=== PATIENT | female | born 1955 | race American Indian/Alaskan Native ===

== ENCOUNTER 2018-10-02 03:49 | Inpatient (IN) | payer BC, MEDICAID, OTHER ==
[2018-10-02] MEDS ORDERED: TYLENOL PO ONE (04:19)
[2018-10-02] MEDS ORDERED: TYLENOL ONE (04:22)
[2018-10-02] MEDS ORDERED: NACL 0.9% 500 ML 500 ML IV ONE (04:24)
[2018-10-02 04:27] LABS: Hematocrit 39.8 % (30.3-42.9); Hemoglobin 13.7 gm/dl (10.1-14.3); Mean Corpuscular HGB Conc 35 % (30-34); Mean Corpuscular Volume 81 fl (79-97); Platelet Count 197 K/mm3 (140-440); Red Blood Count 4.91 M/mm3 (3.65-5.03); Red Cell Distribution Width 16.6 % (13.2-15.2)
--- NOTE | 2018-10-02 04:37 | XRay Report ---
PROCEDURE: XR CHEST 1V AP TECHNIQUE: Chest radiograph single view. HISTORY: possible Sepsis COMPARISONS: None . FINDINGS: Heart: The heart is mildly enlarged.. Mediastinum/Vessels: Normal. Lungs/Pleural space: There are no infiltrates or effusions.. Bony thorax: No acute osseous abnormality. Life support devices: None. IMPRESSION: No acute cardiopulmonary abnormality. This document is electronically signed by Steven Amin MD., Oct 02 2018 04:35:41 AM ET
[2018-10-02 04:51] LABS: Albumin 2.9 g/dL (3.9-5); Calcium 8.8 mg/dL (8.4-10.2)
[2018-10-02] MEDS ORDERED: ZOSYN/NS 3.375GM/50ML 3.375 GM/50 ML BAG IV ONE (05:04)
[2018-10-02 05:07] LABS: INR 1.05 (0.87-1.13)
[2018-10-02 05:12] LABS: Bacteria,Urine 3+ /HPF (Negative); Bilirubin,Urine NEG (Negative); Blood,Urine LG (Negative); Color,Urine Amber (Yellow); Mucus,Urine 2+ /HPF; Urobilinogen,Urine < 2.0 mg/dL (<2.0)
[2018-10-02 05:13] LABS: Protein,Urine >500 mg/dL (Negative); WBC,Urine > 182.0 /HPF (0.0-6.0)
[2018-10-02] MEDS ORDERED: CALCIUM CHLORIDE 1,000 MG in NACL 0.9% 100 ML IV ONE (05:13)
[2018-10-02] MEDS ORDERED: PROVENTIL IH ONE (05:13)
[2018-10-02] MEDS ORDERED: KIONEX PO ONE (05:13)
[2018-10-02] MEDS ORDERED: HumuLIN R IV ONE (05:13)
[2018-10-02] MEDS ORDERED: NACL 0.9% 1000 ML 1,000 ML ONE (05:34)
--- NOTE | 2018-10-02 05:34 | Emergency Department Report ---
ED General Adult HPI - General Chief complaint: Hyperglycemia Stated complaint: KNEE PAIN Time Seen by Provider: 10/02/18 05:06 Source: patient, EMS Mode of arrival: Stretcher Limitations: No Limitations - History of Present Illness Initial comments: Patient is 63 years old female with history of diabetes, COPD and arthritis. Patient brought to the emergency room via EMS for evaluation of generalized weakness for the last 3 days. Patient found to be febrile with a temperature of 102.3 and tachycardic. Sepsis protocol initiated. Patient denied any cough, shortness of breath, chest pain, nausea or vomiting. Severity scale (0 -10): 0 - Related Data Allergies Allergy/AdvReac Type Severity Reaction Status Date / Time No Known Allergies Allergy Verified 10/02/18 04:22 ED Review of Systems ROS: Stated complaint: KNEE PAIN Other details as noted in HPI Comment: All other systems reviewed and negative Constitutional: chills, fever Respiratory: denies: cough, orthopnea, shortness of breath, SOB with exertion, SOB at rest, wheezing Cardiovascular: denies: chest pain, palpitations Gastrointestinal: denies: abdominal pain, nausea, vomiting Neurological: weakness. denies: headache, numbness, paresthesias, confusion, abnormal gait ED Past Medical Hx - Past Medical History Previous Medical History?: Yes Hx Hypertension: Yes Hx Diabetes: Yes Hx COPD: Yes - Surgical History Past Surgical History?: No - Social History Smoking Status: Former Smoker Substance Use Type: None ED Physical Exam - General Limitations: No Limitations General appearance: alert, in no apparent distress - Head Head exam: Present: atraumatic, normocephalic, normal inspection - ENT ENT exam: Present: mucous membranes dry - Neck Neck exam: Present: normal inspection, full ROM. Absent: tenderness, meningismus, lymphadenopathy, thyromegaly - Respiratory Respiratory exam: Present: normal lung sounds bilaterally - Cardiovascular Cardiovascular Exam: Present: regular rate, normal rhythm, normal heart sounds - GI/Abdominal GI/Abdominal exam: Present: soft, normal bowel sounds. Absent: distended, tenderness, guarding, rebound, rigid, organomegaly, mass, bruit, pulsatile mass, hernia - Extremities Exam Extremities exam: Present: normal inspection, full ROM, normal capillary refill. Absent: pedal edema, calf tenderness - Back Exam Back exam: Present: normal inspection, full ROM. Absent: tenderness, CVA tenderness (R), CVA tenderness (L), muscle spasm, paraspinal tenderness, vertebral tenderness - Neurological Exam Neurological exam: Present: alert, oriented X3, CN II-XII intact, normal gait, reflexes normal - Skin Skin exam: Present: warm, intact, normal color ED Course Vital Signs 10/02/18 10/02/18 04:18 05:26 Temperature 102.8 F H 98.7 F Pulse Rate 103 H Respiratory 24 Rate Blood Pressure 139/115 [Left] O2 Sat by Pulse 95 Oximetry ED Medical Decision Making - Lab Data Result diagrams: 10/02/18 04:17 10/02/18 04:17 - EKG Data -: EKG Interpreted by Nh EKG shows normal: sinus rhythm Rate: normal - EKG Data Interpretation: no acute changes - Radiology Data Radiology results: report reviewed Chest x-ray is unremarkable. - Medical Decision Making Patient is 63 years old female with history of diabetes, COPD and arthritis. Patient brought to the emergency room via EMS for evaluation of generalized weakness for the last 3 days. Patient found to be febrile with a temperature of 102.3 and tachycardic. Sepsis protocol initiated. Patient denied any cough, shortness of breath, chest pain, nausea or vomiting. Patient received Tylenol, normocephalic, Zosyn. Patient found to have a potassium of 6.9. Patient received insulin, Kayexalate, albuterol and calcium chloride. I discussed the patient is Dr. Magnolia Cabrera, she agreed to admit the patient to medical service. Critical Care Time: Yes Critical care time in (mins) excluding proc time.: 30 Critical care attestation.: If time is entered above; I have spent that time in minutes in the direct care of this critically ill patient, excluding procedure time. ED Disposition Clinical Impression: Sepsis, UTI (urinary tract infection), Acute renal failure, Acute hyperkalemia Disposition: OP ADMIT IP TO THIS HOSP Is pt being admited?: Yes Condition: Stable Referrals: PRIMARY CARE, [Primary Care Provider] - 3-5 Days
[2018-10-02] MEDS ORDERED: NACL 0.9% 1000 ML 1,000 ML IV ONE (05:35)
[2018-10-02] MEDS ORDERED: ZOFRAN IV PRN (05:42)
[2018-10-02] MEDS ORDERED: SODIUM CHLORIDE FLUSH SYRINGE 10 ML IV PRN (05:42)
[2018-10-02] MEDS ORDERED: PROVENTIL IH PRN (05:42)
[2018-10-02] MEDS ORDERED: NACL 0.9% 1000 ML 1,000 ML IV SCH (06:00)
[2018-10-02] MEDS ORDERED: D50W (25GM) Syringe IV PRN (06:04)
--- NOTE | 2018-10-02 06:16 | History and Physical Report ---
<SORAYA VALENTIN - Last Filed: 10/02/18 06:26> History of Present Illness Date of examination: 10/02/18 Date of admission: 10/02/1916 Chief complaint: Generalized weakness 3 days History of present illness: Patient is a 63-year-old female with PMHx of COPD, DM type 2, arthritis, obesity, who was brought to the ER by EMS for complaints of generalized weakness 3 days. Patient reports generalized weakness, denies any cough, shortness of breath on exertion, denies any chest pain denies any leg pains, denies any numbness, denies any nausea or vomiting, denies any fever. On arrival to the ER, patient's temperature was 102.3, she was tachycardic, her chest x-ray was negative for cardiopulmonary findings, her UA showed nausea, large amount of blood, 3+ bacteria and high WBCs, potassium was 6.9 and lactic acid was 2.6, her blood glucose was greater than 400. Patient was started on IV fluid, broad- spectrum antibiotics, calcium and insulin for the hyperglycemia, she was admitted for further evaluation and treatment. Past History Past Medical History: No medical history, diabetes, hypertension, hyperlipidemia Social history: no significant social history Medications and Allergies Allergies Allergy/AdvReac Type Severity Reaction Status Date / Time No Known Allergies Allergy Verified 10/02/18 04:22 Home Medications Medication Instructions Recorded Confirmed Last Taken Type AtorvaSTATin [Lipitor] 20 mg PO QHS 10/03/18 10/03/18 10/01/18 History Gabapentin [Neurontin] 100 mg PO Q8HR 10/03/18 10/03/18 10/01/18 History Glimepiride [Amaryl] 4 mg PO QAM 10/03/18 10/03/18 10/01/18 History Metformin HCl [metFORMIN] 1,000 mg PO BIDAC 10/03/18 10/03/18 10/01/18 History Omeprazole 40 mg PO QAM 10/03/18 10/03/18 10/01/18 History amLODIPine [Norvasc] 10 mg PO DAILY 10/03/18 10/03/18 10/01/18 History Active Meds: Active Medications Acetaminophen (Tylenol) 650 mg PO Q4H PRN PRN Reason: Pain MILD(1-3)/Fever >100.5/[place] Albuterol (Proventil) 2.5 mg IH Q3HRT PRN PRN Reason: Shortness Of Breath Dextrose (D50w (25gm) Syringe) 50 ml IV PRN PRN PRN Reason: Hypoglycemia Famotidine (Pepcid) 20 mg IV BID KATHY Heparin Sodium (Porcine) (Heparin) 5,000 unit SUB-Q Q12HR KATHY Sodium Chloride (Nacl 0.9% 1000 Ml) 1,000 mls @ 250 mls/hr IV ONCE ONE Stop: 10/02/18 09:34 Sodium Chloride (Nacl 0.9% 1000 Ml) 1,000 mls @ 75 mls/hr IV DIRECT KATHY Insulin Glargine (Lantus) 10 units SUB-Q QAMDIAB KATHY Insulin Human Lispro (Humalog) 0 unit SUB-Q ACHS KATHY; Protocol Ondansetron HCl (Zofran) 4 mg IV Q8H PRN PRN Reason: Nausea And Vomiting Sodium Chloride (Sodium Chloride Flush Syringe 10 Ml) 10 ml IV BID KATHY Sodium Chloride (Sodium Chloride Flush Syringe 10 Ml) 10 ml IV PRN PRN PRN Reason: LINE FLUSH Review of Systems Constitutional: fatigue, weakness, poor appetite Ears, nose, mouth and throat: other Breasts: deferred Cardiovascular: leg edema (lower extremity swelling) Gastrointestinal: other Exam - Constitutional Vitals: Temp Pulse Resp BP Pulse Ox 98.7 F 103 H 24 139/115 95 10/02/18 05:26 10/02/18 04:18 10/02/18 04:18 10/02/18 04:18 10/02/18 04:18 General appearance: Present: mild distress - EENT Eyes: Present: EOM intact, irregular pupil - Neck Neck: Present: normal ROM - Respiratory Respiratory effort: labored Respiratory: bilateral: diminished - Cardiovascular Heart rate: 93 (tachycardia) - Extremities Extremities: normal temperature, Full ROM Peripheral Pulses: within normal limits - Abdominal General gastrointestinal: Present: deferred Female genitourinary: Present: deferred - Rectal Rectal Exam: deferred - Integumentary Integumentary: Present: warm, dry - Musculoskeletal Musculoskeletal: strength equal bilaterally - Psychiatric Psychiatric: cooperative - Neurologic Neurologic: moves all extremities Results - Labs CBC & Chem 7: 10/02/18 04:17 10/02/18 04:17 Labs: Laboratory Last Values WBC 25.4 K/mm3 (4.5-11.0) H 10/02/18 04:17 RBC 4.91 M/mm3 (3.65-5.03) 10/02/18 04:17 Hgb 13.7 gm/dl (10.1-14.3) 10/02/18 04:17 Hct 39.8 % (30.3-42.9) 10/02/18 04:17 MCV 81 fl (79-97) 10/02/18 04:17 MCH 28 pg (28-32) 10/02/18 04:17 MCHC 35 % (30-34) H 10/02/18 04:17 RDW 16.6 % (13.2-15.2) H 10/02/18 04:17 Plt Count 197 K/mm3 (140-440) 10/02/18 04:17 Seg Neutrophils % Computer Assembler 10/02/18 04:17 PT 14.4 Sec. (12.2-14.9) 10/02/18 04:36 INR 1.05 (0.87-1.13) 10/02/18 04:36 VBG pH 7.304 (7.320-7.420) L 10/02/18 04:36 Sodium 126 mmol/L (137-145) L 10/02/18 04:17 Potassium 6.9 mmol/L (3.6-5.0) H* 10/02/18 04:17 Chloride 86.7 mmol/L (98-107) L 10/02/18 04:17 Carbon Dioxide 19 mmol/L (22-30) L 10/02/18 04:17 27 mmol/L 10/02/18 04:17 BUN 45 mg/dL (7-17) H 10/02/18 04:17 1.9 mg/dL (0.7-1.2) H 10/02/18 04:17 Estimated GFR 32 ml/min 10/02/18 04:17 24 % 10/02/18 04:17 Glucose 448 mg/dL (65-100) H 10/02/18 04:17 POC Glucose 372 (70-105) H 10/02/18 04:14 Lactic Acid 2.60 mmol/L (0.7-2.0) H* 10/02/18 04:36 Calcium 8.8 mg/dL (8.4-10.2) 10/02/18 04:17 0.70 mg/dL (0.1-1.2) 10/02/18 04:17 AST 58 units/L (5-40) H 10/02/18 04:17 ALT 26 units/L (7-56) 10/02/18 04:17 146 units/L (35-129) H 10/02/18 04:17 NT-Pro-B Natriuret Pep 1081 pg/mL (0-900) H 10/02/18 04:17 8.6 g/dL (6.3-8.2) H 10/02/18 04:17 2.9 g/dL (3.9-5) L 10/02/18 04:17 0.5 % 10/02/18 04:17 Teresa (Yellow) 10/02/18 04:44 Turbid (Clear) 10/02/18 04:44 5.0 (5.0-7.0) 10/02/18 04:44 Ur Specific [place] 1.015 (1.003-1.030) 10/02/18 04:44 >500 mg/dL (Negative) 10/02/18 04:44 >=500 mg/dL (Negative) 10/02/18 04:44 20 mg/dL (Negative) 10/02/18 04:44 Lg (Negative) 10/02/18 04:44 Neg (Negative) 10/02/18 04:44 Neg (Negative) 10/02/18 04:44 < 2.0 mg/dL (<2.0) 10/02/18 04:44 Ur Leukocyte Esterase Lg (Negative) 10/02/18 04:44 > 182.0 /HPF (0.0-6.0) H 10/02/18 04:44 66.0 /HPF (0.0-6.0) 10/02/18 04:44 U Epithel Cells (Auto) 2.0 /HPF (0-13.0) 10/02/18 04:44 3+ /HPF (Negative) 10/02/18 04:44 3+ /HPF 10/02/18 04:44 2+ /HPF 10/02/18 04:44 Assessment and Plan Assessment and plan: 1. Urosepsis 2. Generalized weakness 3. Acute febrile illness (due to #1) 4. Hyperkalemia (likely pseudo-hyperkalemia) 5. Uncontrolled DM type II 6. Mild CHF 7. Hypertension 8. Hyperlipidemia 9. Dehydration 10. SAMMI/likely due to dehydration 11. Osteoarthritis 12. Lactic acidosis Plan: Patient is admitted for urosepsis and febrile illness Blood culture pending Broad-spectrum antibiotics started Continue IV fluid for hydration and renal perfusion Monitor potassium and electrolytes Monitor blood glucose Vital signs every 4 hours Resume home meds 1 once available DVT prophylaxis with heparin Plan of care was discussed with patient need reinforcement Patient's condition and plan of care discussed with Dr. Cabrera Advance Directives: Yes VTE prophylaxis?: Chemical Plan of care discussed with patient/family: Yes <TIMOTHY CABRERA - Last Filed: 10/10/18 04:51> Medications and Allergies Active Meds: Active Medications Acetaminophen (Tylenol) 650 mg PO Q4H PRN PRN Reason: Pain MILD(1-3)/Fever >100.5/[place] Albuterol (Proventil) 2.5 mg IH Q3HRT PRN PRN Reason: Shortness Of Breath Dextrose (D50w (25gm) Syringe) 50 ml IV PRN PRN PRN Reason: Hypoglycemia Famotidine (Pepcid) 20 mg IV BID KATHY Heparin Sodium (Porcine) (Heparin) 5,000 unit SUB-Q Q12HR KATHY Sodium Chloride (Nacl 0.9% 1000 Ml) 1,000 mls @ 250 mls/hr IV ONCE ONE Stop: 10/02/18 09:34 Sodium Chloride (Nacl 0.45% 1000 Ml) 1,000 mls @ 100 mls/hr IV DIRECT KATHY Insulin Human Lispro (Humalog) 0 unit SUB-Q ACHS KATHY; Protocol Ondansetron HCl (Zofran) 4 mg IV Q8H PRN PRN Reason: Nausea And Vomiting Sodium Chloride (Sodium Chloride Flush Syringe 10 Ml) 10 ml IV BID KATHY Sodium Chloride (Sodium Chloride Flush Syringe 10 Ml) 10 ml IV PRN PRN PRN Reason: LINE FLUSH Exam - Constitutional Vitals: Temp Pulse Resp BP Pulse Ox 98.7 F 103 H 24 139/115 95 10/02/18 05:26 10/02/18 04:18 10/02/18 04:18 10/02/18 04:18 10/02/18 04:18 Results - Labs CBC & Chem 7: 10/03/18 04:43 10/09/18 04:52 Labs: Laboratory Last Values WBC 25.4 K/mm3 (4.5-11.0) H 10/02/18 04:17 RBC 4.91 M/mm3 (3.65-5.03) 10/02/18 04:17 Hgb 13.7 gm/dl (10.1-14.3) 10/02/18 04:17 Hct 39.8 % (30.3-42.9) 10/02/18 04:17 MCV 81 fl (79-97) 10/02/18 04:17 MCH 28 pg (28-32) 10/02/18 04:17 MCHC 35 % (30-34) H 10/02/18 04:17 RDW 16.6 % (13.2-15.2) H 10/02/18 04:17 Plt Count 197 K/mm3 (140-440) 10/02/18 04:17 Seg Neutrophils % Computer Assembler 10/02/18 04:17 PT 14.4 Sec. (12.2-14.9) 10/02/18 04:36 INR 1.05 (0.87-1.13) 10/02/18 04:36 VBG pH 7.304 (7.320-7.420) L 10/02/18 04:36 Sodium 126 mmol/L (137-145) L 10/02/18 04:17 Potassium 6.9 mmol/L (3.6-5.0) H* 10/02/18 04:17 Chloride 86.7 mmol/L (98-107) L 10/02/18 04:17 Carbon Dioxide 19 mmol/L (22-30) L 10/02/18 04:17 27 mmol/L 10/02/18 04:17 BUN 45 mg/dL (7-17) H 10/02/18 04:17 1.9 mg/dL (0.7-1.2) H 10/02/18 04:17 Estimated GFR 32 ml/min 10/02/18 04:17 24 % 10/02/18 04:17 Glucose 448 mg/dL (65-100) H 10/02/18 04:17 POC Glucose 372 (70-105) H 10/02/18 04:14 Lactic Acid 2.60 mmol/L (0.7-2.0) H* 10/02/18 04:36 Calcium 8.8 mg/dL (8.4-10.2) 10/02/18 04:17 0.70 mg/dL (0.1-1.2) 10/02/18 04:17 AST 58 units/L (5-40) H 10/02/18 04:17 ALT 26 units/L (7-56) 10/02/18 04:17 146 units/L (35-129) H 10/02/18 04:17 NT-Pro-B Natriuret Pep 1081 pg/mL (0-900) H 10/02/18 04:17 8.6 g/dL (6.3-8.2) H 10/02/18 04:17 2.9 g/dL (3.9-5) L 10/02/18 04:17 0.5 % 10/02/18 04:17 Teresa (Yellow) 10/02/18 04:44 Turbid (Clear) 10/02/18 04:44 5.0 (5.0-7.0) 10/02/18 04:44 Ur Specific [place] 1.015 (1.003-1.030) 10/02/18 04:44 >500 mg/dL (Negative) 10/02/18 04:44 >=500 mg/dL (Negative) 10/02/18 04:44 20 mg/dL (Negative) 10/02/18 04:44 Lg (Negative) 10/02/18 04:44 Neg (Negative) 10/02/18 04:44 Neg (Negative) 10/02/18 04:44 < 2.0 mg/dL (<2.0) 10/02/18 04:44 Ur Leukocyte Esterase Lg (Negative) 10/02/18 04:44 > 182.0 /HPF (0.0-6.0) H 10/02/18 04:44 66.0 /HPF (0.0-6.0) 10/02/18 04:44 U Epithel Cells (Auto) 2.0 /HPF (0-13.0) 10/02/18 04:44 3+ /HPF (Negative) 10/02/18 04:44 3+ /HPF 10/02/18 04:44 2+ /HPF 10/02/18 04:44 Assessment and Plan Assessment and plan: 63 year old woman with history of hypertension, diabetes, sleep apnea, hyperlipidemia, emergency room complaining of nausea vomiting and diarrhea 1 week and she's been unable to eat, stating that her diarrhea has resolved. She states she has a stomach problem flares up every now and then it gives her GI symptoms but she cannot recall the name of it. Last night she went to the toilet, she was unable to get up due to generalized weakness. Patient with sepsis secondary to urinary tract infection, acute renal failure, hyperkalemia, dehydration. Continue Zosyn, IV fluids. Hold long-acting insulin until the patient is able to eat, DVT prophylaxis. Follow-up potassium level
[2018-10-02] MEDS ORDERED: NACL 0.45% 1000 ML 1,000 ML IV SCH (07:00)
[2018-10-02 07:07] LABS: Band Neutrophils # (Manual) 0.8 K/mm3; Basophils % (Manual) 0 % (0.0-1.8); Eosinophils % (Manual) 0 % (0.0-4.3); Total Cells Counted 100
[2018-10-02 07:08] LABS: Anisocytosis 1+; Target Cells Few
[2018-10-02] MEDS: HumaLOG SUB-Q SCH ×4 (07:30→21:51)
[2018-10-02] MEDS ORDERED: LANTUS SUB-Q SCH (08:00)
[2018-10-02] MEDS: SODIUM CHLORIDE FLUSH SYRINGE 10 ML IV SCH ×2 (09:23→21:06)
[2018-10-02] MEDS: PEPCID IV SCH ×2 (09:23→21:05)
[2018-10-02] MEDS: HEPARIN SUB-Q SCH ×2 (09:24→21:06)
[2018-10-02] MEDS ORDERED: SODIUM BICARBONATE 150 MEQ in D5W 1,000 ML IV ONE (10:32)
--- NOTE | 2018-10-02 10:36 | Consultation ---
History of Present Illness - Reason for Consult Consult date: 10/02/18 acute renal failure, hyperkalemia, metabolic acidosis Requesting physician: SORAYA VALENTIN - History of Present Illness Patient is 63 years old female with history of diabetes, COPD and arthritis. Patient brought to the emergency room via EMS for evaluation of generalized weakness for the last 3 days. Patient found to be febrile with a temperature of 102.3 and tachycardic. Sepsis protocol initiated. Patient denied any cough, shortness of breath, chest pain, nausea or vomiting. Severity scale (0 -10): 0 ROS: Stated complaint: KNEE PAIN Other details as noted in HPI Comment: All other systems reviewed and negative Constitutional: chills, fever Respiratory: denies: cough, orthopnea, shortness of breath, SOB with exertion, SOB at rest, wheezing Cardiovascular: denies: chest pain, palpitations Gastrointestinal: denies: abdominal pain, nausea, vomiting Neurological: weakness. denies: headache, numbness, paresthesias, confusion, abnormal gait - Past Medical History Previous Medical History?: Yes Hx Hypertension: Yes Hx Diabetes: Yes Hx COPD: Yes - Surgical History Past Surgical History?: No - Social History Smoking Status: Former Smoker Substance Use Type: None Past History Past Medical History: No medical history, diabetes, hypertension, hyperlipidemia Social history: no significant social history Medications and Allergies Allergies Allergy/AdvReac Type Severity Reaction Status Date / Time No Known Allergies Allergy Verified 10/02/18 04:22 Active Meds: Active Medications Acetaminophen (Tylenol) 650 mg PO Q4H PRN PRN Reason: Pain MILD(1-3)/Fever >100.5/[place] Albuterol (Proventil) 2.5 mg IH Q3HRT PRN PRN Reason: Shortness Of Breath Dextrose (D50w (25gm) Syringe) 50 ml IV PRN PRN PRN Reason: Hypoglycemia Famotidine (Pepcid) 20 mg IV BID [facility] Last Admin: 10/02/18 09:23 Dose: 20 mg Documented by: Heparin Sodium (Porcine) (Heparin) 5,000 unit SUB-Q Q12HR [facility] Last Admin: 10/02/18 09:24 Dose: 5,000 unit Documented by: Piperacillin Sod/Tazobactam Sod (Zosyn/Ns 3.375gm/50ml) 3.375 gm in 50 mls @ 100 mls/hr IV Q8HR [facility] Insulin Human Lispro (Humalog) 0 unit SUB-Q ACHS [facility]; Protocol Last Admin: 10/02/18 07:30 Dose: Not Given Documented by: Ondansetron HCl (Zofran) 4 mg IV Q8H PRN PRN Reason: Nausea And Vomiting Sodium Chloride (Sodium Chloride Flush Syringe 10 Ml) 10 ml IV BID [facility] Last Admin: 10/02/18 09:23 Dose: 10 ml Documented by: Sodium Chloride (Sodium Chloride Flush Syringe 10 Ml) 10 ml IV PRN PRN PRN Reason: LINE FLUSH Exam - Vital Signs Vital signs: Vital Signs Temp Pulse Resp BP Pulse Ox 102.8 F H 103 H 24 139/115 95 10/02/18 04:18 10/02/18 04:18 10/02/18 04:18 10/02/18 04:18 10/02/18 04:18 - Physical Exam Narrative exam: - General Limitations: No Limitations General appearance: alert, in no apparent distress - Head Head exam: Present: atraumatic, normocephalic, normal inspection - ENT ENT exam: Present: mucous membranes dry - Neck Neck exam: Present: normal inspection, full ROM. Absent: tenderness, meningismus, lymphadenopathy, thyromegaly - Respiratory Respiratory exam: Present: normal lung sounds bilaterally - Cardiovascular Cardiovascular Exam: Present: regular rate, normal rhythm, normal heart sounds - GI/Abdominal GI/Abdominal exam: Present: soft, normal bowel sounds. Absent: distended, tenderness, guarding, rebound, rigid, organomegaly, mass, bruit, pulsatile mass, hernia - Extremities Exam Extremities exam: Present: normal inspection, full ROM, normal capillary refill. Absent: pedal edema, calf tenderness - Back Exam Back exam: Present: normal inspection, full ROM. Absent: tenderness, CVA tenderness (R), CVA tenderness (L), muscle spasm, paraspinal tenderness, vertebral tenderness - Neurological Exam Neurological exam: Present: alert, oriented X3, CN II-XII intact, normal gait, reflexes normal - Skin Skin exam: Present: warm, intact, normal color Results - Lab Results 10/02/18 04:17 10/02/18 04:17 Most recent lab results Calcium 8.8 mg/dL (8.4-10.2) 10/02/18 04:17 Assessment and Plan Impression: * SAMMI * pyelonephritis * sepsis * hyperkalemia * metabolic acidosis * hyponatremia * type 2 DM * HTN Plan: * add bicarb gtt * follow up renal us with pvr * iv abx for pyelonephritis * follow up k level, s/p kayexalate * daily lytes * strict i/os
--- NOTE | 2018-10-02 12:03 | Progress Note ---
Assessment and Plan Assessment and plan: Sepsis. Etiology secondary to UTI. Follow-up blood and urine cultures. Follow lactic acid levels Acute renal failure. Etiology secondary to sepsis/acute kidney injury. Nephrology consult. Follow-up renal ultrasound. Pyelonephritis/UTI. As above. Hyperkalemia. Etiology secondary to renal failure. follow up k level, s/p kayexalate Metabolic acidosis. Bicarbonate drip. Diabetes mellitus type 2. Continue Accu-Cheks and sliding scale as. Hypertension. Resume antihypertensive medications. History Interval history: lisa is 63 years old female with history of diabetes, COPD and arthritis. Patient brought to the emergency room via EMS for evaluation of generalized weakness for the last 3 days. Patient found to be febrile with a temperature of 102.3 and tachycardic. Sepsis protocol initiated. Patient denied any cough, shortness of breath, chest pain, nausea or vomiting. No new issues overnight. Hospitalist Physical - Constitutional Vitals: Temp Pulse Resp BP Pulse Ox 98.7 F 103 H 24 139/115 95 10/02/18 05:26 10/02/18 04:18 10/02/18 04:18 10/02/18 04:18 10/02/18 04:18 General appearance: Present: no acute distress - EENT Eyes: Present: PERRL, EOM intact ENT: hearing intact, clear oral mucosa, dentition normal - Neck Neck: Present: supple, normal ROM - Respiratory Respiratory effort: normal Respiratory: bilateral: CTA - Cardiovascular Rhythm: regular Heart Sounds: Present: S1 & S2. Absent: gallop, rub - Extremities Extremities: no ischemia, No edema, Full ROM - Abdominal General gastrointestinal: soft, non-tender, non-distended, normal bowel sounds - Integumentary Integumentary: Present: clear, warm, dry - Neurologic Neurologic: CNII-XII intact, moves all extremities Results - Labs CBC & Chem 7: 10/02/18 04:17 10/02/18 04:17 Labs: Laboratory Last Values WBC 25.4 K/mm3 (4.5-11.0) H 10/02/18 04:17 RBC 4.91 M/mm3 (3.65-5.03) 10/02/18 04:17 Hgb 13.7 gm/dl (10.1-14.3) 10/02/18 04:17 Hct 39.8 % (30.3-42.9) 10/02/18 04:17 MCV 81 fl (79-97) 10/02/18 04:17 MCH 28 pg (28-32) 10/02/18 04:17 MCHC 35 % (30-34) H 10/02/18 04:17 RDW 16.6 % (13.2-15.2) H 10/02/18 04:17 Plt Count 197 K/mm3 (140-440) 10/02/18 04:17 Add Manual Diff Complete 10/02/18 04:17 Total Counted 100 10/02/18 04:17 Seg Neutrophils % Engineer [employer] 10/02/18 04:17 Seg Neuts % (Manual) 89.0 % (40.0-70.0) H 10/02/18 04:17 3.0 % 10/02/18 04:17 3.0 % (13.4-35.0) L 10/02/18 04:17 Reactive Lymphs % (Man) 0 % 10/02/18 04:17 5.0 % (0.0-7.3) 10/02/18 04:17 0 % (0.0-4.3) 10/02/18 04:17 0 % (0.0-1.8) 10/02/18 04:17 0 % 10/02/18 04:17 0 % 10/02/18 04:17 0 % 10/02/18 04:17 0 % 10/02/18 04:17 Nucleated RBC % Not Reportable 10/02/18 04:17 Seg Neutrophils # Man 22.6 K/mm3 (1.8-7.7) H 10/02/18 04:17 Band Neutrophils # 0.8 K/mm3 10/02/18 04:17 0.8 K/mm3 (1.2-5.4) L 10/02/18 04:17 Abs React Lymphs (Man) 0.0 K/mm3 10/02/18 04:17 1.3 K/mm3 (0.0-0.8) H 10/02/18 04:17 0.0 K/mm3 (0.0-0.4) 10/02/18 04:17 0.0 K/mm3 (0.0-0.1) 10/02/18 04:17 0.0 K/mm3 10/02/18 04:17 0.0 K/mm3 10/02/18 04:17 0.0 K/mm3 10/02/18 04:17 Blast Cells # 0.0 K/mm3 10/02/18 04:17 WBC Morphology Not Reportable 10/02/18 04:17 Hypersegmented Neuts Not Reportable 10/02/18 04:17 Hyposegmented Neuts Not Reportable 10/02/18 04:17 Hypogranular Neuts Not Reportable 10/02/18 04:17 Not Reportable 10/02/18 04:17 Not Reportable 10/02/18 04:17 Not Reportable 10/02/18 04:17 Not Reportable 10/02/18 04:17 Not Reportable 10/02/18 04:17 Not Reportable 10/02/18 04:17 Appears normal 10/02/18 04:17 Not Reportable 10/02/18 04:17 Plt Clumps, EDTA Not Reportable 10/02/18 04:17 Not Reportable 10/02/18 04:17 Not Reportable 10/02/18 04:17 Not Reportable 10/02/18 04:17 Plt Morphology Comment Not Reportable 10/02/18 04:17 RBC Morphology Not Reportable 10/02/18 04:17 Dimorphic RBCs Not Reportable 10/02/18 04:17 Not Reportable 10/02/18 04:17 Not Reportable 10/02/18 04:17 Not Reportable 10/02/18 04:17 1+ 10/02/18 04:17 Not Reportable 10/02/18 04:17 Not Reportable 10/02/18 04:17 Not Reportable 10/02/18 04:17 Not Reportable 10/02/18 04:17 Not Reportable 10/02/18 04:17 Few 10/02/18 04:17 Not Reportable 10/02/18 04:17 Not Reportable 10/02/18 04:17 Not Reportable 10/02/18 04:17 Not Reportable 10/02/18 04:17 Not Reportable 10/02/18 04:17 Not Reportable 10/02/18 04:17 Not Reportable 10/02/18 04:17 Not Reportable 10/02/18 04:17 Not Reportable 10/02/18 04:17 Acanthocytes (Spur) Not Reportable 10/02/18 04:17 Rouleaux Not Reportable 10/02/18 04:17 Not Reportable 10/02/18 04:17 Not Reportable 10/02/18 04:17 Not Reportable 10/02/18 04:17 Not Reportable 10/02/18 04:17 Hem Pathologist Commnt No 10/02/18 04:17 PT 14.4 Sec. (12.2-14.9) 10/02/18 04:36 INR 1.05 (0.87-1.13) 10/02/18 04:36 VBG pH 7.304 (7.320-7.420) L 10/02/18 04:36 Sodium 126 mmol/L (137-145) L 10/02/18 04:17 Potassium 6.9 mmol/L (3.6-5.0) H* 10/02/18 04:17 Chloride 86.7 mmol/L (98-107) L 10/02/18 04:17 Carbon Dioxide 19 mmol/L (22-30) L 10/02/18 04:17 27 mmol/L 10/02/18 04:17 BUN 45 mg/dL (7-17) H 10/02/18 04:17 1.9 mg/dL (0.7-1.2) H 10/02/18 04:17 Estimated GFR 32 ml/min 10/02/18 04:17 24 % 10/02/18 04:17 Glucose 448 mg/dL (65-100) H 10/02/18 04:17 POC Glucose 330 (70-105) H 10/02/18 07:53 Lactic Acid 1.90 mmol/L (0.7-2.0) 10/02/18 07:33 Calcium 8.8 mg/dL (8.4-10.2) 10/02/18 04:17 0.70 mg/dL (0.1-1.2) 10/02/18 04:17 AST 58 units/L (5-40) H 10/02/18 04:17 ALT 26 units/L (7-56) 10/02/18 04:17 146 units/L (35-129) H 10/02/18 04:17 NT-Pro-B Natriuret Pep 1081 pg/mL (0-900) H 10/02/18 04:17 8.6 g/dL (6.3-8.2) H 10/02/18 04:17 2.9 g/dL (3.9-5) L 10/02/18 04:17 0.5 % 10/02/18 04:17 Teresa (Yellow) 10/02/18 04:44 Turbid (Clear) 10/02/18 04:44 5.0 (5.0-7.0) 10/02/18 04:44 Ur Specific [place] 1.015 (1.003-1.030) 10/02/18 04:44 >500 mg/dL (Negative) 10/02/18 04:44 >=500 mg/dL (Negative) 10/02/18 04:44 20 mg/dL (Negative) 10/02/18 04:44 Lg (Negative) 10/02/18 04:44 Neg (Negative) 10/02/18 04:44 Neg (Negative) 10/02/18 04:44 < 2.0 mg/dL (<2.0) 10/02/18 04:44 Ur Leukocyte Esterase Lg (Negative) 10/02/18 04:44 > 182.0 /HPF (0.0-6.0) H 10/02/18 04:44 66.0 /HPF (0.0-6.0) 10/02/18 04:44 U Epithel Cells (Auto) 2.0 /HPF (0-13.0) 10/02/18 04:44 3+ /HPF (Negative) 10/02/18 04:44 3+ /HPF 10/02/18 04:44 2+ /HPF 10/02/18 04:44 Active Medications - Current Medications Current Medications: Generic Name Dose Route Start Last Admin Trade Name Freq PRN Reason Stop Dose Admin Acetaminophen 650 mg 10/02/18 05:42 Tylenol PO Q4H PRN Pain MILD(1-3)/Fever >100.5/[place] Albuterol 2.5 mg 10/02/18 05:42 Proventil IH Q3HRT PRN Shortness Of Breath Dextrose 50 ml 10/02/18 06:04 D50w (25gm) Syringe IV PRN PRN Hypoglycemia Famotidine 20 mg 10/02/18 10:00 10/02/18 09:23 Pepcid IV 20 mg BID KATHY Administration Heparin Sodium (Porcine) 5,000 unit 10/02/18 10:00 10/02/18 09:24 Heparin SUB-Q 5,000 unit Q12HR KATHY Administration Piperacillin Sod/Tazobactam Sod 3.375 gm in 50 mls @ 100 mls/hr 10/02/18 14:00 Zosyn/Ns 3.375gm/50ml IV Q8HR [facility] Sodium Bicarbonate 150 meq/ 1,150 mls @ 125 mls/hr 10/02/18 10:32 10/02/18 11:00 Dextrose IV 10/02/18 19:43 125 mls/hr DIRECT ONE Administration Insulin Human Lispro 0 unit 10/02/18 07:30 10/02/18 07:30 Humalog SUB-Q Not Given ACHS [facility] Protocol Ondansetron HCl 4 mg 10/02/18 05:42 Zofran IV Q8H PRN Nausea And Vomiting Sodium Chloride 10 ml 10/02/18 10:00 10/02/18 09:23 Sodium Chloride Flush Syringe 10 Ml IV 10 ml BID KATHY Administration Sodium Chloride 10 ml 10/02/18 05:42 Sodium Chloride Flush Syringe 10 Ml IV PRN PRN LINE FLUSH
[2018-10-02 13:37] LABS: Calcium 8.9 mg/dL (8.4-10.2)
[2018-10-02] MEDS ORDERED: ZOSYN/NS 2.25 GM/50ML 2.25 GM/50 ML BAG IV SCH (14:00)
[2018-10-02] MEDS: ZOSYN/NS 3.375GM/50ML 3.375 GM/50 ML BAG IV SCH ×2 (14:00→21:06)
--- NOTE | 2018-10-02 18:03 | Ultrasound Report ---
PROCEDURE: US RENAL BILAT TECHNIQUE: Real-time sonography in multiple planes of the kidneys, ureters and urinary bladder was p erformed with image documentation. HISTORY: ARF COMPARISONS: None . FINDINGS: RIGHT kidney: Subtle area of mild increased echogenicity in relation to the remainder of the renal co rtex visualized in the anterior aspect of the right kidney measuring 1 cm. There is no acoustic shado wing. Otherwise normal echotexture. No focal renal mass, calculus, or hydronephrosis. Length: 14.6 cm. LEFT kidney: Normal echotexture. No focal renal mass, calculus, or hydronephrosis. Length: 11.0 cm. Bladder: No focal urinary bladder lesions are identified. Large postvoid residual present, 326 cc.. IMPRESSION: No evidence of hydronephrosis. . Echogenicity of the renal cortex bilaterally appears no rmal with the exception of a small nonspecific area of mild relative increased echogenicity which cou ld represent a small lipoma or angiomyolipoma. A mass is not entirely excluded. I do not see any acou stic shadowing that would suggest a nonobstructing renal calculus. This does not represent a simple c yst. Consider follow-up exam in 4 months to ensure this mildly echogenic nodule remains stable. This document is electronically signed by Karson Diaz MD., Oct 02 2018 06:02:05 PM ET
--- NOTE | 2018-10-02 20:06 | Ultrasound Report ---
PROCEDURE: US BLADDER RESIDUAL HISTORY: renal failure FINDINGS: Real-time ultrasound of the bladder was performed. Prevoid bladder volume was 430 cc and po stvoid bladder volume 27 cc. IMPRESSION: Postvoid bladder residual 3 27 cc This document is electronically signed by Maximo Modi MD., Oct 02 2018 08:05:03 PM ET
[2018-10-03] MEDS: TYLENOL PO PRN ×2 (00:01→23:58)
[2018-10-03] MEDS: ZOSYN/NS 3.375GM/50ML 3.375 GM/50 ML BAG IV SCH ×3 (06:17→23:09)
[2018-10-03 06:30] LABS: Calcium 8.9 mg/dL (8.4-10.2); Hemoglobin 12.9 gm/dl (10.1-14.3); Mean Corpuscular HGB Conc 35 % (30-34); Mean Corpuscular Volume 81 fl (79-97); Platelet Count 177 K/mm3 (140-440); Red Blood Count 4.59 M/mm3 (3.65-5.03); Red Cell Distribution Width 16.5 % (13.2-15.2)
[2018-10-03 07:15] LABS: Anisocytosis 1+; Basophils % (Manual) 0 % (0.0-1.8); Eosinophils % (Manual) 0 % (0.0-4.3); Poikilocytosis 1+; Target Cells 1+; Total Cells Counted 100
[2018-10-03 07:16] LABS: Large Platelets Few; Platelet Estimate Consistent w Auto
[2018-10-03 07:42] LABS: Protein/Creatinine Ratio,Urine 2.27
[2018-10-03] MEDS: HEPARIN SUB-Q SCH ×2 (09:01→23:11)
[2018-10-03] MEDS: PEPCID IV SCH (09:01)
[2018-10-03] MEDS: SODIUM CHLORIDE FLUSH SYRINGE 10 ML IV SCH ×2 (09:02→23:10)
[2018-10-03] MEDS: HumaLOG SUB-Q SCH ×4 (09:40→23:10)
[2018-10-03] MEDS: PEPCID PO SCH ×2 (09:41→23:11)
--- NOTE | 2018-10-03 10:13 | Progress Note ---
Assessment and Plan Impression: * SAMMI * pyelonephritis * sepsis * hyperkalemia * metabolic acidosis * hyponatremia * type 2 DM * HTN Plan: * stop bicarb gtt * k is better * cr is improved * enal us with pvr noted, angiolipoma noted, no PVR * iv abx for pyelonephritis * follow up k level, s/p kayexalate * daily lytes * strict i/os Subjective Date of service: 10/03/18 Principal diagnosis: sammi Interval history: resting in bed today Objective - Exam Narrative Exam: - General Limitations: No Limitations General appearance: alert, in no apparent distress - Head Head exam: Present: atraumatic, normocephalic, normal inspection - ENT ENT exam: Present: mucous membranes dry - Neck Neck exam: Present: normal inspection, full ROM. Absent: tenderness, meningismus, lymphadenopathy, thyromegaly - Respiratory Respiratory exam: Present: normal lung sounds bilaterally - Cardiovascular Cardiovascular Exam: Present: regular rate, normal rhythm, normal heart sounds - GI/Abdominal GI/Abdominal exam: Present: soft, normal bowel sounds. Absent: distended, tenderness, guarding, rebound, rigid, organomegaly, mass, bruit, pulsatile mass, hernia - Extremities Exam Extremities exam: Present: normal inspection, full ROM, normal capillary refill. Absent: pedal edema, calf tenderness - Back Exam Back exam: Present: normal inspection, full ROM. Absent: tenderness, CVA tenderness (R), CVA tenderness (L), muscle spasm, paraspinal tenderness, ve rtebral tenderness - Neurological Exam Neurological exam: Present: alert, oriented X3, CN II-XII intact, normal gait, reflexes normal - Skin Skin exam: Present: warm, intact, normal color - Vital Signs Vital signs: Vital Signs - 12hr 10/02/18 10/03/18 10/03/18 23:36 03:12 08:32 Temperature 102.8 F H 99.6 F 99.6 F Pulse Rate 86 82 80 Respiratory 20 22 24 Rate Blood Pressure 156/75 129/64 159/67 O2 Sat by Pulse 100 95 97 Oximetry 10/03/18 10:00 Temperature Pulse Rate Respiratory Rate Blood Pressure O2 Sat by Pulse 97 Oximetry - Lab 10/03/18 04:43 10/03/18 04:43 Most recent lab results Calcium 8.9 mg/dL (8.4-10.2) 10/03/18 04:43 108.0 mg/dL (0.1-20.0) H 10/02/18 06:43 32 mmol/L 10/02/18 06:43 245 mg/dL (5-11.8) H 10/02/18 06:43 Medications & Allergies - Medications Allergies/Adverse Reactions: Allergies No Known Allergies Allergy (Verified 10/02/18 04:22) Active Medications: Generic Name Dose Route Start Last Admin Trade Name Freq PRN Reason Stop Dose Admin Acetaminophen 650 mg 10/02/18 05:42 10/03/18 00:01 Tylenol PO 650 mg Q4H PRN Administration Pain MILD(1-3)/Fever >100.5/[place] Albuterol 2.5 mg 10/02/18 05:42 Proventil IH Q3HRT PRN Shortness Of Breath Dextrose 50 ml 10/02/18 06:04 D50w (25gm) Syringe IV PRN PRN Hypoglycemia Famotidine 20 mg 10/03/18 10:00 10/03/18 09:41 Pepcid PO 20 mg BID KATHY Administration Heparin Sodium (Porcine) 5,000 unit 10/02/18 10:00 10/03/18 09:01 Heparin SUB-Q 5,000 unit Q12HR KATHY Administration Piperacillin Sod/Tazobactam Sod 3.375 gm in 50 mls @ 100 mls/hr 10/02/18 14:00 10/03/18 06:17 Zosyn/Ns 3.375gm/50ml IV 100 mls/hr Q8HR KATHY Administration Insulin Glargine 10 units 10/03/18 22:00 Lantus SUB-Q QHS KATHY Insulin Human Lispro 0 unit 10/02/18 07:30 10/03/18 09:40 Humalog SUB-Q 6 unit ACHS KATHY Administration Protocol Ondansetron HCl 4 mg 10/02/18 05:42 Zofran IV Q8H PRN Nausea And Vomiting Sodium Chloride 10 ml 10/02/18 10:00 10/03/18 09:02 Sodium Chloride Flush Syringe 10 Ml IV 10 ml BID KATHY Administration Sodium Chloride 10 ml 10/02/18 05:42 Sodium Chloride Flush Syringe 10 Ml IV PRN PRN LINE FLUSH
--- NOTE | 2018-10-03 13:11 | Progress Note ---
Assessment and Plan Assessment and plan: Sepsis. Etiology secondary to UTI. Follow-up blood and urine cultures. Follow lactic acid levels Acute renal failure. Etiology secondary to sepsis/acute kidney injury. Nephrology consult. Renal ultrasound with no hydronephrosis, angiolipoma noted. Pyelonephritis/UTI. As above. Hyperkalemia. Etiology secondary to renal failure. follow up k level, s/p kayexalate Metabolic acidosis. Bicarbonate drip discontinued per nephrology. Diabetes mellitus type 2. Continue Accu-Cheks and sliding scale as. Hypertension. Cont. antihypertensive medications. History Interval history: lisa is 63 years old female with history of diabetes, COPD and arthritis. Patient brought to the emergency room via EMS for evaluation of generalized weakness for the last 3 days. Patient found to be febrile with a temperature of 102.3 and tachycardic. Sepsis protocol initiated. Patient denied any cough, shortness of breath, chest pain, nausea or vomiting. No new issues overnight. Hospitalist Physical - Constitutional Vitals: Temp Pulse Resp BP Pulse Ox 99.6 F 80 24 159/67 97 10/03/18 08:32 10/03/18 08:32 10/03/18 08:32 10/03/18 08:32 10/03/18 10:00 General appearance: Present: no acute distress - EENT Eyes: Present: PERRL, EOM intact ENT: hearing intact, clear oral mucosa, dentition normal - Neck Neck: Present: supple, normal ROM - Respiratory Respiratory effort: normal Respiratory: bilateral: CTA - Cardiovascular Rhythm: regular Heart Sounds: Present: S1 & S2. Absent: gallop, rub - Extremities Extremities: no ischemia, No edema, Full ROM - Abdominal General gastrointestinal: soft, non-tender, non-distended, normal bowel sounds - Integumentary Integumentary: Present: clear, warm, dry - Neurologic Neurologic: CNII-XII intact, moves all extremities Results - Labs CBC & Chem 7: 10/03/18 04:43 10/03/18 04:43 Labs: Laboratory Last Values WBC 11.8 K/mm3 (4.5-11.0) H 10/03/18 04:43 RBC 4.59 M/mm3 (3.65-5.03) 10/03/18 04:43 Hgb 12.9 gm/dl (10.1-14.3) 10/03/18 04:43 Hct 37.0 % (30.3-42.9) 10/03/18 04:43 MCV 81 fl (79-97) 10/03/18 04:43 MCH 28 pg (28-32) 10/03/18 04:43 MCHC 35 % (30-34) H 10/03/18 04:43 RDW 16.5 % (13.2-15.2) H 10/03/18 04:43 Plt Count 177 K/mm3 (140-440) 10/03/18 04:43 Add Manual Diff Complete 10/03/18 04:43 Total Counted 100 10/03/18 04:43 Seg Neutrophils % Medical Case Manager 10/02/18 04:17 Seg Neuts % (Manual) 87.0 % (40.0-70.0) H 10/03/18 04:43 0 % 10/03/18 04:43 6.0 % (13.4-35.0) L 10/03/18 04:43 Reactive Lymphs % (Man) 1.0 % 10/03/18 04:43 6.0 % (0.0-7.3) 10/03/18 04:43 0 % (0.0-4.3) 10/03/18 04:43 0 % (0.0-1.8) 10/03/18 04:43 0 % 10/03/18 04:43 0 % 10/03/18 04:43 0 % 10/03/18 04:43 0 % 10/03/18 04:43 Nucleated RBC % Not Reportable 10/03/18 04:43 Seg Neutrophils # Man 10.3 K/mm3 (1.8-7.7) H 10/03/18 04:43 Band Neutrophils # 0.0 K/mm3 10/03/18 04:43 0.7 K/mm3 (1.2-5.4) L 10/03/18 04:43 Abs React Lymphs (Man) 0.1 K/mm3 10/03/18 04:43 0.7 K/mm3 (0.0-0.8) 10/03/18 04:43 0.0 K/mm3 (0.0-0.4) 10/03/18 04:43 0.0 K/mm3 (0.0-0.1) 10/03/18 04:43 0.0 K/mm3 10/03/18 04:43 0.0 K/mm3 10/03/18 04:43 0.0 K/mm3 10/03/18 04:43 Blast Cells # 0.0 K/mm3 10/03/18 04:43 WBC Morphology Not Reportable 10/03/18 04:43 Hypersegmented Neuts Not Reportable 10/03/18 04:43 Hyposegmented Neuts Not Reportable 10/03/18 04:43 Hypogranular Neuts Not Reportable 10/03/18 04:43 Not Reportable 10/03/18 04:43 Not Reportable 10/03/18 04:43 Not Reportable 10/03/18 04:43 Not Reportable 10/03/18 04:43 Not Reportable 10/03/18 04:43 Not Reportable 10/03/18 04:43 Consistent w auto 10/03/18 04:43 Not Reportable 10/03/18 04:43 Plt Clumps, EDTA Not Reportable 10/03/18 04:43 Few 10/03/18 04:43 Not Reportable 10/03/18 04:43 Not Reportable 10/03/18 04:43 Plt Morphology Comment Not Reportable 10/03/18 04:43 RBC Morphology Not Reportable 10/03/18 04:43 Dimorphic RBCs Not Reportable 10/03/18 04:43 Not Reportable 10/03/18 04:43 Not Reportable 10/03/18 04:43 1+ 10/03/18 04:43 1+ 10/03/18 04:43 Not Reportable 10/03/18 04:43 Not Reportable 10/03/18 04:43 Not Reportable 10/03/18 04:43 Not Reportable 10/03/18 04:43 Not Reportable 10/03/18 04:43 1+ 10/03/18 04:43 Not Reportable 10/03/18 04:43 Not Reportable 10/03/18 04:43 Not Reportable 10/03/18 04:43 Not Reportable 10/03/18 04:43 Not Reportable 10/03/18 04:43 Not Reportable 10/03/18 04:43 Not Reportable 10/03/18 04:43 Not Reportable 10/03/18 04:43 Not Reportable 10/03/18 04:43 Acanthocytes (Spur) Not Reportable 10/03/18 04:43 Rouleaux Not Reportable 10/03/18 04:43 Not Reportable 10/03/18 04:43 Not Reportable 10/03/18 04:43 Not Reportable 10/03/18 04:43 Not Reportable 10/03/18 04:43 Hem Pathologist Commnt No 10/03/18 04:43 PT 14.4 Sec. (12.2-14.9) 10/02/18 04:36 INR 1.05 (0.87-1.13) 10/02/18 04:36 VBG pH 7.304 (7.320-7.420) L 10/02/18 04:36 Sodium 135 mmol/L (137-145) L 10/03/18 04:43 Potassium 3.2 mmol/L (3.6-5.0) L 10/03/18 04:43 Chloride 94.3 mmol/L (98-107) L 10/03/18 04:43 Carbon Dioxide 27 mmol/L (22-30) 10/03/18 04:43 17 mmol/L 10/03/18 04:43 BUN 42 mg/dL (7-17) H 10/03/18 04:43 1.5 mg/dL (0.7-1.2) H 10/03/18 04:43 Estimated GFR 43 ml/min 10/03/18 04:43 28 % 10/03/18 04:43 Glucose 321 mg/dL (65-100) H 10/03/18 04:43 POC Glucose 386 (70-105) H 10/03/18 10:54 Lactic Acid 1.90 mmol/L (0.7-2.0) 10/02/18 07:33 Calcium 8.9 mg/dL (8.4-10.2) 10/03/18 04:43 0.70 mg/dL (0.1-1.2) 10/02/18 04:17 AST 58 units/L (5-40) H 10/02/18 04:17 ALT 26 units/L (7-56) 10/02/18 04:17 146 units/L (35-129) H 10/02/18 04:17 NT-Pro-B Natriuret Pep 1081 pg/mL (0-900) H 10/02/18 04:17 8.6 g/dL (6.3-8.2) H 10/02/18 04:17 2.9 g/dL (3.9-5) L 10/02/18 04:17 0.5 % 10/02/18 04:17 Teresa (Yellow) 10/02/18 04:44 Turbid (Clear) 10/02/18 04:44 5.0 (5.0-7.0) 10/02/18 04:44 Ur Specific [place] 1.015 (1.003-1.030) 10/02/18 04:44 >500 mg/dL (Negative) 10/02/18 04:44 >=500 mg/dL (Negative) 10/02/18 04:44 20 mg/dL (Negative) 10/02/18 04:44 Lg (Negative) 10/02/18 04:44 Neg (Negative) 10/02/18 04:44 Neg (Negative) 10/02/18 04:44 < 2.0 mg/dL (<2.0) 10/02/18 04:44 Ur Leukocyte Esterase Lg (Negative) 10/02/18 04:44 > 182.0 /HPF (0.0-6.0) H 10/02/18 04:44 66.0 /HPF (0.0-6.0) 10/02/18 04:44 U Epithel Cells (Auto) 2.0 /HPF (0-13.0) 10/02/18 04:44 3+ /HPF (Negative) 10/02/18 04:44 3+ /HPF 10/02/18 04:44 2+ /HPF 10/02/18 04:44 108.0 mg/dL (0.1-20.0) H 10/02/18 06:43 Protein/Creatinin Ratio 2.27 10/02/18 06:43 32 mmol/L 10/02/18 06:43 245 mg/dL (5-11.8) H 10/02/18 06:43 Active Medications - Current Medications Current Medications: Generic Name Dose Route Start Last Admin Trade Name Freq PRN Reason Stop Dose Admin Acetaminophen 650 mg 10/02/18 05:42 10/03/18 00:01 Tylenol PO 650 mg Q4H PRN Administration Pain MILD(1-3)/Fever >100.5/[place] Albuterol 2.5 mg 10/02/18 05:42 Proventil IH Q3HRT PRN Shortness Of Breath Dextrose 50 ml 10/02/18 06:04 D50w (25gm) Syringe IV PRN PRN Hypoglycemia Famotidine 20 mg 10/03/18 10:00 10/03/18 09:41 Pepcid PO 20 mg BID KATHY Administration Heparin Sodium (Porcine) 5,000 unit 10/02/18 10:00 10/03/18 09:01 Heparin SUB-Q 5,000 unit Q12HR KATHY Administration Piperacillin Sod/Tazobactam Sod 3.375 gm in 50 mls @ 100 mls/hr 10/02/18 14:00 10/03/18 06:17 Zosyn/Ns 3.375gm/50ml IV 100 mls/hr Q8HR KATHY Administration Insulin Glargine 10 units 10/03/18 22:00 Lantus SUB-Q QHS KATHY Insulin Human Lispro 0 unit 10/02/18 07:30 10/03/18 09:40 Humalog SUB-Q 6 unit ACHS KATHY Administration Protocol Ondansetron HCl 4 mg 10/02/18 05:42 Zofran IV Q8H PRN Nausea And Vomiting Sodium Chloride 10 ml 10/02/18 10:00 10/03/18 09:02 Sodium Chloride Flush Syringe 10 Ml IV 10 ml BID KATHY Administration Sodium Chloride 10 ml 10/02/18 05:42 Sodium Chloride Flush Syringe 10 Ml IV PRN PRN LINE FLUSH Nutrition/Malnutrition Assess - Dietary Evaluation Nutrition/Malnutrition Findings: Nutrition Notes Start: 10/02/18 15:44 Freq: Status: Active Protocol: Document 10/02/18 15:44 NUZHAT (Rec: 10/02/18 15:51 [email or web address] [id number]) Nutrition Notes Need for Assessment generated from: MD Order,Education Initial or Follow up Brief Note Current Diagnosis Diabetes,Hypertension, Hyperlipidemia Other Pertinent Diagnosis Urosepsis, Generalized weakness, Dehydration Current Diet Renal/Cardiac Labs/Tests Na 133 BG 401 BUN 43 Cr 1.7 Pertinent Medications Reviewed Height 5 ft 8 in Weight 163.293 kg [place] Body Weight (kg) 63.63 BMI 54.7 Subjective/Other Information RD consulted for diet education. Is patient on ventilator? No Is Patient Ambulatory and/or Out of Bed No REE-([facility]-confined to bed) 2693.712 Kcal/Kg value to use for calculation 11 Approximate Energy Requirements Using 1796 kcal/Kg Calculation Used for Recommendations Kcal/kg Additional Notes Pro needs 0.8-1.2g/kg adjBW: 91-136g/day Fluid needs per MD Nutrition Intervention Follow-Up By: 10/04/18 Additional Comments F/U: diet education needs, intakes
--- NOTE | 2018-10-03 22:59 | XRay Report ---
PROCEDURE: XR CHEST 1V AP TECHNIQUE: Chest radiograph single view. HISTORY: SOB COMPARISONS: Prior chest x-ray 10/02/2018 . FINDINGS: Heart: Magnified due to projection, appears to be upper normal size to mildly enlarged. This is uncha nged.. Mediastinum/Vessels: Normal. Lungs/Pleural space: Clear.. Bony thorax: No acute osseous abnormality. Life support devices: None. IMPRESSION: Heart size upper normal to mildly enlarged. No other abnormalities are seen.. This document is electronically signed by Karson Diaz MD., Oct 03 2018 10:57:11 PM ET
[2018-10-03] MEDS: LANTUS SUB-Q SCH (23:10)
[2018-10-04] MEDS: ZOSYN/NS 3.375GM/50ML 3.375 GM/50 ML BAG IV SCH ×3 (06:30→21:53)
[2018-10-04 06:37] LABS: Calcium 8.6 mg/dL (8.4-10.2)
[2018-10-04] MEDS: HumaLOG SUB-Q SCH ×4 (09:25→21:55)
--- NOTE | 2018-10-04 10:19 | Progress Note ---
Assessment and Plan Impression: * SAMMI * pyelonephritis * bactermia * sepsis * hyperkalemia--resolved * metabolic acidosis * hyponatremia * hypokalemia * type 2 DM * HTN Plan: * stop bicarb gtt, add gentle ivfs * k is better * cr is improved * enal us with pvr noted, angiolipoma noted, no PVR * iv abx for pyelonephritis/bacteremia * follow up k level, s/p kayexalate * daily lytes * strict i/os Subjective Date of service: 10/04/18 Principal diagnosis: sammi Interval history: resting in bed today Objective - Exam Narrative Exam: - General Limitations: No Limitations General appearance: alert, in no apparent distress - Head Head exam: Present: atraumatic, normocephalic, normal inspection - ENT ENT exam: Present: mucous membranes dry - Neck Neck exam: Present: normal inspection, full ROM. Absent: tenderness, meningismus, lymphadenopathy, thyromegaly - Respiratory Respiratory exam: Present: normal lung sounds bilaterally - Cardiovascular Cardiovascular Exam: Present: regular rate, normal rhythm, normal heart sounds - GI/Abdominal GI/Abdominal exam: Present: soft, normal bowel sounds. Absent: distended, ten derness, guarding, rebound, rigid, organomegaly, mass, bruit, pulsatile mass, hernia - Extremities Exam Extremities exam: Present: normal inspection, full ROM, normal capillary refill. Absent: pedal edema, calf tenderness - Back Exam Back exam: Present: normal inspection, full ROM. Absent: tenderness, CVA tenderness (R), CVA tenderness (L), muscle spasm, paraspinal tenderness, vertebral tenderness - Neurological Exam Neurological exam: Present: alert, oriented X3, CN II-XII intact, normal gait, reflexes normal - Skin Skin exam: Present: warm, intact, normal color - Vital Signs Vital signs: Vital Signs - 12hr 10/03/18 10/04/18 10/04/18 23:43 00:00 03:45 Temperature 102.5 F H 99.1 F Pulse Rate 75 76 64 Respiratory 22 18 18 Rate Blood Pressure 176/81 153/79 Blood Pressure [Left] O2 Sat by Pulse 96 99 95 Oximetry 10/04/18 10/04/18 10/04/18 08:00 08:12 09:05 Temperature Pulse Rate 68 Respiratory Rate Blood Pressure Blood Pressure 161/72 [Left] O2 Sat by Pulse 100 95 Oximetry - Lab 10/03/18 04:43 10/04/18 04:24 Most recent lab results Calcium 8.6 mg/dL (8.4-10.2) 10/04/18 04:24 108.0 mg/dL (0.1-20.0) H 10/02/18 06:43 32 mmol/L 10/02/18 06:43 245 mg/dL (5-11.8) H 10/02/18 06:43 Medications & Allergies - Medications Allergies/Adverse Reactions: Allergies No Known Allergies Allergy (Verified 10/02/18 04:22) Home Medications: Home Medications Medication Instructions Recorded Confirmed Last Taken Type AtorvaSTATin [Lipitor] 20 mg PO QHS 10/03/18 10/03/18 10/01/18 History Gabapentin [Neurontin] 100 mg PO Q8HR 10/03/18 10/03/18 10/01/18 History Glimepiride [Amaryl] 4 mg PO QAM 10/03/18 10/03/18 10/01/18 History Metformin HCl [metFORMIN] 1,000 mg PO BIDAC 10/03/18 10/03/18 10/01/18 History Omeprazole 40 mg PO QAM 10/03/18 10/03/18 10/01/18 History amLODIPine [Norvasc] 10 mg PO DAILY 10/03/18 10/03/18 10/01/18 History Active Medications: Generic Name Dose Route Start Last Admin Trade Name Freq PRN Reason Stop Dose Admin Acetaminophen 650 mg 10/02/18 05:42 10/03/18 23:58 Tylenol PO 650 mg Q4H PRN Administration Pain MILD(1-3)/Fever >100.5/[place] Albuterol 2.5 mg 10/02/18 05:42 Proventil IH Q3HRT PRN Shortness Of Breath Dextrose 50 ml 10/02/18 06:04 D50w (25gm) Syringe IV PRN PRN Hypoglycemia Famotidine 20 mg 10/03/18 10:00 10/03/18 23:11 Pepcid PO 20 mg BID KATHY Administration Heparin Sodium (Porcine) 5,000 unit 10/02/18 10:00 10/03/18 23:11 Heparin SUB-Q 5,000 unit Q12HR KATHY Administration Hydralazine HCl 10 mg 10/03/18 20:33 Apresoline PO Q4H PRN Blood Pressure Piperacillin Sod/Tazobactam Sod 3.375 gm in 50 mls @ 100 mls/hr 10/02/18 14:00 10/04/18 06:30 Zosyn/Ns 3.375gm/50ml IV 100 mls/hr Q8HR KATHY Administration Insulin Glargine 10 units 10/03/18 22:00 10/03/18 23:10 Lantus SUB-Q 10 units QHS KATHY Administration Insulin Human Lispro 0 unit 10/02/18 07:30 10/03/18 23:10 Humalog SUB-Q 4 unit ACHS KATHY Administration Protocol Ondansetron HCl 4 mg 10/02/18 05:42 Zofran IV Q8H PRN Nausea And Vomiting Sodium Chloride 10 ml 10/02/18 10:00 10/03/18 23:10 Sodium Chloride Flush Syringe 10 Ml IV 10 ml BID KATHY Administration Sodium Chloride 10 ml 10/02/18 05:42 Sodium Chloride Flush Syringe 10 Ml IV PRN PRN LINE FLUSH
[2018-10-04] MEDS ORDERED: NACL 0.45% 1000 ML 1,000 ML with KCL 20 MEQ IV SCH (11:00)
[2018-10-04] MEDS ORDERED: MAGNESIUM SULFATE 2GM/50ML 2 GM/50 ML BAG IV ONE (12:00)
--- NOTE | 2018-10-04 12:13 | Progress Note ---
Assessment and Plan Assessment and plan: Sepsis. Etiology secondary to UTI. Follow-up blood and urine cultures. Follow lactic acid levels Gram-negative aron bacteremia. Follow-up ID and sensitivities. Consider ID consultation. Acute renal failure. Etiology secondary to sepsis/acute kidney injury. Nephrology following. Renal ultrasound with no hydronephrosis, angiolipoma noted. Pyelonephritis/UTI. As above. Hyperkalemia. Etiology secondary to renal failure. follow up k level, s/p kayexalate Metabolic acidosis. Bicarbonate drip discontinued per nephrology. Diabetes mellitus type 2. Continue Accu-Cheks and sliding scale as. Hypertension. Cont. antihypertensive medications. History Interval history: lisa is 63 years old female with history of diabetes, COPD and arthritis. P lisa brought to the emergency room via EMS for evaluation of generalized weakness for the last 3 days. Patient found to be febrile with a temperature of 102.3 and tachycardic. Sepsis protocol initiated. Patient denied any cough, shortness of breath, chest pain, nausea or vomiting. No new issues overnight. Hospitalist Physical - Constitutional Vitals: Temp Pulse Resp BP Pulse Ox 99.1 F 68 18 161/72 95 10/04/18 03:45 10/04/18 08:12 10/04/18 03:45 10/04/18 08:00 10/04/18 09:05 General appearance: Present: no acute distress - EENT Eyes: Present: PERRL, EOM intact ENT: hearing intact, clear oral mucosa, dentition normal - Neck Neck: Present: supple, normal ROM - Respiratory Respiratory effort: normal Respiratory: bilateral: CTA - Cardiovascular Rhythm: regular Heart Sounds: Present: S1 & S2. Absent: gallop, rub - Extremities Extremities: no ischemia, No edema, Full ROM - Abdominal General gastrointestinal: soft, non-tender, non-distended, normal bowel sounds - Integumentary Integumentary: Present: clear, warm, dry - Neurologic Neurologic: CNII-XII intact, moves all extremities Results - Labs CBC & Chem 7: 10/03/18 04:43 10/04/18 04:24 Labs: Laboratory Last Values WBC 11.8 K/mm3 (4.5-11.0) H 10/03/18 04:43 RBC 4.59 M/mm3 (3.65-5.03) 10/03/18 04:43 Hgb 12.9 gm/dl (10.1-14.3) 10/03/18 04:43 Hct 37.0 % (30.3-42.9) 10/03/18 04:43 MCV 81 fl (79-97) 10/03/18 04:43 MCH 28 pg (28-32) 10/03/18 04:43 MCHC 35 % (30-34) H 10/03/18 04:43 RDW 16.5 % (13.2-15.2) H 10/03/18 04:43 Plt Count 177 K/mm3 (140-440) 10/03/18 04:43 Add Manual Diff Complete 10/03/18 04:43 Total Counted 100 10/03/18 04:43 Seg Neutrophils % [employer] 10/02/18 04:17 Seg Neuts % (Manual) 87.0 % (40.0-70.0) H 10/03/18 04:43 0 % 10/03/18 04:43 6.0 % (13.4-35.0) L 10/03/18 04:43 Reactive Lymphs % (Man) 1.0 % 10/03/18 04:43 6.0 % (0.0-7.3) 10/03/18 04:43 0 % (0.0-4.3) 10/03/18 04:43 0 % (0.0-1.8) 10/03/18 04:43 0 % 10/03/18 04:43 0 % 10/03/18 04:43 0 % 10/03/18 04:43 0 % 10/03/18 04:43 Nucleated RBC % Not Reportable 10/03/18 04:43 Seg Neutrophils # Man 10.3 K/mm3 (1.8-7.7) H 10/03/18 04:43 Band Neutrophils # 0.0 K/mm3 10/03/18 04:43 0.7 K/mm3 (1.2-5.4) L 10/03/18 04:43 Abs React Lymphs (Man) 0.1 K/mm3 10/03/18 04:43 0.7 K/mm3 (0.0-0.8) 10/03/18 04:43 0.0 K/mm3 (0.0-0.4) 10/03/18 04:43 0.0 K/mm3 (0.0-0.1) 10/03/18 04:43 0.0 K/mm3 10/03/18 04:43 0.0 K/mm3 10/03/18 04:43 0.0 K/mm3 10/03/18 04:43 Blast Cells # 0.0 K/mm3 10/03/18 04:43 WBC Morphology Not Reportable 10/03/18 04:43 Hypersegmented Neuts Not Reportable 10/03/18 04:43 Hyposegmented Neuts Not Reportable 10/03/18 04:43 Hypogranular Neuts Not Reportable 10/03/18 04:43 Not Reportable 10/03/18 04:43 Not Reportable 10/03/18 04:43 Not Reportable 10/03/18 04:43 Not Reportable 10/03/18 04:43 Not Reportable 10/03/18 04:43 Not Reportable 10/03/18 04:43 Consistent w auto 10/03/18 04:43 Not Reportable 10/03/18 04:43 Plt Clumps, EDTA Not Reportable 10/03/18 04:43 Few 10/03/18 04:43 Not Reportable 10/03/18 04:43 Not Reportable 10/03/18 04:43 Plt Morphology Comment Not Reportable 10/03/18 04:43 RBC Morphology Not Reportable 10/03/18 04:43 Dimorphic RBCs Not Reportable 10/03/18 04:43 Not Reportable 10/03/18 04:43 Not Reportable 10/03/18 04:43 1+ 10/03/18 04:43 1+ 10/03/18 04:43 Not Reportable 10/03/18 04:43 Not Reportable 10/03/18 04:43 Not Reportable 10/03/18 04:43 Not Reportable 10/03/18 04:43 Not Reportable 10/03/18 04:43 1+ 10/03/18 04:43 Not Reportable 10/03/18 04:43 Not Reportable 10/03/18 04:43 Not Reportable 10/03/18 04:43 Not Reportable 10/03/18 04:43 Not Reportable 10/03/18 04:43 Not Reportable 10/03/18 04:43 Not Reportable 10/03/18 04:43 Not Reportable 10/03/18 04:43 Not Reportable 10/03/18 04:43 Acanthocytes (Spur) Not Reportable 10/03/18 04:43 Rouleaux Not Reportable 10/03/18 04:43 Not Reportable 10/03/18 04:43 Not Reportable 10/03/18 04:43 Not Reportable 10/03/18 04:43 Not Reportable 10/03/18 04:43 Hem Pathologist Commnt No 10/03/18 04:43 PT 14.4 Sec. (12.2-14.9) 10/02/18 04:36 INR 1.05 (0.87-1.13) 10/02/18 04:36 VBG pH 7.304 (7.320-7.420) L 10/02/18 04:36 Sodium 137 mmol/L (137-145) 10/04/18 04:24 Potassium 3.1 mmol/L (3.6-5.0) L 10/04/18 04:24 Chloride 94.7 mmol/L (98-107) L 10/04/18 04:24 Carbon Dioxide 28 mmol/L (22-30) 10/04/18 04:24 17 mmol/L 10/04/18 04:24 BUN 36 mg/dL (7-17) H 10/04/18 04:24 1.6 mg/dL (0.7-1.2) H 10/04/18 04:24 Estimated GFR 40 ml/min 10/04/18 04:24 23 % 10/04/18 04:24 Glucose 188 mg/dL (65-100) H 10/04/18 04:24 POC Glucose 225 (70-105) H 10/03/18 22:11 Lactic Acid 1.90 mmol/L (0.7-2.0) 10/02/18 07:33 Calcium 8.6 mg/dL (8.4-10.2) 10/04/18 04:24 Magnesium 2.20 mg/dL (1.7-2.3) 10/04/18 04:24 0.70 mg/dL (0.1-1.2) 10/02/18 04:17 AST 58 units/L (5-40) H 10/02/18 04:17 ALT 26 units/L (7-56) 10/02/18 04:17 146 units/L (35-129) H 10/02/18 04:17 NT-Pro-B Natriuret Pep 1081 pg/mL (0-900) H 10/02/18 04:17 8.6 g/dL (6.3-8.2) H 10/02/18 04:17 2.9 g/dL (3.9-5) L 10/02/18 04:17 0.5 % 10/02/18 04:17 Teresa (Yellow) 10/02/18 04:44 Turbid (Clear) 10/02/18 04:44 5.0 (5.0-7.0) 10/02/18 04:44 Ur Specific [place] 1.015 (1.003-1.030) 10/02/18 04:44 >500 mg/dL (Negative) 10/02/18 04:44 >=500 mg/dL (Negative) 10/02/18 04:44 20 mg/dL (Negative) 10/02/18 04:44 Lg (Negative) 10/02/18 04:44 Neg (Negative) 10/02/18 04:44 Neg (Negative) 10/02/18 04:44 < 2.0 mg/dL (<2.0) 10/02/18 04:44 Ur Leukocyte Esterase Lg (Negative) 10/02/18 04:44 > 182.0 /HPF (0.0-6.0) H 10/02/18 04:44 66.0 /HPF (0.0-6.0) 10/02/18 04:44 U Epithel Cells (Auto) 2.0 /HPF (0-13.0) 10/02/18 04:44 3+ /HPF (Negative) 10/02/18 04:44 3+ /HPF 10/02/18 04:44 2+ /HPF 10/02/18 04:44 108.0 mg/dL (0.1-20.0) H 10/02/18 06:43 Protein/Creatinin Ratio 2.27 10/02/18 06:43 32 mmol/L 10/02/18 06:43 245 mg/dL (5-11.8) H 10/02/18 06:43 Active Medications - Current Medications Current Medications: Generic Name Dose Route Start Last Admin Trade Name Freq PRN Reason Stop Dose Admin Acetaminophen 650 mg 10/02/18 05:42 10/03/18 23:58 Tylenol PO 650 mg Q4H PRN Administration Pain MILD(1-3)/Fever >100.5/[place] Albuterol 2.5 mg 10/02/18 05:42 Proventil IH Q3HRT PRN Shortness Of Breath Dextrose 50 ml 10/02/18 06:04 D50w (25gm) Syringe IV PRN PRN Hypoglycemia Famotidine 20 mg 10/03/18 10:00 10/03/18 23:11 Pepcid PO 20 mg BID KATHY Administration Heparin Sodium (Porcine) 5,000 unit 10/02/18 10:00 10/03/18 23:11 Heparin SUB-Q 5,000 unit Q12HR KATHY Administration Hydralazine HCl 10 mg 10/03/18 20:33 Apresoline PO Q4H PRN Blood Pressure Piperacillin Sod/Tazobactam Sod 3.375 gm in 50 mls @ 100 mls/hr 10/02/18 14:00 10/04/18 06:30 Zosyn/Ns 3.375gm/50ml IV 100 mls/hr Q8HR KATHY Administration Magnesium Sulfate 2 gm in 50 mls @ 25 mls/hr 10/04/18 12:00 Magnesium Sulfate 2gm/50ml IV 10/04/18 13:59 ONCE ONE Potassium Chloride/Sodium Chloride 20 meq in 1,000 mls @ 75 mls/hr 10/04/18 11:00 Ns 0.45/Kcl 20meq IV DIRECT KATHY Insulin Glargine 10 units 10/03/18 22:00 10/03/18 23:10 Lantus SUB-Q 10 units QHS KATHY Administration Insulin Human Lispro 0 unit 10/02/18 07:30 10/03/18 23:10 Humalog SUB-Q 4 unit ACHS KATHY Administration Protocol Ondansetron HCl 4 mg 10/02/18 05:42 Zofran IV Q8H PRN Nausea And Vomiting Sodium Chloride 10 ml 10/02/18 10:00 10/03/18 23:10 Sodium Chloride Flush Syringe 10 Ml IV 10 ml BID KATHY Administration Sodium Chloride 10 ml 10/02/18 05:42 Sodium Chloride Flush Syringe 10 Ml IV PRN PRN LINE FLUSH Nutrition/Malnutrition Assess - Dietary Evaluation Nutrition/Malnutrition Findings: Nutrition Notes Start: 10/02/18 15:44 Freq: Status: Active Protocol: Document 10/02/18 15:44 NUZHAT (Rec: 10/02/18 15:51 [email or web address] [email or web address]) Nutrition Notes Need for Assessment generated from: MD Order,Education Initial or Follow up Brief Note Current Diagnosis Diabetes,Hypertension, Hyperlipidemia Other Pertinent Diagnosis Urosepsis, Generalized weakness, Dehydration Current Diet Renal/Cardiac Labs/Tests Na 133 BG 401 BUN 43 Cr 1.7 Pertinent Medications Reviewed Height 5 ft 8 in Weight 163.293 kg Brave Body Weight (kg) 63.63 BMI 54.7 Subjective/Other Information RD consulted for diet education. Is patient on ventilator? No Is Patient Ambulatory and/or Out of Bed No REE-([facility]-confined to bed) 2693.712 Kcal/Kg value to use for calculation 11 Approximate Energy Requirements Using 1796 kcal/Kg Calculation Used for Recommendations Kcal/kg Additional Notes Pro needs 0.8-1.2g/kg adjBW: 91-136g/day Fluid needs per MD Nutrition Intervention Follow-Up By: 10/04/18 Additional Comments F/U: diet education needs, intakes
[2018-10-04] MEDS: PEPCID PO SCH ×2 (14:04→21:53)
[2018-10-04] MEDS: HEPARIN SUB-Q SCH ×2 (14:04→21:53)
[2018-10-04] MEDS: NS 0.45/KCL 20MEQ 20 MEQ/1,000 ML BAG IV SCH (14:05)
[2018-10-04] MEDS: SODIUM CHLORIDE FLUSH SYRINGE 10 ML IV SCH ×2 (14:06→21:53)
--- NOTE | 2018-10-04 20:26 | Event Note ---
Date: 10/04/18 Received consultation for GNR bacteremia likely from UTI. Patient on zosyn. Dr Ramires will see patient tomorrow.
[2018-10-04] MEDS: TYLENOL PO PRN (21:53)
[2018-10-04] MEDS: LANTUS SUB-Q SCH (21:54)
[2018-10-05] MEDS: NS 0.45/KCL 20MEQ 20 MEQ/1,000 ML BAG IV SCH (05:21)
[2018-10-05] MEDS: ZOSYN/NS 3.375GM/50ML 3.375 GM/50 ML BAG IV SCH (05:21)
[2018-10-05 05:48] LABS: Calcium 8.6 mg/dL (8.4-10.2)
[2018-10-05] MEDS: HumaLOG SUB-Q SCH ×4 (08:56→22:47)
--- NOTE | 2018-10-05 09:54 | Consultation ---
History of Present Illness - Reason for Consult Consult date: 10/05/18 GNR bacteremia Requesting physician: KENYA GAMBLE - History of Present Illness The patient is a 63-year-old female with diabetes, COPD on home oxygen and arthritis was brought to the emergency room on 10/02/2018 with complaints of weakness. Patient states that she was sitting on the toilet but then was unable to get up. She denied any urinary burning as such. She reports of fever as well as some nausea and vomiting prior to admission. Upon evaluation in the ER, she was noted to have significant fever, leukocytosis and concerns for sepsis. UA was concerning for possible UTI, blood cultures grew Escherichia coli. Infectious diseases was consulted. Patient also had acute kidney injury which is gradually improving. Nephrology is following. Currently, she denies any fevers. Denies any nausea or vomiting. Denies any diarrhea or tolerating antibiotics well. No rash. Denies any urinary burning. Does report a previous history of UTIs but denies any hospitalizations for it. Review of Systems: General: fever, chills, improving HEENT: no new visual disturbance Respiratory: No cough, sputum, hemoptysis or shortness of breath Cardiovascular: No chest pain, syncope Gastrointestinal: No nausea, vomiting or diarrhea at present Genitourinary: No dysuria or hematuria Musculoskeletal: No new or worsening neck pain or back pain Neurologic: No headaches, seizures Hematologic: No easy bruising or bleeding Endocrine: No night sweats or acute weight loss Skin: negative for rash, jaundice Psychiatric: No suicidal or homicidal ideation Past History Past Medical History: No medical history, diabetes, hypertension, hyperlipidemia Social history: no significant social history Family history: diabetes Medications and Allergies Allergies Allergy/AdvReac Type Severity Reaction Status Date / Time No Known Allergies Allergy Verified 10/02/18 04:22 Home Medications Medication Instructions Recorded Confirmed Last Taken Type AtorvaSTATin [Lipitor] 20 mg PO QHS 10/03/18 10/03/18 10/01/18 History Gabapentin [Neurontin] 100 mg PO Q8HR 10/03/18 10/03/18 10/01/18 History Glimepiride [Amaryl] 4 mg PO QAM 10/03/18 10/03/18 10/01/18 History Metformin HCl [metFORMIN] 1,000 mg PO BIDAC 10/03/18 10/03/18 10/01/18 History Omeprazole 40 mg PO QAM 10/03/18 10/03/18 10/01/18 History amLODIPine [Norvasc] 10 mg PO DAILY 10/03/18 10/03/18 10/01/18 History Active Meds: Active Medications Acetaminophen (Tylenol) 650 mg PO Q4H PRN PRN Reason: Pain MILD(1-3)/Fever >100.5/[place] Last Admin: 10/04/18 21:53 Dose: 650 mg Documented by: Albuterol (Proventil) 2.5 mg IH Q3HRT PRN PRN Reason: Shortness Of Breath Dextrose (D50w (25gm) Syringe) 50 ml IV PRN PRN PRN Reason: Hypoglycemia Famotidine (Pepcid) 20 mg PO BID [facility] Last Admin: 10/04/18 21:53 Dose: 20 mg Documented by: Heparin Sodium (Porcine) (Heparin) 5,000 unit SUB-Q Q12HR [facility] Last Admin: 10/04/18 21:53 Dose: 5,000 unit Documented by: Hydralazine HCl (Apresoline) 10 mg PO Q4H PRN PRN Reason: Blood Pressure Piperacillin Sod/Tazobactam Sod (Zosyn/Ns 3.375gm/50ml) 3.375 gm in 50 mls @ 100 mls/hr IV Q8HR [facility] Last Admin: 10/05/18 05:21 Dose: 100 mls/hr Documented by: Potassium Chloride/Sodium Chloride (Ns 0.45/Kcl 20meq) 20 meq in 1,000 mls @ 75 mls/hr IV DIRECT [facility] Last Admin: 10/05/18 05:21 Dose: 75 mls/hr Documented by: Insulin Glargine (Lantus) 10 units SUB-Q QHS [facility] Last Admin: 10/04/18 21:54 Dose: 10 units Documented by: Insulin Human Lispro (Humalog) 0 unit SUB-Q [facility]; Protocol Last Admin: 10/05/18 08:56 Dose: 4 unit Documented by: Ondansetron HCl (Zofran) 4 mg IV Q8H PRN PRN Reason: Nausea And Vomiting Sodium Chloride (Sodium Chloride Flush Syringe 10 Ml) 10 ml IV BID [facility] Last Admin: 10/04/18 21:53 Dose: 10 ml Documented by: Sodium Chloride (Sodium Chloride Flush Syringe 10 Ml) 10 ml IV PRN PRN PRN Reason: LINE FLUSH Physical Examination - Physical Exam Narrative exam: Physical Exam: Constitutional: Alert, cooperative. No acute distress. morbidly obese Head, Ears, Nose: Normocephalic, atraumatic. External ears, nose normal Eyes: Conjunctivae/corneas clear. No icterus. No ptosis. Neck: Supple, no meningeal signs Oral: no ulcers, no thrush Cardiovascular: S1, S2 normal. Respiratory: Good air entry, clear to auscultation bilaterally GI: Soft, non-tender; bowel sounds normal. No peritoneal signs. b/l flank tenderness. no suprapubic tenderness Musculoskeletal: No pedal edema, no cyanosis. Skin: No rash or abscess Hem/Lymphatic: No palpable cervical or supraclavicular nodes. No lymphangitis Psych: Mood ok. Affect normal Neurological: Awake, alert, oriented. No gross abnormality - Constitutional Vitals: Vital Signs Temp Pulse Resp BP Pulse Ox 98.4 F 67 20 164/78 96 10/05/18 08:21 10/05/18 08:21 10/05/18 08:21 10/05/18 08:21 10/05/18 08:21 Temperature -Last 24 Hours Temperature 98.4 F Temperature 97.9 F Temperature 97.9 F Temperature 99.8 F Temperature 101.0 F Temperature 99.1 F Temperature 100.6 F Results - Labs CBC & Chem 7: 10/03/18 04:43 10/05/18 04:41 Labs: Abnormal lab results 10/04/18 10/04/18 10/04/18 Range/Units 09:04 14:03 17:13 Sodium (137-145) mmol/L Potassium (3.6-5.0) mmol/L Chloride (98-107) mmol/L BUN (7-17) mg/dL Creatinine (0.7-1.2) mg/dL Glucose (65-100) mg/dL POC Glucose 217 H 260 H 191 H (70-105) 10/04/18 10/05/18 10/05/18 Range/Units 21:35 04:41 08:24 Sodium 135 L (137-145) mmol/L Potassium 3.0 L (3.6-5.0) mmol/L Chloride 94.5 L (98-107) mmol/L BUN 31 H (7-17) mg/dL Creatinine 1.4 H (0.7-1.2) mg/dL Glucose 178 H (65-100) mg/dL POC Glucose 158 H 236 H (70-105) - Imaging and Cardiology Chest x-ray: report reviewed, image reviewed (Chest x-ray does not reveal any pneumonia.) US - abdomen: report reviewed, image reviewed (Renal ultrasound did not show any hydronephrosis. There was some echogenicity of the right renal cortex, mass or lipoma or angiomyolipoma could not be excluded.) Assessment and Plan Cultures: 10/02/2018 urine culture: Mixed harini 10/02/2018 blood culture: Escherichia coli A/P: 63-year-old female with diabetes, COPD on home oxygen and arthritis, now with: 1) Sepsis secondary to Escherichia coli bacteremia from pyelonephritis and urinary tract infection: Improving. Discontinue Zosyn and start IV ceftriaxone. 2) Right renal lesion: Concerning for possible mass versus lipoma versus angiolipoma. This could also represent a renal abscess. Given improvement in kidney function, will obtain a CT abdomen and pelvis with IV contrast to wilian luate for possibility of abscess, if okay with nephrology. 3) Acute kidney injury: Improving. Renally dose antibiotics. 4) Morbid obesity 5) Diabetes mellitus type 2 Recs: D/Gerson Zosyn Started IV Ceftriaxone 2 gm q24 hrs obtain a CT abdomen and pelvis with IV contrast to evaluate for possibility of renal abscess (given ultrasound findings), if okay with nephrology Anticipate discharge on PO abx if CT negative for renal abscess d/w Dr. Gamble. MD Zhen [facility] C: [phone] O: [phone] F: [phone]
--- NOTE | 2018-10-05 10:04 | Progress Note ---
Assessment and Plan Assessment and plan: Sepsis. Etiology secondary to Escherichia coli bacteremia. Escherichia coli bacteremia. ID following. Acute renal failure. Improved. Etiology secondary to sepsis/acute kidney injury. Nephrology following. Renal ultrasound with no hydronephrosis, angiolipoma noted. Pyelonephritis/UTI. ? Right renal lesion that is concerning for possible mass versus lipoma versus angiolipoma. ID believes that this could also represent a renal abscess. Given improvement in kidney function, ID recommended a CT abdomen and pelvis with IV contrast to evaluate for possibility of abscess, if okay with nephrology. Hypokalemia. Replete potassium. Metabolic acidosis. Bicarbonate drip discontinued per nephrology. Diabetes mellitus type 2. Continue Accu-Cheks and sliding scale as. Hypertension. Cont. antihypertensive medications. Disposition. PT recommends subacute rehabilitation. History Interval history: lisa is 63 years old female with history of diabetes, COPD and arthritis. Patient brought to the emergency room via EMS for evaluation of generalized weakness for the last 3 days. Patient found to be febrile with a temperature of 102.3 and tachycardic. The patient was admitted with diagnosis of sepsis and found to have etiology secondary to Escherichia coli bacteremia from probable UTI. Hospitalist Physical - Constitutional Vitals: Temp Pulse Resp BP Pulse Ox 98.4 F 67 20 164/78 96 10/05/18 08:21 10/05/18 08:21 10/05/18 08:21 10/05/18 08:21 10/05/18 08:21 General appearance: Present: no acute distress - EENT Eyes: Present: PERRL, EOM intact ENT: hearing intact, clear oral mucosa, dentition normal - Neck Neck: Present: supple, normal ROM - Respiratory Respiratory effort: normal Respiratory: bilateral: CTA - Cardiovascular Rhythm: regular Heart Sounds: Present: S1 & S2. Absent: gallop, rub - Extremities Extremities: no ischemia, No edema, Full ROM - Abdominal General gastrointestinal: soft, non-tender, non-distended, normal bowel sounds - Integumentary Integumentary: Present: clear, warm, dry - Neurologic Neurologic: CNII-XII intact, moves all extremities Results - Labs CBC & Chem 7: 10/03/18 04:43 10/05/18 04:41 Labs: Laboratory Last Values WBC 11.8 K/mm3 (4.5-11.0) H 10/03/18 04:43 RBC 4.59 M/mm3 (3.65-5.03) 10/03/18 04:43 Hgb 12.9 gm/dl (10.1-14.3) 10/03/18 04:43 Hct 37.0 % (30.3-42.9) 10/03/18 04:43 MCV 81 fl (79-97) 10/03/18 04:43 MCH 28 pg (28-32) 10/03/18 04:43 MCHC 35 % (30-34) H 10/03/18 04:43 RDW 16.5 % (13.2-15.2) H 10/03/18 04:43 Plt Count 177 K/mm3 (140-440) 10/03/18 04:43 Add Manual Diff Complete 10/03/18 04:43 Total Counted 100 10/03/18 04:43 Seg Neutrophils % [employer] 10/02/18 04:17 Seg Neuts % (Manual) 87.0 % (40.0-70.0) H 10/03/18 04:43 0 % 10/03/18 04:43 6.0 % (13.4-35.0) L 10/03/18 04:43 Reactive Lymphs % (Man) 1.0 % 10/03/18 04:43 6.0 % (0.0-7.3) 10/03/18 04:43 0 % (0.0-4.3) 10/03/18 04:43 0 % (0.0-1.8) 10/03/18 04:43 0 % 10/03/18 04:43 0 % 10/03/18 04:43 0 % 10/03/18 04:43 0 % 10/03/18 04:43 Nucleated RBC % Not Reportable 10/03/18 04:43 Seg Neutrophils # Man 10.3 K/mm3 (1.8-7.7) H 10/03/18 04:43 Band Neutrophils # 0.0 K/mm3 10/03/18 04:43 0.7 K/mm3 (1.2-5.4) L 10/03/18 04:43 Abs React Lymphs (Man) 0.1 K/mm3 10/03/18 04:43 0.7 K/mm3 (0.0-0.8) 10/03/18 04:43 0.0 K/mm3 (0.0-0.4) 10/03/18 04:43 0.0 K/mm3 (0.0-0.1) 10/03/18 04:43 0.0 K/mm3 10/03/18 04:43 0.0 K/mm3 10/03/18 04:43 0.0 K/mm3 10/03/18 04:43 Blast Cells # 0.0 K/mm3 10/03/18 04:43 WBC Morphology Not Reportable 10/03/18 04:43 Hypersegmented Neuts Not Reportable 10/03/18 04:43 Hyposegmented Neuts Not Reportable 10/03/18 04:43 Hypogranular Neuts Not Reportable 10/03/18 04:43 Not Reportable 10/03/18 04:43 Not Reportable 10/03/18 04:43 Not Reportable 10/03/18 04:43 Not Reportable 10/03/18 04:43 Not Reportable 10/03/18 04:43 Not Reportable 10/03/18 04:43 Consistent w auto 10/03/18 04:43 Not Reportable 10/03/18 04:43 Plt Clumps, EDTA Not Reportable 10/03/18 04:43 Few 10/03/18 04:43 Not Reportable 10/03/18 04:43 Not Reportable 10/03/18 04:43 Plt Morphology Comment Not Reportable 10/03/18 04:43 RBC Morphology Not Reportable 10/03/18 04:43 Dimorphic RBCs Not Reportable 10/03/18 04:43 Not Reportable 10/03/18 04:43 Not Reportable 10/03/18 04:43 1+ 10/03/18 04:43 1+ 10/03/18 04:43 Not Reportable 10/03/18 04:43 Not Reportable 10/03/18 04:43 Not Reportable 10/03/18 04:43 Not Reportable 10/03/18 04:43 Not Reportable 10/03/18 04:43 1+ 10/03/18 04:43 Not Reportable 10/03/18 04:43 Not Reportable 10/03/18 04:43 Not Reportable 10/03/18 04:43 Not Reportable 10/03/18 04:43 Not Reportable 10/03/18 04:43 Not Reportable 10/03/18 04:43 Not Reportable 10/03/18 04:43 Not Reportable 10/03/18 04:43 Not Reportable 10/03/18 04:43 Acanthocytes (Spur) Not Reportable 10/03/18 04:43 Rouleaux Not Reportable 10/03/18 04:43 Not Reportable 10/03/18 04:43 Not Reportable 10/03/18 04:43 Not Reportable 10/03/18 04:43 Not Reportable 10/03/18 04:43 Hem Pathologist Commnt No 10/03/18 04:43 PT 14.4 Sec. (12.2-14.9) 10/02/18 04:36 INR 1.05 (0.87-1.13) 10/02/18 04:36 VBG pH 7.304 (7.320-7.420) L 10/02/18 04:36 Sodium 135 mmol/L (137-145) L 10/05/18 04:41 Potassium 3.0 mmol/L (3.6-5.0) L 10/05/18 04:41 Chloride 94.5 mmol/L (98-107) L 10/05/18 04:41 Carbon Dioxide 27 mmol/L (22-30) 10/05/18 04:41 17 mmol/L 10/05/18 04:41 BUN 31 mg/dL (7-17) H 10/05/18 04:41 1.4 mg/dL (0.7-1.2) H 10/05/18 04:41 Estimated GFR 46 ml/min 10/05/18 04:41 22 % 10/05/18 04:41 Glucose 178 mg/dL (65-100) H 10/05/18 04:41 POC Glucose 236 (70-105) H 10/05/18 08:24 Lactic Acid 1.90 mmol/L (0.7-2.0) 10/02/18 07:33 Calcium 8.6 mg/dL (8.4-10.2) 10/05/18 04:41 Magnesium 2.10 mg/dL (1.7-2.3) 10/05/18 04:41 0.70 mg/dL (0.1-1.2) 10/02/18 04:17 AST 58 units/L (5-40) H 10/02/18 04:17 ALT 26 units/L (7-56) 10/02/18 04:17 146 units/L (35-129) H 10/02/18 04:17 NT-Pro-B Natriuret Pep 1081 pg/mL (0-900) H 10/02/18 04:17 8.6 g/dL (6.3-8.2) H 10/02/18 04:17 2.9 g/dL (3.9-5) L 10/02/18 04:17 0.5 % 10/02/18 04:17 Teresa (Yellow) 10/02/18 04:44 Turbid (Clear) 10/02/18 04:44 5.0 (5.0-7.0) 10/02/18 04:44 Ur Specific [place] 1.015 (1.003-1.030) 10/02/18 04:44 >500 mg/dL (Negative) 10/02/18 04:44 >=500 mg/dL (Negative) 10/02/18 04:44 20 mg/dL (Negative) 10/02/18 04:44 Lg (Negative) 10/02/18 04:44 Neg (Negative) 10/02/18 04:44 Neg (Negative) 10/02/18 04:44 < 2.0 mg/dL (<2.0) 10/02/18 04:44 Ur Leukocyte Esterase Lg (Negative) 10/02/18 04:44 > 182.0 /HPF (0.0-6.0) H 10/02/18 04:44 66.0 /HPF (0.0-6.0) 10/02/18 04:44 U Epithel Cells (Auto) 2.0 /HPF (0-13.0) 10/02/18 04:44 3+ /HPF (Negative) 10/02/18 04:44 3+ /HPF 10/02/18 04:44 2+ /HPF 10/02/18 04:44 108.0 mg/dL (0.1-20.0) H 10/02/18 06:43 Protein/Creatinin Ratio 2.27 10/02/18 06:43 32 mmol/L 10/02/18 06:43 245 mg/dL (5-11.8) H 10/02/18 06:43 Active Medications - Current Medications Current Medications: Generic Name Dose Route Start Last Admin Trade Name Freq PRN Reason Stop Dose Admin Acetaminophen 650 mg 10/02/18 05:42 10/04/18 21:53 Tylenol PO 650 mg Q4H PRN Administration Pain MILD(1-3)/Fever >100.5/MUHAMMAD Albuterol 2.5 mg 10/02/18 05:42 Proventil IH Q3HRT PRN Shortness Of Breath Dextrose 50 ml 10/02/18 06:04 D50w (25gm) Syringe IV PRN PRN Hypoglycemia Famotidine 20 mg 10/03/18 10:00 10/04/18 21:53 Pepcid PO 20 mg BID KATHY Administration Heparin Sodium (Porcine) 5,000 unit 10/02/18 10:00 10/04/18 21:53 Heparin SUB-Q 5,000 unit Q12HR KATHY Administration Hydralazine HCl 10 mg 10/03/18 20:33 Apresoline PO Q4H PRN Blood Pressure Potassium Chloride/Sodium Chloride 20 meq in 1,000 mls @ 75 mls/hr 10/04/18 11:00 10/05/18 05:21 Ns 0.45/Kcl 20meq IV 75 mls/hr DIRECT KATHY Administration Ceftriaxone Sodium 2 gm in 100 mls @ 200 mls/hr 10/05/18 10:00 Rocephin/Ns 2 Gm/100 Ml IV Q24HR KATHY Protocol Insulin Glargine 10 units 10/03/18 22:00 10/04/18 21:54 Lantus SUB-Q 10 units QHS KATHY Administration Insulin Human Lispro 0 unit 10/02/18 07:30 10/05/18 08:56 Humalog SUB-Q 4 unit ACHS KATHY Administration Protocol Ondansetron HCl 4 mg 10/02/18 05:42 Zofran IV Q8H PRN Nausea And Vomiting Sodium Chloride 10 ml 10/02/18 10:00 10/04/18 21:53 Sodium Chloride Flush Syringe 10 Ml IV 10 ml BID KATHY Administration Sodium Chloride 10 ml 10/02/18 05:42 Sodium Chloride Flush Syringe 10 Ml IV PRN PRN LINE FLUSH Nutrition/Malnutrition Assess - Dietary Evaluation Nutrition/Malnutrition Findings: Nutrition Notes Start: 10/02/18 15:44 Freq: Status: Active Protocol: Document 10/04/18 17:20 RM (Rec: 10/04/18 17:29 RM [email or web address]) Nutrition Notes Initial or Follow up Assessment Current Diagnosis Acute Kidney Injury,Diabetes, Hypertension,Hyperlipidemia Other Pertinent Diagnosis Urosepsis, Generalized weakness, Dehydration Current Diet Renal/Cardiac Labs/Tests Reviewed Pertinent Medications Reviewed Height 5 ft 8 in Weight 169.8 kg [place] Body Weight (kg) 63.63 BMI 56.9 Weight change and time frame Current wt obtained from [facility] Subjective/Other Information Pt lethargic and sleepy at time of visit. Pt stated that her appetite is improving but she is not eating her meals d/ t not having adhesive for her top dentures. Pt not appropriate for education at this time. Percent of energy/protein needs met: 0%/0% #1 Nutrition Diagnosis Inadequate oral intake Etiology chewing difficulty As Evidenced by Signs and Symptoms pt statement that she is not eating her meals Is patient on ventilator? No Is Patient Ambulatory and/or Out of Bed No REE-([place]-confined to bed) 2771.712 Kcal/Kg value to use for calculation 11 Approximate Energy Requirements Using 1868 kcal/Kg Calculation Used for Recommendations Kcal/kg Additional Notes Pro needs: 117-152g (1-1.3g/kg 117 kg adjBW ) Fluid needs per MD Nutrition Intervention Change Diet Order: Renal,Cardic, Mech soft w/ ground meat Goal #1 Meet at least 75% of calorie and protein needs via PO intakes Follow-Up By: 10/08/18 Additional Comments Follow for DM diet education, PO intakes
[2018-10-05] MEDS: SODIUM CHLORIDE FLUSH SYRINGE 10 ML IV SCH ×2 (10:27→22:26)
[2018-10-05] MEDS: PEPCID PO SCH ×2 (10:27→22:25)
[2018-10-05] MEDS: HEPARIN SUB-Q SCH ×2 (10:27→22:25)
--- NOTE | 2018-10-05 11:05 | Progress Note ---
Assessment and Plan Impression: * SAMMI * pyelonephritis * bactermia * sepsis * hyperkalemia--resolved * metabolic acidosis * hyponatremia * hypokalemia * type 2 DM * HTN Plan: * stop bicarb gtt, and ivfs * k is lower, add po kdur * cr is improved * renal us with pvr noted, angiolipoma noted, no PVR * iv abx for pyelonephritis/bacteremia * follow up k level, s/p kayexalate * daily lytes * strict i/os Subjective Date of service: 10/05/18 Principal diagnosis: sammi Interval history: resting in bed today Objective - Exam Narrative Exam: - General Limitations: No Limitations General appearance: alert, in no apparent distress - Head Head exam: Present: atraumatic, normocephalic, normal inspection - ENT ENT exam: Present: mucous membranes dry - Neck Neck exam: Present: normal inspection, full ROM. Absent: tenderness, meningismus, lymphadenopathy, thyromegaly - Respiratory Respiratory exam: Present: normal lung sounds bilaterally - Cardiovascular Cardiovascular Exam: Present: regular rate, normal rhythm, normal heart sounds - GI/Abdominal GI/Abdominal exam: Present: soft, normal bowel sounds. Absent: distended, tenderness, guarding, rebound, rigid, organomegaly, mass, bruit, pulsatile mass, hernia - Extremities Exam Extremities exam: Present: normal inspection, full ROM, normal capillary refill. Absent: pedal edema, calf tenderness - Back Exam Back exam: Present: normal inspection, full ROM. Absent: tenderness, CVA tenderness (R), CVA tenderness (L), muscle spasm, paraspinal tenderness, vertebral tenderness - Neurological Exam Neurological exam: Present: alert, oriented X3, CN II-XII intact, normal gait, reflexes normal - Skin Skin exam: Present: warm, intact, normal color - Vital Signs Vital signs: Vital Signs - 12hr 10/04/18 10/05/18 10/05/18 23:46 04:00 08:21 Temperature 97.9 F 97.9 F 98.4 F Pulse Rate 64 64 67 Respiratory 18 18 20 Rate Blood Pressure 146/70 164/78 Blood Pressure 146/70 [Left] O2 Sat by Pulse 100 100 96 Oximetry - Lab 10/03/18 04:43 10/05/18 04:41 Most recent lab results Calcium 8.6 mg/dL (8.4-10.2) 10/05/18 04:41 Magnesium 2.10 mg/dL (1.7-2.3) 10/05/18 04:41 108.0 mg/dL (0.1-20.0) H 10/02/18 06:43 32 mmol/L 10/02/18 06:43 245 mg/dL (5-11.8) H 10/02/18 06:43 Medications & Allergies - Medications Allergies/Adverse Reactions: Allergies No Known Allergies Allergy (Verified 10/02/18 04:22) Home Medications: Home Medications Medication Instructions Recorded Confirmed Last Taken Type AtorvaSTATin [Lipitor] 20 mg PO QHS 10/03/18 10/03/18 10/01/18 History Gabapentin [Neurontin] 100 mg PO Q8HR 10/03/18 10/03/18 10/01/18 History Glimepiride [Amaryl] 4 mg PO QAM 10/03/18 10/03/18 10/01/18 History Metformin HCl [metFORMIN] 1,000 mg PO BIDAC 10/03/18 10/03/18 10/01/18 History Omeprazole 40 mg PO QAM 10/03/18 10/03/18 10/01/18 History amLODIPine [Norvasc] 10 mg PO DAILY 10/03/18 10/03/18 10/01/18 History Active Medications: Generic Name Dose Route Start Last Admin Trade Name Freq PRN Reason Stop Dose Admin Acetaminophen 650 mg 10/02/18 05:42 10/04/18 21:53 Tylenol PO 650 mg Q4H PRN Administration Pain MILD(1-3)/Fever >100.5/[place]AM[place] Albuterol 2.5 mg 10/02/18 05:42 Proventil IH Q3HRT PRN Shortness Of Breath Dextrose 50 ml 10/02/18 06:04 D50w (25gm) Syringe IV PRN PRN Hypoglycemia Famotidine 20 mg 10/03/18 10:00 10/05/18 10:27 Pepcid PO 20 mg BID KATHY Administration Heparin Sodium (Porcine) 5,000 unit 10/02/18 10:00 10/05/18 10:27 Heparin SUB-Q 5,000 unit Q12HR KATHY Administration Hydralazine HCl 10 mg 10/03/18 20:33 Apresoline PO Q4H PRN Blood Pressure Ceftriaxone Sodium 2 gm in 100 mls @ 200 mls/hr 10/05/18 11:00 Rocephin/Ns 2 Gm/100 Ml IV Q24HR KATHY Protocol Insulin Glargine 15 units 10/05/18 22:00 Lantus SUB-Q QHS KATHY Insulin Human Lispro 0 unit 10/02/18 07:30 10/05/18 08:56 Humalog SUB-Q 4 unit ACHS KATHY Administration Protocol Ondansetron HCl 4 mg 10/02/18 05:42 Zofran IV Q8H PRN Nausea And Vomiting Potassium Chloride 40 meq 10/05/18 12:00 K-Dur PO QDAY KATHY Sodium Chloride 10 ml 10/02/18 10:00 10/05/18 10:27 Sodium Chloride Flush Syringe 10 Ml IV 10 ml BID KATHY Administration Sodium Chloride 10 ml 10/02/18 05:42 Sodium Chloride Flush Syringe 10 Ml IV PRN PRN LINE FLUSH
[2018-10-05] MEDS: ROCEPHIN/NS 2 GM/100 ML 2 GM/100 ML BAG IV SCH (12:12)
[2018-10-05] MEDS: K-DUR PO SCH (12:12)
[2018-10-05] MEDS: APRESOLINE PO PRN (18:38)
[2018-10-05] MEDS: LANTUS SUB-Q SCH (22:46)
[2018-10-06 06:37] LABS: Calcium 8.8 mg/dL (8.4-10.2)
[2018-10-06] MEDS: HumaLOG SUB-Q SCH ×4 (08:47→21:55)
[2018-10-06] MEDS: K-DUR PO SCH (09:47)
[2018-10-06] MEDS: PEPCID PO SCH ×2 (09:47→21:54)
[2018-10-06] MEDS: ROCEPHIN/NS 2 GM/100 ML 2 GM/100 ML BAG IV SCH (09:47)
[2018-10-06] MEDS: APRESOLINE PO PRN ×2 (09:48→19:00)
[2018-10-06] MEDS: SODIUM CHLORIDE FLUSH SYRINGE 10 ML IV SCH ×2 (09:50→21:55)
[2018-10-06] MEDS: HEPARIN SUB-Q SCH ×2 (09:51→21:55)
--- NOTE | 2018-10-06 10:45 | Progress Note ---
Assessment and Plan Assessment and plan: Sepsis. Etiology secondary to Escherichia coli bacteremia. Escherichia coli bacteremia. ID following. Acute renal failure. Improved. Etiology secondary to sepsis/acute kidney injury. Nephrology following. Renal ultrasound with no hydronephrosis, angiolipoma noted. Pyelonephritis/UTI. ? Right renal lesion that is concerning for possible mass versus lipoma versus angiolipoma. ID believes that this could also represent a renal abscess. Given improvement in kidney function, ID recommended a CT abdomen and pelvis with IV contrast to evaluate for possibility of abscess, if okay with nephrology. Hypokalemia. Replete potassium. Metabolic acidosis. Bicarbonate drip discontinued per nephrology. Diabetes mellitus type 2. Continue Accu-Cheks and sliding scale as. Hypertension. Cont. antihypertensive medications. Disposition. PT recommends subacute rehabilitation. History Interval history: lisa is 63 years old female with history of diabetes, COPD and arthritis. Patient brought to the emergency room via EMS for evaluation of generalized weakness for the last 3 days. Patient found to be febrile with a temperature of 102.3 and tachycardic. The patient was admitted with diagnosis of sepsis and found to have etiology secondary to Escherichia coli bacteremia from probable UTI. Hospitalist Physical - Constitutional Vitals: Temp Pulse Resp BP Pulse Ox 98.9 F 76 22 196/80 97 10/06/18 08:32 10/06/18 09:48 10/06/18 08:32 10/06/18 09:48 10/06/18 08:32 General appearance: Present: no acute distress - EENT Eyes: Present: PERRL, EOM intact ENT: hearing intact, clear oral mucosa, dentition normal - Neck Neck: Present: supple, normal ROM - Respiratory Respiratory effort: normal Respiratory: bilateral: CTA - Cardiovascular Rhythm: regular Heart Sounds: Present: S1 & S2. Absent: gallop, rub - Extremities Extremities: no ischemia, No edema, Full ROM - Abdominal General gastrointestinal: soft, non-tender, non-distended, normal bowel sounds - Integumentary Integumentary: Present: clear, warm, dry - Neurologic Neurologic: CNII-XII intact, moves all extremities Results - Labs CBC & Chem 7: 10/03/18 04:43 10/06/18 05:06 Labs: Laboratory Last Values WBC 11.8 K/mm3 (4.5-11.0) H 10/03/18 04:43 RBC 4.59 M/mm3 (3.65-5.03) 10/03/18 04:43 Hgb 12.9 gm/dl (10.1-14.3) 10/03/18 04:43 Hct 37.0 % (30.3-42.9) 10/03/18 04:43 MCV 81 fl (79-97) 10/03/18 04:43 MCH 28 pg (28-32) 10/03/18 04:43 MCHC 35 % (30-34) H 10/03/18 04:43 RDW 16.5 % (13.2-15.2) H 10/03/18 04:43 Plt Count 177 K/mm3 (140-440) 10/03/18 04:43 Add Manual Diff Complete 10/03/18 04:43 Total Counted 100 10/03/18 04:43 Seg Neutrophils % Equipment Driver 10/02/18 04:17 Seg Neuts % (Manual) 87.0 % (40.0-70.0) H 10/03/18 04:43 0 % 10/03/18 04:43 6.0 % (13.4-35.0) L 10/03/18 04:43 Reactive Lymphs % (Man) 1.0 % 10/03/18 04:43 6.0 % (0.0-7.3) 10/03/18 04:43 0 % (0.0-4.3) 10/03/18 04:43 0 % (0.0-1.8) 10/03/18 04:43 0 % 10/03/18 04:43 0 % 10/03/18 04:43 0 % 10/03/18 04:43 0 % 10/03/18 04:43 Nucleated RBC % Not Reportable 10/03/18 04:43 Seg Neutrophils # Man 10.3 K/mm3 (1.8-7.7) H 10/03/18 04:43 Band Neutrophils # 0.0 K/mm3 10/03/18 04:43 0.7 K/mm3 (1.2-5.4) L 10/03/18 04:43 Abs React Lymphs (Man) 0.1 K/mm3 10/03/18 04:43 0.7 K/mm3 (0.0-0.8) 10/03/18 04:43 0.0 K/mm3 (0.0-0.4) 10/03/18 04:43 0.0 K/mm3 (0.0-0.1) 10/03/18 04:43 0.0 K/mm3 10/03/18 04:43 0.0 K/mm3 10/03/18 04:43 0.0 K/mm3 10/03/18 04:43 Blast Cells # 0.0 K/mm3 10/03/18 04:43 WBC Morphology Not Reportable 10/03/18 04:43 Hypersegmented Neuts Not Reportable 10/03/18 04:43 Hyposegmented Neuts Not Reportable 10/03/18 04:43 Hypogranular Neuts Not Reportable 10/03/18 04:43 Not Reportable 10/03/18 04:43 Not Reportable 10/03/18 04:43 Not Reportable 10/03/18 04:43 Not Reportable 10/03/18 04:43 Not Reportable 10/03/18 04:43 Not Reportable 10/03/18 04:43 Consistent w auto 10/03/18 04:43 Not Reportable 10/03/18 04:43 Plt Clumps, EDTA Not Reportable 10/03/18 04:43 Few 10/03/18 04:43 Not Reportable 10/03/18 04:43 Not Reportable 10/03/18 04:43 Plt Morphology Comment Not Reportable 10/03/18 04:43 RBC Morphology Not Reportable 10/03/18 04:43 Dimorphic RBCs Not Reportable 10/03/18 04:43 Not Reportable 10/03/18 04:43 Not Reportable 10/03/18 04:43 1+ 10/03/18 04:43 1+ 10/03/18 04:43 Not Reportable 10/03/18 04:43 Not Reportable 10/03/18 04:43 Not Reportable 10/03/18 04:43 Not Reportable 10/03/18 04:43 Not Reportable 10/03/18 04:43 1+ 10/03/18 04:43 Not Reportable 10/03/18 04:43 Not Reportable 10/03/18 04:43 Not Reportable 10/03/18 04:43 Not Reportable 10/03/18 04:43 Not Reportable 10/03/18 04:43 Not Reportable 10/03/18 04:43 Not Reportable 10/03/18 04:43 Not Reportable 10/03/18 04:43 Not Reportable 10/03/18 04:43 Acanthocytes (Spur) Not Reportable 10/03/18 04:43 Rouleaux Not Reportable 10/03/18 04:43 Not Reportable 10/03/18 04:43 Not Reportable 10/03/18 04:43 Not Reportable 10/03/18 04:43 Not Reportable 10/03/18 04:43 Hem Pathologist Commnt No 10/03/18 04:43 PT 14.4 Sec. (12.2-14.9) 10/02/18 04:36 INR 1.05 (0.87-1.13) 10/02/18 04:36 VBG pH 7.304 (7.320-7.420) L 10/02/18 04:36 Sodium 140 mmol/L (137-145) 10/06/18 05:06 Potassium 3.0 mmol/L (3.6-5.0) L 10/06/18 05:06 Chloride 96.9 mmol/L (98-107) L 10/06/18 05:06 Carbon Dioxide 31 mmol/L (22-30) H 10/06/18 05:06 15 mmol/L 10/06/18 05:06 BUN 23 mg/dL (7-17) H 10/06/18 05:06 1.3 mg/dL (0.7-1.2) H 10/06/18 05:06 Estimated GFR 50 ml/min 10/06/18 05:06 18 % 10/06/18 05:06 Glucose 164 mg/dL (65-100) H 10/06/18 05:06 POC Glucose 187 (70-105) H 10/06/18 08:39 Lactic Acid 1.90 mmol/L (0.7-2.0) 10/02/18 07:33 Calcium 8.8 mg/dL (8.4-10.2) 10/06/18 05:06 Magnesium 2.10 mg/dL (1.7-2.3) 10/05/18 04:41 0.70 mg/dL (0.1-1.2) 10/02/18 04:17 AST 58 units/L (5-40) H 10/02/18 04:17 ALT 26 units/L (7-56) 10/02/18 04:17 146 units/L (35-129) H 10/02/18 04:17 NT-Pro-B Natriuret Pep 1081 pg/mL (0-900) H 10/02/18 04:17 8.6 g/dL (6.3-8.2) H 10/02/18 04:17 2.9 g/dL (3.9-5) L 10/02/18 04:17 0.5 % 10/02/18 04:17 Teresa (Yellow) 10/02/18 04:44 Turbid (Clear) 10/02/18 04:44 5.0 (5.0-7.0) 10/02/18 04:44 Ur Specific [place] 1.015 (1.003-1.030) 10/02/18 04:44 >500 mg/dL (Negative) 10/02/18 04:44 >=500 mg/dL (Negative) 10/02/18 04:44 20 mg/dL (Negative) 10/02/18 04:44 Lg (Negative) 10/02/18 04:44 Neg (Negative) 10/02/18 04:44 Neg (Negative) 10/02/18 04:44 < 2.0 mg/dL (<2.0) 10/02/18 04:44 Ur Leukocyte Esterase Lg (Negative) 10/02/18 04:44 > 182.0 /HPF (0.0-6.0) H 10/02/18 04:44 66.0 /HPF (0.0-6.0) 10/02/18 04:44 U Epithel Cells (Auto) 2.0 /HPF (0-13.0) 10/02/18 04:44 3+ /HPF (Negative) 10/02/18 04:44 3+ /HPF 10/02/18 04:44 2+ /HPF 10/02/18 04:44 108.0 mg/dL (0.1-20.0) H 10/02/18 06:43 Protein/Creatinin Ratio 2.27 10/02/18 06:43 32 mmol/L 10/02/18 06:43 245 mg/dL (5-11.8) H 10/02/18 06:43 Active Medications - Current Medications Current Medications: Generic Name Dose Route Start Last Admin Trade Name Rosanna PRN Reason Stop Dose Admin Acetaminophen 650 mg 10/02/18 05:42 10/04/18 21:53 Tylenol PO 650 mg Q4H PRN Administration Pain MILD(1-3)/Fever >100.5/MUHAMMAD Albuterol 2.5 mg 10/02/18 05:42 Proventil IH Q3HRT PRN Shortness Of Breath Dextrose 50 ml 10/02/18 06:04 D50w (25gm) Syringe IV PRN PRN Hypoglycemia Famotidine 20 mg 10/03/18 10:00 10/06/18 09:47 Pepcid PO 20 mg BID KATHY Administration Heparin Sodium (Porcine) 5,000 unit 10/02/18 10:00 10/06/18 09:51 Heparin SUB-Q 5,000 unit Q12HR KATHY Administration Hydralazine HCl 10 mg 10/03/18 20:33 10/06/18 09:48 Apresoline PO 10 mg Q4H PRN Administration Blood Pressure Ceftriaxone Sodium 2 gm in 100 mls @ 200 mls/hr 10/05/18 11:00 10/06/18 09:47 Rocephin/Ns 2 Gm/100 Ml IV 200 mls/hr Q24HR KATHY Administration Protocol Insulin Glargine 15 units 10/05/18 22:00 10/05/18 22:46 Lantus SUB-Q 15 units QHS KATHY Administration Insulin Human Lispro 0 unit 10/02/18 07:30 10/06/18 08:47 Humalog SUB-Q 3 unit ACHS KATHY Administration Protocol Ondansetron HCl 4 mg 10/02/18 05:42 Zofran IV Q8H PRN Nausea And Vomiting Potassium Chloride 40 meq 10/05/18 12:00 10/06/18 09:47 K-Dur PO 40 meq QDAY KATHY Administration Sodium Chloride 10 ml 10/02/18 10:00 10/06/18 09:50 Sodium Chloride Flush Syringe 10 Ml IV 10 ml BID KATHY Administration Sodium Chloride 10 ml 10/02/18 05:42 Sodium Chloride Flush Syringe 10 Ml IV PRN PRN LINE FLUSH Nutrition/Malnutrition Assess - Dietary Evaluation Nutrition/Malnutrition Findings: Nutrition Notes Start: 10/02/18 15 :44 Freq: Status: Active Protocol: Document 10/04/18 17:20 RM (Rec: 10/04/18 17:29 RM [id number]) Nutrition Notes Initial or Follow up Assessment Current Diagnosis Acute Kidney Injury,Diabetes, Hypertension,Hyperlipidemia Other Pertinent Diagnosis Urosepsis, Generalized weakness, Dehydration Current Diet Renal/Cardiac Labs/Tests Reviewed Pertinent Medications Reviewed Height 5 ft 8 in Weight 169.8 kg [place] Body Weight (kg) 63.63 BMI 56.9 Weight change and time frame Current wt obtained from [facility] Subjective/Other Information Pt lethargic and sleepy at time of visit. Pt stated that her appetite is improving but she is not eating her meals d/ t not having adhesive for her top dentures. Pt not appropriate for education at this time. Percent of energy/protein needs met: 0%/0% #1 Nutrition Diagnosis Inadequate oral intake Etiology chewing difficulty As Evidenced by Signs and Symptoms pt statement that she is not eating her meals Is patient on ventilator? No Is Patient Ambulatory and/or Out of Bed No REE-([facility]-confined to bed) 2771.712 Kcal/Kg value to use for calculation 11 Approximate Energy Requirements Using 1868 kcal/Kg Calculation Used for Recommendations Kcal/kg Additional Notes Pro needs: 117-152g (1-1.3g/kg 117 kg adjBW ) Fluid needs per MD Nutrition Intervention Change Diet Order: Renal,Cardic, Mech soft w/ ground meat Goal #1 Meet at least 75% of calorie and protein needs via PO intakes Follow-Up By: 10/09/18 Additional Comments Follow for DM diet education, PO intakes
--- NOTE | 2018-10-06 15:29 | Progress Note ---
Assessment and Plan - Patient Problems (1) UTI (urinary tract infection) Current Visit: Yes Status: Acute Plan to address problem: Urinary tract infection continue antibiotics (2) Acute renal failure Current Visit: Yes Status: Acute Plan to address problem: Acute renal failure resolving creatinine improved to 1.3 Secondary to volume depletion and infection Currently off intravenous fluids (3) Hypokalemia Current Visit: Yes Status: Acute Plan to address problem: Hypokalemia Continue replace potassium and check magnesium levels (4) Metabolic alkalosis Current Visit: Yes Status: Acute Plan to address problem: Metabolic alkalosis Monitor Subjective Principal diagnosis: jose Interval history: 63-year-old lady with medical history significant for hypertension admitted with sepsis concerning for pyelonephritis nephritis and acute kidney injury patient since. Patient seen today reports swelling is about the same denies any shortness of breath currently off intravenous fluids Objective - Vital Signs Vital signs: Vital Signs - 12hr 10/06/18 10/06/18 10/06/18 05:15 08:32 09:48 Temperature 98.2 F 98.9 F Pulse Rate 76 80 76 Pulse Rate [ Apical] Pulse Rate [ Left Posterior Tibial] Pulse Rate [ Left Radial] Pulse Rate [ Right Posterior Tibial] Pulse Rate [ Right Radial] Respiratory 22 22 Rate Blood Pressure 196/80 197/92 196/80 O2 Sat by Pulse 100 97 Oximetry 10/06/18 10/06/18 10:00 11:38 Temperature 98.7 F Pulse Rate 75 76 Pulse Rate [ 76 Apical] Pulse Rate [ 76 Left Posterior Tibial] Pulse Rate [ 76 Left Radial] Pulse Rate [ 76 Right Posterior Tibial] Pulse Rate [ 76 Right Radial] Respiratory 19 20 Rate Blood Pressure 166/82 O2 Sat by Pulse 98 100 Oximetry - General Appearance General appearance: well-developed, well-nourished EENT: ATNC, PERRL, mucous membranes moist Neck: no JVD Respiratory: Present: Clear to Ascultation Cardiology: regular, S1S2 Gastrointestinal: normal, normoactive bowel sounds Neurologic: no focal deficit, alert and oriented x3, CN 3-12 intact Psychiatric: mood/affect appropriate - Lab 10/03/18 04:43 10/06/18 05:06 Most recent lab results Calcium 8.8 mg/dL (8.4-10.2) 10/06/18 05:06 Magnesium 2.10 mg/dL (1.7-2.3) 10/05/18 04:41 108.0 mg/dL (0.1-20.0) H 10/02/18 06:43 32 mmol/L 10/02/18 06:43 245 mg/dL (5-11.8) H 10/02/18 06:43 - Imaging Chest x-ray: image reviewed (review chest x-ray without [place] edema) Kidney/bladder ultrasound: image reviewed (I reviewed renal ultrasound. Angiomyolipoma) Medications & Allergies - Medications Allergies/Adverse Reactions: Allergies No Known Allergies Allergy (Verified 10/02/18 04:22) Home Medications: Home Medications Medication Instructions Recorded Confirmed Last Taken Type AtorvaSTATin [Lipitor] 20 mg PO QHS 10/03/18 10/03/18 10/01/18 History Gabapentin [Neurontin] 100 mg PO Q8HR 10/03/18 10/03/18 10/01/18 History Glimepiride [Amaryl] 4 mg PO QAM 10/03/18 10/03/18 10/01/18 History Metformin HCl [metFORMIN] 1,000 mg PO BIDAC 10/03/18 10/03/18 10/01/18 History Omeprazole 40 mg PO QAM 10/03/18 10/03/18 10/01/18 History amLODIPine [Norvasc] 10 mg PO DAILY 10/03/18 10/03/18 10/01/18 History Active Medications: Generic Name Dose Route Start Last Admin Trade Name Freq PRN Reason Stop Dose Admin Acetaminophen 650 mg 10/02/18 05:42 10/04/18 21:53 Tylenol PO 650 mg Q4H PRN Administration Pain MILD(1-3)/Fever >100.5/[place]UHAMMAD Albuterol 2.5 mg 10/02/18 05:42 Proventil IH Q3HRT PRN Shortness Of Breath Dextrose 50 ml 10/02/18 06:04 D50w (25gm) Syringe IV PRN PRN Hypoglycemia Famotidine 20 mg 10/03/18 10:00 10/06/18 09:47 Pepcid PO 20 mg BID KATHY Administration Heparin Sodium (Porcine) 5,000 unit 10/02/18 10:00 10/06/18 09:51 Heparin SUB-Q 5,000 unit Q12HR KATHY Administration Hydralazine HCl 10 mg 10/03/18 20:33 10/06/18 09:48 Apresoline PO 10 mg Q4H PRN Administration Blood Pressure Ceftriaxone Sodium 2 gm in 100 mls @ 200 mls/hr 10/05/18 11:00 10/06/18 09:47 Rocephin/Ns 2 Gm/100 Ml IV 200 mls/hr Q24HR KATHY Administration Protocol Insulin Glargine 15 units 10/05/18 22:00 10/05/18 22:46 Lantus SUB-Q 15 units QHS KATHY Administration Insulin Human Lispro 0 unit 10/02/18 07:30 10/06/18 12:27 Humalog SUB-Q 6 unit ACHS KATHY Administration Protocol Ondansetron HCl 4 mg 10/02/18 05:42 Zofran IV Q8H PRN Nausea And Vomiting Potassium Chloride 40 meq 10/05/18 12:00 10/06/18 09:47 K-Dur PO 40 meq QDAY KATHY Administration Sodium Chloride 10 ml 10/02/18 10:00 10/06/18 09:50 Sodium Chloride Flush Syringe 10 Ml IV 10 ml BID KATHY Administration Sodium Chloride 10 ml 10/02/18 05:42 Sodium Chloride Flush Syringe 10 Ml IV PRN PRN LINE FLUSH
[2018-10-06] MEDS ORDERED: K-DUR PO ONE (16:00)
[2018-10-06] MEDS: LANTUS SUB-Q SCH (21:55)
[2018-10-07] MEDS: APRESOLINE PO PRN (04:24)
[2018-10-07 06:28] LABS: BUN/Creatinine Ratio 19; Blood Urea Nitrogen 17 mg/dL (7-17); Calcium 8.7 mg/dL (8.4-10.2); Hemolysis Index 118
[2018-10-07] MEDS: HumaLOG SUB-Q SCH ×4 (09:05→22:26)
[2018-10-07] MEDS: SODIUM CHLORIDE FLUSH SYRINGE 10 ML IV SCH ×2 (09:07→22:26)
[2018-10-07] MEDS: PEPCID PO SCH ×2 (10:04→22:26)
[2018-10-07] MEDS: K-DUR PO SCH (10:05)
[2018-10-07] MEDS: HEPARIN SUB-Q SCH ×2 (10:05→22:26)
[2018-10-07] MEDS: ROCEPHIN/NS 2 GM/100 ML 2 GM/100 ML BAG IV SCH (10:06)
--- NOTE | 2018-10-07 10:33 | Progress Note ---
Assessment and Plan Assessment and plan: Sepsis. Etiology secondary to Escherichia coli bacteremia. Escherichia coli bacteremia. ID following. Acute renal failure. Improved. Etiology secondary to sepsis/acute kidney injury. Nephrology following. Renal ultrasound with no hydronephrosis, angiolipoma noted. Pyelonephritis/UTI. ? Right renal lesion that is concerning for possible mass versus lipoma versus angiolipoma. Patient clinically improving. Patient has significant change, we will perform CT with contrast. Hypokalemia. Replete potassium. Metabolic acidosis. Bicarbonate drip discontinued per nephrology. Diabetes mellitus type 2. Continue Accu-Cheks and sliding scale as. Hypertension. Cont. antihypertensive medications. Disposition. PT recommends subacute rehabilitation. History Interval history: lisa is 63 years old female with history of diabetes, COPD and arthritis. Patient brought to the emergency room via EMS for evaluation of generalized weakness for the last 3 days. Patient found to be febrile with a temperature of 102.3 and tachycardic. The patient was admitted with diagnosis of sepsis and found to have etiology secondary to Escherichia coli bacteremia from probable UTI. Hospitalist Physical - Constitutional Vitals: Temp Pulse Resp BP Pulse Ox 98.0 F 70 18 155/72 99 10/07/18 08:17 10/07/18 08:00 10/07/18 08:17 10/07/18 08:17 10/07/18 08:59 General appearance: Present: no acute distress - EENT Eyes: Present: PERRL, EOM intact ENT: hearing intact, clear oral mucosa, dentition normal - Neck Neck: Present: supple, normal ROM - Respiratory Respiratory effort: normal Respiratory: bilateral: CTA - Cardiovascular Rhythm: regular Heart Sounds: Present: S1 & S2. Absent: gallop, rub - Extremities Extremities: no ischemia, No edema, Full ROM - Abdominal General gastrointestinal: soft, non-tender, non-distended, normal bowel sounds - Integumentary Integumentary: Present: clear, warm, dry - Neurologic Neurologic: CNII-XII intact, moves all extremities Results - Labs CBC & Chem 7: 10/03/18 04:43 10/07/18 05:05 Labs: Laboratory Last Values WBC 11.8 K/mm3 (4.5-11.0) H 10/03/18 04:43 RBC 4.59 M/mm3 (3.65-5.03) 10/03/18 04:43 Hgb 12.9 gm/dl (10.1-14.3) 10/03/18 04:43 Hct 37.0 % (30.3-42.9) 10/03/18 04:43 MCV 81 fl (79-97) 10/03/18 04:43 MCH 28 pg (28-32) 10/03/18 04:43 MCHC 35 % (30-34) H 10/03/18 04:43 RDW 16.5 % (13.2-15.2) H 10/03/18 04:43 Plt Count 177 K/mm3 (140-440) 10/03/18 04:43 Add Manual Diff Complete 10/03/18 04:43 Total Counted 100 10/03/18 04:43 Seg Neutrophils % [employer] 10/02/18 04:17 Seg Neuts % (Manual) 87.0 % (40.0-70.0) H 10/03/18 04:43 0 % 10/03/18 04:43 6.0 % (13.4-35.0) L 10/03/18 04:43 Reactive Lymphs % (Man) 1.0 % 10/03/18 04:43 6.0 % (0.0-7.3) 10/03/18 04:43 0 % (0.0-4.3) 10/03/18 04:43 0 % (0.0-1.8) 10/03/18 04:43 0 % 10/03/18 04:43 0 % 10/03/18 04:43 0 % 10/03/18 04:43 0 % 10/03/18 04:43 Nucleated RBC % Not Reportable 10/03/18 04:43 Seg Neutrophils # Man 10.3 K/mm3 (1.8-7.7) H 10/03/18 04:43 Band Neutrophils # 0.0 K/mm3 10/03/18 04:43 0.7 K/mm3 (1.2-5.4) L 10/03/18 04:43 Abs React Lymphs (Man) 0.1 K/mm3 10/03/18 04:43 0.7 K/mm3 (0.0-0.8) 10/03/18 04:43 0.0 K/mm3 (0.0-0.4) 10/03/18 04:43 0.0 K/mm3 (0.0-0.1) 10/03/18 04:43 0.0 K/mm3 10/03/18 04:43 0.0 K/mm3 10/03/18 04:43 0.0 K/mm3 10/03/18 04:43 Blast Cells # 0.0 K/mm3 10/03/18 04:43 WBC Morphology Not Reportable 10/03/18 04:43 Hypersegmented Neuts Not Reportable 10/03/18 04:43 Hyposegmented Neuts Not Reportable 10/03/18 04:43 Hypogranular Neuts Not Reportable 10/03/18 04:43 Not Reportable 10/03/18 04:43 Not Reportable 10/03/18 04:43 Not Reportable 10/03/18 04:43 Not Reportable 10/03/18 04:43 Not Reportable 10/03/18 04:43 Not Reportable 10/03/18 04:43 Consistent w auto 10/03/18 04:43 Not Reportable 10/03/18 04:43 Plt Clumps, EDTA Not Reportable 10/03/18 04:43 Few 10/03/18 04:43 Not Reportable 10/03/18 04:43 Not Reportable 10/03/18 04:43 Plt Morphology Comment Not Reportable 10/03/18 04:43 RBC Morphology Not Reportable 10/03/18 04:43 Dimorphic RBCs Not Reportable 10/03/18 04:43 Not Reportable 10/03/18 04:43 Not Reportable 10/03/18 04:43 1+ 10/03/18 04:43 1+ 10/03/18 04:43 Not Reportable 10/03/18 04:43 Not Reportable 10/03/18 04:43 Not Reportable 10/03/18 04:43 Not Reportable 10/03/18 04:43 Not Reportable 10/03/18 04:43 1+ 10/03/18 04:43 Not Reportable 10/03/18 04:43 Not Reportable 10/03/18 04:43 Not Reportable 10/03/18 04:43 Not Reportable 10/03/18 04:43 Not Reportable 10/03/18 04:43 Not Reportable 10/03/18 04:43 Not Reportable 10/03/18 04:43 Not Reportable 10/03/18 04:43 Not Reportable 10/03/18 04:43 Acanthocytes (Spur) Not Reportable 10/03/18 04:43 Rouleaux Not Reportable 10/03/18 04:43 Not Reportable 10/03/18 04:43 Not Reportable 10/03/18 04:43 Not Reportable 10/03/18 04:43 Not Reportable 10/03/18 04:43 Hem Pathologist Commnt No 10/03/18 04:43 PT 14.4 Sec. (12.2-14.9) 10/02/18 04:36 INR 1.05 (0.87-1.13) 10/02/18 04:36 VBG pH 7.304 (7.320-7.420) L 10/02/18 04:36 Sodium 136 mmol/L (137-145) L 10/07/18 05:05 Potassium 3.6 mmol/L (3.6-5.0) 10/07/18 05:05 Chloride 98.5 mmol/L (98-107) 10/07/18 05:05 Carbon Dioxide 23 mmol/L (22-30) D 10/07/18 05:05 20 mmol/L 10/07/18 05:05 BUN 17 mg/dL (7-17) 10/07/18 05:05 0.9 mg/dL (0.7-1.2) 10/07/18 05:05 Estimated GFR > 60 ml/min 10/07/18 05:05 19 % 10/07/18 05:05 Glucose 184 mg/dL (65-100) H 10/07/18 05:05 POC Glucose 222 (70-105) H 10/07/18 08:21 Lactic Acid 1.90 mmol/L (0.7-2.0) 10/02/18 07:33 Calcium 8.7 mg/dL (8.4-10.2) 10/07/18 05:05 Magnesium 1.90 mg/dL (1.7-2.3) 10/06/18 15:55 0.70 mg/dL (0.1-1.2) 10/02/18 04:17 AST 58 units/L (5-40) H 10/02/18 04:17 ALT 26 units/L (7-56) 10/02/18 04:17 146 units/L (35-129) H 10/02/18 04:17 NT-Pro-B Natriuret Pep 1081 pg/mL (0-900) H 10/02/18 04:17 8.6 g/dL (6.3-8.2) H 10/02/18 04:17 2.9 g/dL (3.9-5) L 10/02/18 04:17 0.5 % 10/02/18 04:17 Teresa (Yellow) 10/02/18 04:44 Turbid (Clear) 10/02/18 04:44 5.0 (5.0-7.0) 10/02/18 04:44 Ur Specific [place] 1.015 (1.003-1.030) 10/02/18 04:44 >500 mg/dL (Negative) 10/02/18 04:44 >=500 mg/dL (Negative) 10/02/18 04:44 20 mg/dL (Negative) 10/02/18 04:44 Lg (Negative) 10/02/18 04:44 Neg (Negative) 10/02/18 04:44 Neg (Negative) 10/02/18 04:44 < 2.0 mg/dL (<2.0) 10/02/18 04:44 Ur Leukocyte Esterase Lg (Negative) 10/02/18 04:44 > 182.0 /HPF (0.0-6.0) H 10/02/18 04:44 66.0 /HPF (0.0-6.0) 10/02/18 04:44 U Epithel Cells (Auto) 2.0 /HPF (0-13.0) 10/02/18 04:44 3+ /HPF (Negative) 10/02/18 04:44 3+ /HPF 10/02/18 04:44 2+ /HPF 10/02/18 04:44 108.0 mg/dL (0.1-20.0) H 10/02/18 06:43 Protein/Creatinin Ratio 2.27 10/02/18 06:43 32 mmol/L 10/02/18 06:43 245 mg/dL (5-11.8) H 10/02/18 06:43 Active Medications - Current Medications Current Medications: Generic Name Dose Route Start Last Admin Trade Name Freq PRN Reason Stop Dose Admin Acetaminophen 650 mg 10/02/18 05:42 10/04/18 21:53 Tylenol PO 650 mg Q4H PRN Administration Pain MILD(1-3)/Fever >100.5/MUHAMMAD Albuterol 2.5 mg 10/02/18 05:42 Proventil IH Q3HRT PRN Shortness Of Breath Dextrose 50 ml 10/02/18 06:04 D50w (25gm) Syringe IV PRN PRN Hypoglycemia Famotidine 20 mg 10/03/18 10:00 10/07/18 10:04 Pepcid PO 20 mg BID KATHY Administration Heparin Sodium (Porcine) 5,000 unit 10/02/18 10:00 10/07/18 10:05 Heparin SUB-Q 5,000 unit Q12HR KATHY Administration Hydralazine HCl 10 mg 10/03/18 20:33 10/07/18 04:24 Apresoline PO 10 mg Q4H PRN Administration Blood Pressure Ceftriaxone Sodium 2 gm in 100 mls @ 200 mls/hr 10/05/18 11:00 10/07/18 10:06 Rocephin/Ns 2 Gm/100 Ml IV 200 mls/hr Q24HR KATHY Administration Protocol Insulin Glargine 15 units 10/05/18 22:00 10/06/18 21:55 Lantus SUB-Q 15 units QHS KATHY Administration Insulin Human Lispro 0 unit 10/02/18 07:30 10/07/18 09:05 Humalog SUB-Q 4 unit ACHS KATHY Administration Protocol Ondansetron HCl 4 mg 10/02/18 05:42 Zofran IV Q8H PRN Nausea And Vomiting Potassium Chloride 40 meq 10/05/18 12:00 10/07/18 10:05 K-Dur PO 40 meq QDAY KATHY Administration Sodium Chloride 10 ml 10/02/18 10:00 10/07/18 09:07 Sodium Chloride Flush Syringe 10 Ml IV 10 ml BID KATHY Administration Sodium Chloride 10 ml 10/02/18 05:42 Sodium Chloride Flush Syringe 10 Ml IV PRN PRN LINE FLUSH Nutrition/Malnutrition Assess - Dietary Evaluation Nutrition/Malnutrition Findings: Nutrition Notes Start: 10/02/18 15:44 Freq: Status: Active Protocol: Document 05/30/19 17:20 RM (Rec: 10/04/18 17:29 RM [id number]) Nutrition Notes Initial or Follow up Assessment Current Diagnosis Acute Kidney Injury,Diabetes, Hypertension,Hyperlipidemia Other Pertinent Diagnosis Urosepsis, Generalized weakness, Dehydration Current Diet Renal/Cardiac Labs/Tests Reviewed Pertinent Medications Reviewed Height 5 ft 8 in Weight 169.8 kg [place] Body Weight (kg) 63.63 BMI 56.9 Weight change and time frame [facility] Subjective/Other Information Pt lethargic and sleepy at time of visit. Pt stated that her appetite is improving but she is not eating her meals d/ t not having adhesive for her top dentures. Pt not appropriate for education at this time. Percent of energy/protein needs met: 0%/0% #1 Nutrition Diagnosis Inadequate oral intake Etiology chewing difficulty As Evidenced by Signs and Symptoms pt statement that she is not eating her meals Is patient on ventilator? No Is Patient Ambulatory and/or Out of Bed No REE-([facility]-confined to bed) 2771.712 Kcal/Kg value to use for calculation 11 Approximate Energy Requirements Using 1868 kcal/Kg Calculation Used for Recommendations Kcal/kg Additional Notes Pro needs: 117-152g (1-1.3g/kg 117 kg adjBW ) Fluid needs per MD Nutrition Intervention Change Diet Order: Renal,Cardic, Mech soft w/ ground meat Goal #1 Meet at least 75% of calorie and protein needs via PO intakes Follow-Up By: 10/09/18 Additional Comments Follow for DM diet education, PO intakes
--- NOTE | 2018-10-07 11:57 | Progress Note ---
Assessment and Plan Cultures: 10/02/2018 urine culture: Mixed harini 10/02/2018 blood culture: Escherichia coli A/P: 63-year-old female with diabetes, COPD on home oxygen and arthritis, now with: 1) Sepsis secondary to Escherichia coli bacteremia from pyelonephritis and urinary tract infection: Improving. Discontinue Zosyn and start IV ceftriaxone. 2) Right renal lesion: Concerning for possible mass versus lipoma versus angiolipoma. This could also represent a renal abscess. Given improvement in kidney function, will obtain a CT abdomen and pelvis with IV contrast to evaluate for possibility of abscess. 3) Acute kidney injury: Improved. nephrology on board. 4) Morbid obesity 5) Diabetes mellitus type 2 Recs: continue IV Ceftriaxone 2 gm q24 hrs will order CT abdomen and pelvis with IV contrast to evaluate for possibility of renal abscess (given ultrasound findings) Anticipate discharge on PO Keflex 500 mg QID x [address] negative for renal abscess d/w Dr. Gamble. Shelbi Ramires MD [facility], [place], [facility] C: [phone] O: [phone] F: [phone] Subjective Date of service: 10/07/18 Principal diagnosis: jose Interval history: No fever. No new complaints. No nausea, vomiting. Objective - Exam Narrative Exam: Physical Exam: Constitutional: Alert, cooperative. No acute distress. morbidly obese Head, Ears, Nose: Normocephalic, atraumatic. External ears, nose normal Eyes: Conjunctivae/corneas clear. No icterus. No ptosis. Neck: Supple, no meningeal signs Oral: no ulcers, no thrush Cardiovascular: S1, S2 normal. Respiratory: Good air entry, clear to auscultation bilaterally GI: Soft, non-tender; bowel sounds normal. No peritoneal signs. no flank t enderness. no suprapubic tenderness Musculoskeletal: No pedal edema, no cyanosis. Skin: No rash or abscess Hem/Lymphatic: No palpable cervical or supraclavicular nodes. No lymphangitis Psych: Mood ok. Affect normal Neurological: Awake, alert, oriented. No gross abnormality - Constitutional Vitals: Vital Signs Temp Pulse Resp BP Pulse Ox 98.7 F 71 20 188/79 97 10/07/18 11:34 10/07/18 11:34 10/07/18 11:34 10/07/18 11:34 10/07/18 11:34 Temperature -Last 24 Hours Temperature 98.7 F Temperature 98.0 F Temperature 98 F Temperature 98.1 F Temperature 98.0 F Temperature 98.0 F Temperature 98.0 F Temperature 99.1 F - Labs CBC & Chem 7: 10/03/18 04:43 10/07/18 05:05 Labs: Abnormal lab results 10/06/18 10/06/18 10/06/18 Range/Units 11:44 17:07 21:33 Sodium (137-145) mmol/L Glucose (65-100) mg/dL POC Glucose 252 H 206 H 192 H (70-105) 10/07/18 10/07/18 Range/Units 05:05 08:21 Sodium 136 L (137-145) mmol/L Glucose 184 H (65-100) mg/dL POC Glucose 222 H (70-105)
--- NOTE | 2018-10-07 16:49 | Progress Note ---
Assessment and Plan - Patient Problems (1) UTI (urinary tract infection) Current Visit: Yes Status: Acute Plan to address problem: Urinary tract infection continue antibiotics (2) Acute renal failure Current Visit: Yes Status: Acute Plan to address problem: Acute renal failure resolving creatinine improved to 0.9 Secondary to volume depletion and infection I reviewed renal ultrasound which showed lesion in right kidney concerning for lipoma /angiomyolipoma recommend follow up ultrasound in 4 months as recommended by radiology . Patient is not interested in a CT at this time and Ultrasound follow up is reasonable. Currently off intravenous fluids (3) Hypokalemia Current Visit: Yes Status: Acute Plan to address problem: Hypokalemia: resolved continue potassium replacement. Continue replace potassium and check magnesium levels (4) Metabolic alkalosis Current Visit: Yes Status: Acute Plan to address problem: Metabolic alkalosis Continue potassium replacement. Monitor Subjective Principal diagnosis: jose Interval history: 63-year-old lady with medical history significant for hypertension admitted with sepsis concerning for pyelonephritis nephritis and acute kidney injury patient since. Patient seen today reports swelling is about the same denies any shortness of breath currently off intravenous fluids She is concerned about lesion in her kidney reports she is getting conflicting instructions about a CT ?lipoma/angiomyolipoma lesion appears small 1cm. Discussed renal ultrasound follow up in 4 months as recommended by radiology is appropiate. Objective - Vital Signs Vital signs: Vital Signs - 12hr 10/07/18 10/07/18 10/07/18 06:50 08:00 08:17 Temperature 98.1 F 98 F 98.0 F Pulse Rate 73 70 Respiratory 20 18 18 Rate Blood Pressure 166/72 155/72 Blood Pressure 155/72 [Left] O2 Sat by Pulse 97 94 Oximetry 10/07/18 10/07/18 10/07/18 08:59 10:00 11:34 Temperature 98.7 F Pulse Rate 71 71 Respiratory 20 Rate Blood Pressure 188/79 Blood Pressure [Left] O2 Sat by Pulse 99 97 Oximetry 10/07/18 10/07/18 15:31 15:48 Temperature 97.0 F L 97.9 F Pulse Rate 76 Respiratory 20 20 Rate Blood Pressure 167/71 Blood Pressure 167/71 [Left] O2 Sat by Pulse 95 Oximetry - General Appearance General appearance: well-developed, well-nourished EENT: ATNC, PERRL, mucous membranes moist Neck: no JVD Respiratory: Present: Clear to Ascultation Cardiology: regular, S1S2 Gastrointestinal: normal, normoactive bowel sounds Integumentary: no rash Neurologic: alert and oriented x3, CN 3-12 intact Psychiatric: mood/affect appropriate - Lab 10/03/18 04:43 10/07/18 05:05 Most recent lab results Calcium 8.7 mg/dL (8.4-10.2) 10/07/18 05:05 Magnesium 1.90 mg/dL (1.7-2.3) 10/06/18 15:55 108.0 mg/dL (0.1-20.0) H 10/02/18 06:43 32 mmol/L 10/02/18 06:43 245 mg/dL (5-11.8) H 10/02/18 06:43 Medications & Allergies - Medications Allergies/Adverse Reactions: Allergies No Known Allergies Allergy (Verified 10/02/18 04:22) Home Medications: Home Medications Medication Instructions Recorded Confirmed Last Taken Type AtorvaSTATin [Lipitor] 20 mg PO QHS 10/03/18 10/03/18 10/01/18 History Gabapentin [Neurontin] 100 mg PO Q8HR 10/03/18 10/03/18 10/01/18 History Glimepiride [Amaryl] 4 mg PO QAM 10/03/18 10/03/18 10/01/18 History Metformin HCl [metFORMIN] 1,000 mg PO BIDAC 10/03/18 10/03/18 10/01/18 History Omeprazole 40 mg PO QAM 10/03/18 10/03/18 10/01/18 History amLODIPine [Norvasc] 10 mg PO DAILY 10/03/18 10/03/18 10/01/18 History Active Medications: Generic Name Dose Route Start Last Admin Trade Name Freq PRN Reason Stop Dose Admin Acetaminophen 650 mg 10/02/18 05:42 10/04/18 21:53 Tylenol PO 650 mg Q4H PRN Administration Pain MILD(1-3)/Fever >100.5/[place]AM[place] Albuterol 2.5 mg 10/02/18 05:42 Proventil IH Q3HRT PRN Shortness Of Breath Dextrose 50 ml 10/02/18 06:04 D50w (25gm) Syringe IV PRN PRN Hypoglycemia Famotidine 20 mg 10/03/18 10:00 10/07/18 10:04 Pepcid PO 20 mg BID KATHY Administration Heparin Sodium (Porcine) 5,000 unit 10/02/18 10:00 10/07/18 10:05 Heparin SUB-Q 5,000 unit Q12HR KATHY Administration Hydralazine HCl 10 mg 10/03/18 20:33 10/07/18 04:24 Apresoline PO 10 mg Q4H PRN Administration Blood Pressure Ceftriaxone Sodium 2 gm in 100 mls @ 200 mls/hr 10/05/18 11:00 10/07/18 10:06 Rocephin/Ns 2 Gm/100 Ml IV 200 mls/hr Q24HR KATHY Administration Protocol Insulin Glargine 15 units 10/05/18 22:00 10/06/18 21:55 Lantus SUB-Q 15 units QHS KATHY Administration Insulin Human Lispro 0 unit 10/02/18 07:30 10/07/18 12:49 Humalog SUB-Q 6 unit ACHS KATHY Administration Protocol Ondansetron HCl 4 mg 10/02/18 05:42 Zofran IV Q8H PRN Nausea And Vomiting Potassium Chloride 40 meq 10/05/18 12:00 10/07/18 10:05 K-Dur PO 40 meq QDAY KATHY Administration Sodium Chloride 10 ml 10/02/18 10:00 10/07/18 09:07 Sodium Chloride Flush Syringe 10 Ml IV 10 ml BID KATHY Administration Sodium Chloride 10 ml 10/02/18 05:42 Sodium Chloride Flush Syringe 10 Ml IV PRN PRN LINE FLUSH
[2018-10-07] MEDS: LANTUS SUB-Q SCH (22:25)
[2018-10-08] MEDS: APRESOLINE PO PRN ×2 (02:47→07:08)
[2018-10-08 05:38] LABS: BUN/Creatinine Ratio 14; Blood Urea Nitrogen 13 mg/dL (7-17); Calcium 8.9 mg/dL (8.4-10.2); Hemolysis Index 70
[2018-10-08] MEDS ORDERED: NON-FORMULARY (Metformin Hcl [Metformin] 1,000 MG) PO SCH (07:30)
[2018-10-08] MEDS: HumaLOG SUB-Q SCH ×4 (08:26→22:17)
[2018-10-08] MEDS: AMARYL PO SCH (09:23)
[2018-10-08] MEDS: ROCEPHIN/NS 2 GM/100 ML 2 GM/100 ML BAG IV SCH (09:23)
[2018-10-08] MEDS: GLUCOPHAGE PO SCH ×2 (09:23→17:20)
[2018-10-08] MEDS: NORVASC PO SCH (09:24)
[2018-10-08] MEDS: K-DUR PO SCH (09:24)
[2018-10-08] MEDS: HEPARIN SUB-Q SCH ×2 (09:25→22:18)
[2018-10-08] MEDS: PEPCID PO SCH ×2 (09:25→22:18)
--- NOTE | 2018-10-08 09:36 | Progress Note ---
Assessment and Plan Assessment and plan: Sepsis. Etiology secondary to Escherichia coli bacteremia. Escherichia coli bacteremia. ID following. Acute kidney injury. Improved. Etiology secondary to vasomotor nephropathy. Nephrology following. Renal ultrasound with no hydronephrosis, angiolipoma noted. Pyelonephritis/UTI. Right renal lesion that is concerning for possible mass versus lipoma versus angiolipoma. CT with contrast to rule out abscess. Hypokalemia. Replete potassium. Metabolic acidosis. Bicarbonate drip discontinued per nephrology. Diabetes mellitus type 2. Continue Accu-Cheks and sliding scale as. Hypertension. Blood pressure elevated today. Resume Norvasc. Add when necessary hydralazine. Disposition. PT recommends subacute rehabilitation. History Interval history: Patient is 63 years old female with history of diabetes, COPD and arthritis. Patient brought to the emergency room via EMS for evaluation of generalized weakness for the last 3 days. Patient found to be febrile with a temperature of 102.3 and tachycardic. The patient was admitted with diagnosis of sepsis and found to have etiology secondary to Escherichia coli bacteremia from probable UTI. Hospitalist Physical - Constitutional Vitals: Temp Pulse Resp BP Pulse Ox 98.5 F 71 20 179/85 95 10/08/18 07:08 10/08/18 09:24 10/08/18 07:08 10/08/18 09:24 10/08/18 07:08 General appearance: Present: no acute distress - EENT Eyes: Present: PERRL, EOM intact ENT: hearing intact, clear oral mucosa, dentition normal - Neck Neck: Present: supple, normal ROM - Respiratory Respiratory effort: normal Respiratory: bilateral: CTA - Cardiovascular Rhythm: regular Heart Sounds: Present: S1 & S2. Absent: gallop, rub - Extremities Extremities: no ischemia, No edema, Full ROM - Abdominal General gastrointestinal: soft, non-tender, non-distended, normal bowel sounds - Integumentary Integumentary: Present: clear, warm, dry - Neurologic Neurologic: CNII-XII intact, moves all extremities Results - Labs CBC & Chem 7: 10/03/18 04:43 10/08/18 04:41 Labs: Laboratory Last Values WBC 11.8 K/mm3 (4.5-11.0) H 10/03/18 04:43 RBC 4.59 M/mm3 (3.65-5.03) 10/03/18 04:43 Hgb 12.9 gm/dl (10.1-14.3) 10/03/18 04:43 Hct 37.0 % (30.3-42.9) 10/03/18 04:43 MCV 81 fl (79-97) 10/03/18 04:43 MCH 28 pg (28-32) 10/03/18 04:43 MCHC 35 % (30-34) H 10/03/18 04:43 RDW 16.5 % (13.2-15.2) H 10/03/18 04:43 Plt Count 177 K/mm3 (140-440) 10/03/18 04:43 Add Manual Diff Complete 10/03/18 04:43 Total Counted 100 10/03/18 04:43 Seg Neutrophils % Gumming Machine Operator 10/02/18 04:17 Seg Neuts % (Manual) 87.0 % (40.0-70.0) H 10/03/18 04:43 0 % 10/03/18 04:43 6.0 % (13.4-35.0) L 10/03/18 04:43 Reactive Lymphs % (Man) 1.0 % 10/03/18 04:43 6.0 % (0.0-7.3) 10/03/18 04:43 0 % (0.0-4.3) 10/03/18 04:43 0 % (0.0-1.8) 10/03/18 04:43 0 % 10/03/18 04:43 0 % 10/03/18 04:43 0 % 10/03/18 04:43 0 % 10/03/18 04:43 Nucleated RBC % Not Reportable 10/03/18 04:43 Seg Neutrophils # Man 10.3 K/mm3 (1.8-7.7) H 10/03/18 04:43 Band Neutrophils # 0.0 K/mm3 10/03/18 04:43 0.7 K/mm3 (1.2-5.4) L 10/03/18 04:43 Abs React Lymphs (Man) 0.1 K/mm3 10/03/18 04:43 0.7 K/mm3 (0.0-0.8) 10/03/18 04:43 0.0 K/mm3 (0.0-0.4) 10/03/18 04:43 0.0 K/mm3 (0.0-0.1) 10/03/18 04:43 0.0 K/mm3 10/03/18 04:43 0.0 K/mm3 10/03/18 04:43 0.0 K/mm3 10/03/18 04:43 Blast Cells # 0.0 K/mm3 10/03/18 04:43 WBC Morphology Not Reportable 10/03/18 04:43 Hypersegmented Neuts Not Reportable 10/03/18 04:43 Hyposegmented Neuts Not Reportable 10/03/18 04:43 Hypogranular Neuts Not Reportable 10/03/18 04:43 Not Reportable 10/03/18 04:43 Not Reportable 10/03/18 04:43 Not Reportable 10/03/18 04:43 Not Reportable 10/03/18 04:43 Not Reportable 10/03/18 04:43 Not Reportable 10/03/18 04:43 Consistent w auto 10/03/18 04:43 Not Reportable 10/03/18 04:43 Plt Clumps, EDTA Not Reportable 10/03/18 04:43 Few 10/03/18 04:43 Not Reportable 10/03/18 04:43 Not Reportable 10/03/18 04:43 Plt Morphology Comment Not Reportable 10/03/18 04:43 RBC Morphology Not Reportable 10/03/18 04:43 Dimorphic RBCs Not Reportable 10/03/18 04:43 Not Reportable 10/03/18 04:43 Not Reportable 10/03/18 04:43 1+ 10/03/18 04:43 1+ 10/03/18 04:43 Not Reportable 10/03/18 04:43 Not Reportable 10/03/18 04:43 Not Reportable 10/03/18 04:43 Not Reportable 10/03/18 04:43 Not Reportable 10/03/18 04:43 1+ 10/03/18 04:43 Not Reportable 10/03/18 04:43 Not Reportable 10/03/18 04:43 Not Reportable 10/03/18 04:43 Not Reportable 10/03/18 04:43 Not Reportable 10/03/18 04:43 Not Reportable 10/03/18 04:43 Not Reportable 10/03/18 04:43 Not Reportable 10/03/18 04:43 Not Reportable 10/03/18 04:43 Acanthocytes (Spur) Not Reportable 10/03/18 04:43 Rouleaux Not Reportable 10/03/18 04:43 Not Reportable 10/03/18 04:43 Not Reportable 10/03/18 04:43 Not Reportable 10/03/18 04:43 Not Reportable 10/03/18 04:43 Hem Pathologist Commnt No 10/03/18 04:43 PT 14.4 Sec. (12.2-14.9) 10/02/18 04:36 INR 1.05 (0.87-1.13) 10/02/18 04:36 VBG pH 7.304 (7.320-7.420) L 10/02/18 04:36 Sodium 138 mmol/L (137-145) 10/08/18 04:41 Potassium 3.7 mmol/L (3.6-5.0) 10/08/18 04:41 Chloride 97.7 mmol/L (98-107) L 10/08/18 04:41 Carbon Dioxide 28 mmol/L (22-30) 10/08/18 04:41 16 mmol/L 10/08/18 04:41 BUN 13 mg/dL (7-17) 10/08/18 04:41 0.9 mg/dL (0.7-1.2) 10/08/18 04:41 Estimated GFR > 60 ml/min 10/08/18 04:41 14 % 10/08/18 04:41 Glucose 225 mg/dL (65-100) H 10/08/18 04:41 POC Glucose 228 (70-105) H 10/08/18 08:13 Lactic Acid 1.90 mmol/L (0.7-2.0) 10/02/18 07:33 Calcium 8.9 mg/dL (8.4-10.2) 10/08/18 04:41 Magnesium 1.90 mg/dL (1.7-2.3) 10/06/18 15:55 0.70 mg/dL (0.1-1.2) 10/02/18 04:17 AST 58 units/L (5-40) H 10/02/18 04:17 ALT 26 units/L (7-56) 10/02/18 04:17 146 units/L (35-129) H 10/02/18 04:17 NT-Pro-B Natriuret Pep 1081 pg/mL (0-900) H 10/02/18 04:17 8.6 g/dL (6.3-8.2) H 10/02/18 04:17 2.9 g/dL (3.9-5) L 10/02/18 04:17 0.5 % 10/02/18 04:17 Teresa (Yellow) 10/02/18 04:44 Turbid (Clear) 10/02/18 04:44 5.0 (5.0-7.0) 10/02/18 04:44 Ur Specific [place] 1.015 (1.003-1.030) 10/02/18 04:44 >500 mg/dL (Negative) 10/02/18 04:44 >=500 mg/dL (Negative) 10/02/18 04:44 20 mg/dL (Negative) 10/02/18 04:44 Lg (Negative) 10/02/18 04:44 Neg (Negative) 10/02/18 04:44 Neg (Negative) 10/02/18 04:44 < 2.0 mg/dL (<2.0) 10/02/18 04:44 Ur Leukocyte Esterase Lg (Negative) 10/02/18 04:44 > 182.0 /HPF (0.0-6.0) H 10/02/18 04:44 66.0 /HPF (0.0-6.0) 10/02/18 04:44 U Epithel Cells (Auto) 2.0 /HPF (0-13.0) 10/02/18 04:44 3+ /HPF (Negative) 10/02/18 04:44 3+ /HPF 10/02/18 04:44 2+ /HPF 10/02/18 04:44 108.0 mg/dL (0.1-20.0) H 10/02/18 06:43 Protein/Creatinin Ratio 2.27 10/02/18 06:43 32 mmol/L 10/02/18 06:43 245 mg/dL (5-11.8) H 10/02/18 06:43 Active Medications - Current Medications Current Medications: Generic Name Dose Route Start Last Admin Trade Name Freq PRN Reason Stop Dose Admin Acetaminophen 650 mg 10/02/18 05:42 10/04/18 21:53 Tylenol PO 650 mg Q4H PRN Administration Pain MILD(1-3)/Fever >100.5/[place] Albuterol 2.5 mg 10/02/18 05:42 Proventil IH Q3HRT PRN Shortness Of Breath Amlodipine Besylate 10 mg 10/08/18 10:00 10/08/18 09:24 Norvasc PO 10 mg DAILY [facility] Administration Atorvastatin Calcium 20 mg 10/08/18 22:00 Lipitor PO QHS [facility] Dextrose 50 ml 10/02/18 06:04 D50w (25gm) Syringe IV PRN PRN Hypoglycemia Famotidine 20 mg 10/03/18 10:00 10/08/18 09:25 Pepcid PO 20 mg BID [facility] Administration Gabapentin 100 mg 10/08/18 14:00 Neurontin PO Q8HR [facility] Glimepiride 4 mg 10/08/18 08:00 10/08/18 09:23 Amaryl PO Not Given QDDIAB [facility] Heparin Sodium (Porcine) 5,000 unit 10/02/18 10:00 10/07/18 22:26 Heparin SUB-Q 5,000 unit Q12HR [facility] Administration Hydralazine HCl 10 mg 10/03/18 20:33 10/08/18 07:08 Apresoline PO 10 mg Q4H PRN Administration Blood Pressure Ceftriaxone Sodium 2 gm in 100 mls @ 200 mls/hr 10/05/18 11:00 10/08/18 09:23 Rocephin/Ns 2 Gm/100 Ml IV 200 mls/hr Q24HR [facility] Administration Protocol Insulin Glargine 15 units 10/05/18 22:00 10/07/18 22:25 Lantus SUB-Q 15 units QHS [facility] Administration Insulin Human Lispro 0 unit 10/02/18 07:30 10/08/18 08:26 Humalog SUB-Q Not Given ACHS [facility] Protocol Metformin HCl 1,000 mg 10/08/18 09:00 10/08/18 09:23 Glucophage PO Not Given BIDDIAB [facility] Ondansetron HCl 4 mg 10/02/18 05:42 Zofran IV Q8H PRN Nausea And Vomiting Potassium Chloride 40 meq 10/05/18 12:00 10/08/18 09:24 K-Dur PO 40 meq QDAY KATHY Administration Sodium Chloride 10 ml 10/02/18 10:00 10/07/18 22:26 Sodium Chloride Flush Syringe 10 Ml IV 10 ml BID KATHY Administration Sodium Chloride 10 ml 10/02/18 05:42 Sodium Chloride Flush Syringe 10 Ml IV PRN PRN LINE FLUSH Nutrition/Malnutrition Assess - Dietary Evaluation Nutrition/Malnutrition Findings: Nutrition Notes Start: 10/02/18 1 5:44 Freq: Status: Active Protocol: Document 10/04/18 17:20 RM (Rec: 10/04/18 17:29 RM [id number]) Nutrition Notes Initial or Follow up Assessment Current Diagnosis Acute Kidney Injury,Diabetes, Hypertension,Hyperlipidemia Other Pertinent Diagnosis Urosepsis, Generalized weakness, Dehydration Current Diet Renal/Cardiac Labs/Tests Reviewed Pertinent Medications Reviewed Height 5 ft 8 in Weight 169.8 kg [place] Body Weight (kg) 63.63 BMI 56.9 Weight change and time frame Current wt obtained from [facility] Subjective/Other Information Pt lethargic and sleepy at time of visit. Pt stated that her appetite is improving but she is not eating her meals d/ t not having adhesive for her top dentures. Pt not appropriate for education at this time. Percent of energy/protein needs met: 0%/0% #1 Nutrition Diagnosis Inadequate oral intake Etiology chewing difficulty As Evidenced by Signs and Symptoms pt statement that she is not eating her meals Is patient on ventilator? No Is Patient Ambulatory and/or Out of Bed No REE-([facility]-confined to bed) 2771.712 Kcal/Kg value to use for calculation 11 Approximate Energy Requirements Using 1868 kcal/Kg Calculation Used for Recommendations Kcal/kg Additional Notes Pro needs: 117-152g (1-1.3g/kg 117 kg adjBW ) Fluid needs per MD Nutrition Intervention Change Diet Order: Renal,Cardic, Mech soft w/ ground meat Goal #1 Meet at least 75% of calorie and protein needs via PO intakes Follow-Up By: 10/09/18 Additional Comments Follow for DM diet education, PO intakes
--- NOTE | 2018-10-08 10:03 | Progress Note ---
Assessment and Plan Cultures: 10/02/2018 urine culture: Mixed harini 10/02/2018 blood culture: Escherichia coli A/P: 63-year-old female with diabetes, COPD on home oxygen and arthritis, now with: 1) Sepsis improved. Leukocytosis trending down, secondary to Escherichia coli bacteremia from pyelonephritis and urinary tract infection: Continue IV ceftriaxone. 2) Right renal lesion: Concerning for possible mass versus lipoma versus angiolipoma. This could also represent a renal abscess. Given improvement in kidney function, will obtain a CT abdomen and pelvis with IV contrast to evaluate for possibility of abscess. 3) Acute kidney injury: Improved. nephrology on board. 4) Morbid obesity 5) Diabetes mellitus type 2 Recs: continue IV Ceftriaxone 2 gm q24 hrs follow-up CT abdomen and pelvis with IV contrast to evaluate for possibility of renal abscess (given ultrasound findings) Anticipate discharge on PO Keflex 500 mg QID x [address] negative for renal abscess [facility] M: [phone] O:[phone] Subjective Date of service: 10/08/18 Principal diagnosis: jose Interval history: Patient seen and examined. Agitated about NPO status. No pain, SOB or fevers. Objective - Exam Narrative Exam: Constitutional: Alert, cooperative. No acute distress. morbidly obese Head, Ears, Nose: Normocephalic, atraumatic. External ears, nose normal Eyes: Conjunctivae/corneas clear. No icterus. No ptosis. Neck: Supple, no meningeal signs Oral: no ulcers, no thrush Cardiovascular: S1, S2 normal. Respiratory: Good air entry, clear to auscultation bilaterally GI: Soft, non-tender; bowel sounds normal. No peritoneal signs. no flank tende rness. no suprapubic tenderness Musculoskeletal: No pedal edema, no cyanosis. Skin: No rash or abscess Hem/Lymphatic: No palpable cervical or supraclavicular nodes. No lymphangitis Psych: Mood agitated. Neurological: Awake, alert, oriented. No gross abnormality - Constitutional Vitals: Vital Signs Temp Pulse Resp BP Pulse Ox 98.5 F 71 20 179/85 95 10/08/18 07:08 10/08/18 09:24 10/08/18 07:08 10/08/18 09:24 10/08/18 07:08 Temperature -Last 24 Hours Temperature 98.5 F Temperature 98.0 F Temperature 98.0 F Temperature 98.0 F Temperature 97.9 F Temperature 97.0 F Temperature 98.7 F - Labs CBC & Chem 7: 10/03/18 04:43 10/08/18 04:41 Labs: Abnormal lab results 10/07/18 10/07/18 10/07/18 Range/Units 11:39 16:47 21:17 Chloride (98-107) mmol/L Glucose (65-100) mg/dL POC Glucose 287 H 253 H 261 H (70-105) 10/08/18 10/08/18 Range/Units 04:41 08:13 Chloride 97.7 L (98-107) mmol/L Glucose 225 H (65-100) mg/dL POC Glucose 228 H (70-105)
[2018-10-08] MEDS: SODIUM CHLORIDE FLUSH SYRINGE 10 ML IV SCH ×2 (11:18→22:18)
--- NOTE | 2018-10-08 12:40 | Progress Note ---
Assessment and Plan Impression * Acute kidney injury * Urinary tract infection * Right renal mass * Obesity * Diabetes * Hypertension Recommendations * Patient's renal function has normalized. * A blood pressure is still elevated today. Adjust her antihypertensive meds * Renal ultrasound shows a hyperechoic lesion in her right kidney felt to be possibly angiomyolipoma. She will need a CT scan to better delineate that * Avoid nephrotoxins * No objection to discharge from renal standpoint * Shall follow her peripherally Subjective Date of service: 10/08/18 Principal diagnosis: jose Interval history: Patient is comfortable today. Denies any shortness of breath. No nausea or vomiting. Objective - Vital Signs Vital signs: Vital Signs - 12hr 10/08/18 10/08/18 10/08/18 02:47 04:17 07:08 Temperature 98.0 F 98.5 F Pulse Rate 72 78 91 H Respiratory 18 20 Rate Blood Pressure 178/78 185/78 192/83 O2 Sat by Pulse 95 95 Oximetry 10/08/18 09:24 Temperature Pulse Rate 71 Respiratory Rate Blood Pressure 179/85 O2 Sat by Pulse Oximetry - General Appearance General appearance: well-developed, well-nourished, appears stated age, obese EENT: PERRL, mucous membranes moist Neck: no JVD, no thyromegaly, no carotid bruit, supple Respiratory: Present: Clear to Ascultation Cardiology: regular, normal heart rate Gastrointestinal: normal, normoactive bowel sounds Integumentary: no rash, other (1+ edema) - Lab 10/03/18 04:43 10/08/18 04:41 Most recent lab results Calcium 8.9 mg/dL (8.4-10.2) 10/08/18 04:41 Magnesium 1.90 mg/dL (1.7-2.3) 10/06/18 15:55 108.0 mg/dL (0.1-20.0) H 10/02/18 06:43 32 mmol/L 10/02/18 06:43 245 mg/dL (5-11.8) H 10/02/18 06:43 Medications & Allergies - Medications Allergies/Adverse Reactions: Allergies No Known Allergies Allergy (Verified 10/02/18 04:22) Home Medications: Home Medications Medication Instructions Recorded Confirmed Last Taken Type AtorvaSTATin [Lipitor] 20 mg PO QHS 10/03/18 10/03/18 10/01/18 History Gabapentin [Neurontin] 100 mg PO Q8HR 10/03/18 10/03/18 10/01/18 History Glimepiride [Amaryl] 4 mg PO QAM 10/03/18 10/03/18 10/01/18 History Metformin HCl [metFORMIN] 1,000 mg PO BIDAC 10/03/18 10/03/18 10/01/18 History Omeprazole 40 mg PO QAM 10/03/18 10/03/18 10/01/18 History amLODIPine [Norvasc] 10 mg PO DAILY 10/03/18 10/03/18 10/01/18 History Active Medications: Generic Name Dose Route Start Last Admin Trade Name Freq PRN Reason Stop Dose Admin Acetaminophen 650 mg 10/02/18 05:42 10/04/18 21:53 Tylenol PO 650 mg Q4H PRN Administration Pain MILD(1-3)/Fever >100.5/[place] Albuterol 2.5 mg 10/02/18 05:42 Proventil IH Q3HRT PRN Shortness Of Breath Amlodipine Besylate 10 mg 10/08/18 10:00 10/08/18 09:24 Norvasc PO 10 mg DAILY [facility] Administration Atorvastatin Calcium 20 mg 10/08/18 22:00 Lipitor PO QHS [facility] Dextrose 50 ml 10/02/18 06:04 D50w (25gm) Syringe IV PRN PRN Hypoglycemia Famotidine 20 mg 10/03/18 10:00 10/08/18 09:25 Pepcid PO 20 mg BID [facility] Administration Gabapentin 100 mg 10/08/18 14:00 Neurontin PO Q8HR [facility] Glimepiride 4 mg 10/08/18 08:00 10/08/18 09:23 Amaryl PO Not Given QDDIAB [facility] Heparin Sodium (Porcine) 5,000 unit 10/02/18 10:00 10/08/18 09:25 Heparin SUB-Q 5,000 unit Q12HR [facility] Administration Hydralazine HCl 10 mg 10/03/18 20:33 10/08/18 07:08 Apresoline PO 10 mg Q4H PRN Administration Blood Pressure Hydralazine HCl 10 mg 10/08/18 10:00 Apresoline IV Q4HR PRN Blood Pressure Ceftriaxone Sodium 2 gm in 100 mls @ 200 mls/hr 10/05/18 11:00 10/08/18 09:23 Rocephin/Ns 2 Gm/100 Ml IV 200 mls/hr Q24HR [facility] Administration Protocol Insulin Glargine 15 units 10/05/18 22:00 10/07/18 22:25 Lantus SUB-Q 15 units QHS [facility] Administration Insulin Human Lispro 0 unit 10/02/18 07:30 10/08/18 12:16 Humalog SUB-Q Not Given ACHS [facility] Protocol Metformin HCl 1,000 mg 10/08/18 09:00 10/08/18 09:23 Glucophage PO Not Given BIDDIAB [facility] Ondansetron HCl 4 mg 10/02/18 05:42 Zofran IV Q8H PRN Nausea And Vomiting Potassium Chloride 40 meq 10/05/18 12:00 10/08/18 09:24 K-Dur PO 40 meq QDAY [facility]ATHY Administration Sodium Chloride 10 ml 10/02/18 10:00 10/08/18 11:18 Sodium Chloride Flush Syringe 10 Ml IV 10 ml BID KATHY Administration Sodium Chloride 10 ml 10/02/18 05:42 Sodium Chloride Flush Syringe 10 Ml IV PRN PRN LINE FLUSH
[2018-10-08] MEDS: NEURONTIN PO SCH ×2 (14:00→22:18)
--- NOTE | 2018-10-08 14:46 | Cat Scan Report ---
PROCEDURE: CT ABDOMEN PELVIS W CON TECHNIQUE: CT of the abdomen and pelvis was performed. IV contrast was administered. Axial images and coronal and sagittal reformatted images were obtained. HISTORY: RENAL ABSCESS COMPARISON: None FINDINGS: The visualized liver, spleen, pancreas, adrenal glands and kidneys demonstrate no significant abnorma lity. There is no renal abscess identified. There are aortoiliac atherosclerotic calcifications. There is no abdominal aortic aneurysm. There is no evidence for intestinal obstruction. The appendix is normal. There is no abnormal fluid collection seen. There is no free intraperitoneal air. There is some air-fluid levels in nondilated colon. There is no colonic wall thickening or pericoloni c inflammation seen. Bladder is unremarkable. IMPRESSION: No renal abscess seen. Air-fluid levels in normal caliber colon. This is nonspecific and can reflect any diarrhea causing pr ocess. This document is electronically signed by Amy aJime MD., October 08 2018 03:44:33 PM ET
[2018-10-08] MEDS: APRESOLINE IV PRN (18:52)
[2018-10-08] MEDS: LANTUS SUB-Q SCH (22:17)
[2018-10-08] MEDS: ALDACTONE PO SCH (22:18)
[2018-10-09] MEDS: APRESOLINE IV PRN (05:23)
[2018-10-09] MEDS: NEURONTIN PO SCH ×3 (05:23→22:28)
[2018-10-09 06:04] LABS: BUN/Creatinine Ratio 10; Blood Urea Nitrogen 10 mg/dL (7-17); Calcium 8.9 mg/dL (8.4-10.2); Hemolysis Index 5
[2018-10-09] MEDS: HumaLOG SUB-Q SCH ×4 (08:21→22:33)
[2018-10-09] MEDS: ALDACTONE PO SCH ×2 (09:36→22:27)
[2018-10-09] MEDS: GLUCOPHAGE PO SCH ×2 (09:36→17:17)
[2018-10-09] MEDS: ROCEPHIN/NS 2 GM/100 ML 2 GM/100 ML BAG IV SCH (09:36)
[2018-10-09] MEDS: NORVASC PO SCH (09:37)
[2018-10-09] MEDS: PEPCID PO SCH ×2 (09:37→22:28)
[2018-10-09] MEDS: HEPARIN SUB-Q SCH ×2 (09:37→22:33)
[2018-10-09] MEDS: AMARYL PO SCH (09:37)
[2018-10-09] MEDS: SODIUM CHLORIDE FLUSH SYRINGE 10 ML IV SCH ×2 (09:38→22:28)
--- NOTE | 2018-10-09 15:27 | Progress Note ---
Assessment and Plan Cultures: 10/02/2018 urine culture: Mixed harini 10/02/2018 blood culture: Escherichia coli A/P: 63-year-old female with diabetes, COPD on home oxygen and arthritis, now with: 1) Sepsis secondary to Escherichia coli bacteremia from pyelonephritis and urinary tract infection: Improved. On IV ceftriaxone. 2) Right renal lesion: CT abdomen and pelvis with IV contrast negative for abscess. 3) Acute kidney injury: Improved. nephrology on board. 4) Morbid obesity 5) Diabetes mellitus type 2 Recs: CT negative for renal abscess Last day of IV Ceftriaxone today, completed 7 days, no further abx needed D/W Dr. Cooley. Will sign off. Please call with questions MD [facility] C: [phone] O: [phone] F: [phone] Subjective Date of service: 10/09/18 Principal diagnosis: jose Interval history: Denies any complaints. No fever. Had abdomina CT yesterday. No rash. tolerating abx. Objective - Exam Narrative Exam: Physical Exam: Constitutional: Alert, cooperative. No acute distress. morbidly obese Head, Ears, Nose: Normocephalic, atraumatic. External ears, nose normal Eyes: Conjunctivae/corneas clear. No icterus. No ptosis. Neck: Supple, no meningeal signs Oral: no ulcers, no thrush Cardiovascular: S1, S2 normal. Respiratory: Good air entry, clear to auscultation bilaterally GI: Soft, non-tender; bowel sounds normal. No peritoneal signs. no CVA or suprapubic tenderness Musculoskeletal: No pedal edema, no cyanosis. Skin: No rash or abscess Hem/Lymphatic: No palpable cervical or supraclavicular nodes. No lymphangitis Psych: Mood ok. Affect normal Neurological: Awake, alert, oriented. No gross abnormality - Constitutional Vitals: Vital Signs Temp Pulse Resp BP Pulse Ox 98.5 F 88 20 139/69 98 10/09/18 08:38 10/09/18 08:38 10/09/18 08:38 10/09/18 09:37 10/09/18 09:45 Temperature -Last 24 Hours Temperature 98.5 F Temperature 98.3 F Temperature 99.1 F Temperature 98.9 F Temperature 99.1 F - Labs CBC & Chem 7: 05/29/19 04:43 10/09/18 04:52 Labs: Abnormal lab results 10/08/18 10/08/18 10/09/18 Range/Units 16:45 21:12 04:52 Glucose 162 H (65-100) mg/dL POC Glucose 223 H 218 H (70-105) 10/09/18 10/09/18 Range/Units 08:09 12:24 Glucose (65-100) mg/dL POC Glucose 188 H 174 H (70-105) - Imaging and cardiology CT scan - abdomen: report reviewed, image reviewed (no evidence of renal abscess.)
--- NOTE | 2018-10-09 15:37 | Progress Note ---
Assessment and Plan Assessment and plan: Patient is 63 years old female with history of diabetes, COPD and arthritis. Patient brought to the emergency room via EMS for evaluation of generalized weakness for the last 3 days. Patient found to be febrile with a temperature of 102.3 and tachycardic. The patient was admitted with diagnosis of sepsis and found to have etiology secondary to Escherichia coli bacteremia from pyelonephritis/UTI. Sepsis. Etiology secondary to Escherichia coli bacteremia. Escherichia coli bacteremia. ID following. Acute kidney injury. Improved. Etiology secondary to vasomotor nephropathy. Nephrology following. Renal ultrasound with no hydronephrosis, angiolipoma noted. Pyelonephritis/UTI. Hypokalemia. Replete potassium. Metabolic acidosis. Bicarbonate drip discontinued per nephrology. Diabetes mellitus type 2. Continue Accu-Cheks and sliding scale as. Hypertension. Monitor BP Disposition. awaiting placement in acute rehab. medically stable for discharge History Interval history: Feels better, No fever Hospitalist Physical - Physical exam Narrative exam: Gen: Not in acute distress, lying in bed, morbidly obese HEENT: Normocephalic, atraumatic Neck: supple, no JVD Heart: S1 and S2 reg, no murmurs, rubs or gallop Lungs: Clear, no crackles, no wheeze Abd: soft, non tender, non distended, normal BS Ext: No edema, no clubbing, no cyanosis, Neuro: Awake,alert, oriented x 3, moves all ext, non focal Psych:Normal mood - Constitutional Vitals: Temp Pulse Resp BP Pulse Ox 98.6 F 81 20 161/73 97 10/09/18 13:16 10/09/18 13:16 10/09/18 13:16 10/09/18 13:16 10/09/18 13:16 General appearance: Present: no acute distress Results - Labs CBC & Chem 7: 10/03/18 04:43 10/09/18 04:52 Labs: Laboratory Last Values WBC 11.8 K/mm3 (4.5-11.0) H 10/03/18 04:43 RBC 4.59 M/mm3 (3.65-5.03) 10/03/18 04:43 Hgb 12.9 gm/dl (10.1-14.3) 10/03/18 04:43 Hct 37.0 % (30.3-42.9) 10/03/18 04:43 MCV 81 fl (79-97) 10/03/18 04:43 MCH 28 pg (28-32) 10/03/18 04:43 MCHC 35 % (30-34) H 10/03/18 04:43 RDW 16.5 % (13.2-15.2) H 10/03/18 04:43 Plt Count 177 K/mm3 (140-440) 10/03/18 04:43 Add Manual Diff Complete 10/03/18 04:43 Total Counted 100 10/03/18 04:43 Seg Neutrophils % Dining Room Attendant 10/02/18 04:17 Seg Neuts % (Manual) 87.0 % (40.0-70.0) H 10/03/18 04:43 0 % 10/03/18 04:43 6.0 % (13.4-35.0) L 10/03/18 04:43 Reactive Lymphs % (Man) 1.0 % 10/03/18 04:43 6.0 % (0.0-7.3) 10/03/18 04:43 0 % (0.0-4.3) 10/03/18 04:43 0 % (0.0-1.8) 10/03/18 04:43 0 % 10/03/18 04:43 0 % 10/03/18 04:43 0 % 10/03/18 04:43 0 % 10/03/18 04:43 Nucleated RBC % Not Reportable 10/03/18 04:43 Seg Neutrophils # Man 10.3 K/mm3 (1.8-7.7) H 10/03/18 04:43 Band Neutrophils # 0.0 K/mm3 10/03/18 04:43 0.7 K/mm3 (1.2-5.4) L 10/03/18 04:43 Abs React Lymphs (Man) 0.1 K/mm3 10/03/18 04:43 0.7 K/mm3 (0.0-0.8) 10/03/18 04:43 0.0 K/mm3 (0.0-0.4) 10/03/18 04:43 0.0 K/mm3 (0.0-0.1) 10/03/18 04:43 0.0 K/mm3 10/03/18 04:43 0.0 K/mm3 10/03/18 04:43 0.0 K/mm3 10/03/18 04:43 Blast Cells # 0.0 K/mm3 10/03/18 04:43 WBC Morphology Not Reportable 10/03/18 04:43 Hypersegmented Neuts Not Reportable 10/03/18 04:43 Hyposegmented Neuts Not Reportable 10/03/18 04:43 Hypogranular Neuts Not Reportable 10/03/18 04:43 Not Reportable 10/03/18 04:43 Not Reportable 10/03/18 04:43 Not Reportable 10/03/18 04:43 Not Reportable 10/03/18 04:43 Not Reportable 10/03/18 04:43 Not Reportable 10/03/18 04:43 Consistent w auto 10/03/18 04:43 Not Reportable 10/03/18 04:43 Plt Clumps, EDTA Not Reportable 10/03/18 04:43 Few 10/03/18 04:43 Not Reportable 10/03/18 04:43 Not Reportable 10/03/18 04:43 Plt Morphology Comment Not Reportable 10/03/18 04:43 RBC Morphology Not Reportable 10/03/18 04:43 Dimorphic RBCs Not Reportable 10/03/18 04:43 Not Reportable 10/03/18 04:43 Not Reportable 10/03/18 04:43 1+ 10/03/18 04:43 1+ 10/03/18 04:43 Not Reportable 10/03/18 04:43 Not Reportable 10/03/18 04:43 Not Reportable 10/03/18 04:43 Not Reportable 10/03/18 04:43 Not Reportable 10/03/18 04:43 1+ 10/03/18 04:43 Not Reportable 10/03/18 04:43 Not Reportable 10/03/18 04:43 Not Reportable 10/03/18 04:43 Not Reportable 10/03/18 04:43 Not Reportable 10/03/18 04:43 Not Reportable 10/03/18 04:43 Not Reportable 10/03/18 04:43 Not Reportable 10/03/18 04:43 Not Reportable 10/03/18 04:43 Acanthocytes (Spur) Not Reportable 10/03/18 04:43 Rouleaux Not Reportable 10/03/18 04:43 Not Reportable 10/03/18 04:43 Not Reportable 10/03/18 04:43 Not Reportable 10/03/18 04:43 Not Reportable 10/03/18 04:43 Hem Pathologist Commnt No 10/03/18 04:43 PT 14.4 Sec. (12.2-14.9) 10/02/18 04:36 INR 1.05 (0.87-1.13) 10/02/18 04:36 VBG pH 7.304 (7.320-7.420) L 10/02/18 04:36 Sodium 140 mmol/L (137-145) 10/09/18 04:52 Potassium 4.3 mmol/L (3.6-5.0) 10/09/18 04:52 Chloride 99.7 mmol/L (98-107) 10/09/18 04:52 Carbon Dioxide 29 mmol/L (22-30) 10/09/18 04:52 16 mmol/L 10/09/18 04:52 BUN 10 mg/dL (7-17) 10/09/18 04:52 1.0 mg/dL (0.7-1.2) 10/09/18 04:52 Estimated GFR > 60 ml/min 10/09/18 04:52 10 % 10/09/18 04:52 Glucose 162 mg/dL (65-100) H 10/09/18 04:52 POC Glucose 174 (70-105) H 10/09/18 12:24 Lactic Acid 1.90 mmol/L (0.7-2.0) 10/02/18 07:33 Calcium 8.9 mg/dL (8.4-10.2) 10/09/18 04:52 Magnesium 1.90 mg/dL (1.7-2.3) 10/06/18 15:55 0.70 mg/dL (0.1-1.2) 10/02/18 04:17 AST 58 units/L (5-40) H 10/02/18 04:17 ALT 26 units/L (7-56) 10/02/18 04:17 146 units/L (35-129) H 10/02/18 04:17 NT-Pro-B Natriuret Pep 1081 pg/mL (0-900) H 10/02/18 04:17 8.6 g/dL (6.3-8.2) H 10/02/18 04:17 2.9 g/dL (3.9-5) L 10/02/18 04:17 0.5 % 10/02/18 04:17 Teresa (Yellow) 10/02/18 04:44 Turbid (Clear) 10/02/18 04:44 5.0 (5.0-7.0) 10/02/18 04:44 Ur Specific [place] 1.015 (1.003-1.030) 10/02/18 04:44 >500 mg/dL (Negative) 10/02/18 04:44 >=500 mg/dL (Negative) 10/02/18 04:44 20 mg/dL (Negative) 10/02/18 04:44 Lg (Negative) 10/02/18 04:44 Neg (Negative) 10/02/18 04:44 Neg (Negative) 10/02/18 04:44 < 2.0 mg/dL (<2.0) 10/02/18 04:44 Ur Leukocyte Esterase Lg (Negative) 10/02/18 04:44 > 182.0 /HPF (0.0-6.0) H 10/02/18 04:44 66.0 /HPF (0.0-6.0) 10/02/18 04:44 U Epithel Cells (Auto) 2.0 /HPF (0-13.0) 10/02/18 04:44 3+ /HPF (Negative) 10/02/18 04:44 3+ /HPF 10/02/18 04:44 2+ /HPF 10/02/18 04:44 108.0 mg/dL (0.1-20.0) H 10/02/18 06:43 Protein/Creatinin Ratio 2.27 10/02/18 06:43 32 mmol/L 10/02/18 06:43 245 mg/dL (5-11.8) H 10/02/18 06:43 Active Medications - Current Medications Current Medications: Generic Name Dose Route Start Last Admin Trade Name Freq PRN Reason Stop Dose Admin Acetaminophen 650 mg 10/02/18 05:42 10/04/18 21:53 Tylenol PO 650 mg Q4H PRN Administration Pain MILD(1-3)/Fever >100.5/[place]AM[place]AD Albuterol 2.5 mg 10/02/18 05:42 Proventil IH Q3HRT PRN Shortness Of Breath Amlodipine Besylate 10 mg 10/08/18 10:00 10/09/18 09:37 Norvasc PO 10 mg DAILY KATHY Administration Atorvastatin Calcium 20 mg 10/08/18 22:00 10/08/18 22:17 Lipitor PO 20 mg QHS KATHY Administration Dextrose 50 ml 10/02/18 06:04 D50w (25gm) Syringe IV PRN PRN Hypoglycemia Famotidine 20 mg 10/03/18 10:00 10/09/18 09:37 Pepcid PO 20 mg BID KATHY Administration Gabapentin 100 mg 10/08/18 14:00 10/09/18 13:18 Neurontin PO 100 mg Q8HR KATHY Administration Glimepiride 4 mg 10/08/18 08:00 10/09/18 09:37 Amaryl PO 4 mg QDDIAB KATHY Administration Heparin Sodium (Porcine) 5,000 unit 10/02/18 10:00 10/09/18 09:37 Heparin SUB-Q 5,000 unit Q12HR KATHY Administration Hydralazine HCl 10 mg 10/08/18 10:00 10/09/18 05:23 Apresoline IV 10 mg Q4HR PRN Administration Blood Pressure Insulin Glargine 15 units 10/05/18 22:00 10/08/18 22:17 Lantus SUB-Q 15 units QHS KATHY Administration Insulin Human Lispro 0 unit 10/02/18 07:30 10/09/18 12:24 Humalog SUB-Q 3 unit ACHS KATHY Administration Protocol Metformin HCl 1,000 mg 10/08/18 09:00 10/09/18 09:36 Glucophage PO 1,000 mg BIDDIAB KATHY Administration Ondansetron HCl 4 mg 10/02/18 05:42 Zofran IV Q8H PRN Nausea And Vomiting Sodium Chloride 10 ml 10/02/18 10:00 10/09/18 09:38 Sodium Chloride Flush Syringe 10 Ml IV 10 ml BID KATHY Administration Sodium Chloride 10 ml 10/02/18 05:42 Sodium Chloride Flush Syringe 10 Ml IV PRN PRN LINE FLUSH Spironolactone 25 mg 10/08/18 22:00 10/09/18 09:36 Aldactone PO 25 mg BID KATHY Administration Nutrition/Malnutrition Assess - Dietary Evaluation Nutrition/Malnutrition Findings: Nutrition Notes Start: 10/02/18 15:44 Freq: Status: Active Protocol: Document 10/09/18 15:13 RM (Rec: 10/09/18 15:19 RM [id number]) Nutrition Notes Initial or Follow up Reassessment Current Diagnosis Acute Kidney Injury,Diabetes, Hypertension,Hyperlipidemia Other Pertinent Diagnosis Urosepsis, Generalized weakness, Dehydration Current Diet Renal/Cardiac, Mech soft w/ ground meat Labs/Tests Reviewed Pertinent Medications Reviewed Height 5 ft 8 in Weight 170.3 kg [place] Body Weight (kg) 63.63 BMI 57.0 Subjective/Other Information Noted lunch at bedside with bites eaten. Pt stated that is how much she has eaten of all her meals here. Atttempted to teach carbohydrate counting. Pt stated that she is unable to read the print on nutrition labels. Embossing Tool Setter provided pt with program director substance abuse as visual guide for portioning of protein and carbohydrate. #1 Nutrition Diagnosis Inadequate oral intake Diagnosis Progress(for reassessment Continues documentation) Is patient on ventilator? No Is Patient Ambulatory and/or Out of Bed No REE-([facility]-confined to bed) 2777.712 Kcal/Kg value to use for calculation 11 Approximate Energy Requirements Using 1873 kcal/Kg Calculation Used for Recommendations Kcal/kg Additional Notes Pro needs: 117-152g (1-1.3g/kg 117 kg adjBW ) Fluid needs per MD Nutrition Intervention Change Diet Order: Continue current Add Supplement/Snack (indicate name/kcal Glucerna Chocolate or /protein ) [place] 1 daily Provides kCal: 220 Provides Protein (gm) 10 Goal #1 Meet at least 75% of calorie and protein needs via PO intakes Follow-Up By: 10/11/18 Additional Comments Follow for PO and ONS intakes
[2018-10-09] MEDS: LANTUS SUB-Q SCH (22:26)
[2018-10-10] MEDS: NEURONTIN PO SCH ×3 (05:51→22:43)
--- NOTE | 2018-10-10 10:18 | Progress Note ---
Subjective Date of service: 10/10/18 Principal diagnosis: jose Interval history: patient was not seen, ID signed off Objective - Constitutional Vitals: Vital Signs Temp Pulse Resp BP Pulse Ox 98.4 F 77 20 152/66 94 10/10/18 05:12 10/10/18 05:10 10/10/18 05:10 10/10/18 05:10 10/10/18 05:10 Temperature -Last 24 Hours Temperature 98.4 F Temperature 98.7 F Temperature 98.6 F Temperature 98.5 F Temperature 98.6 F - Labs CBC & Chem 7: 10/03/18 04:43 10/09/18 04:52 Labs: Abnormal lab results 10/09/18 10/09/18 10/09/18 Range/Units 12:24 17:04 21:45 POC Glucose 174 H 117 H 191 H (70-105) 10/10/18 Range/Units 07:30 POC Glucose 158 H (70-105)
--- NOTE | 2018-10-10 10:44 | Progress Note ---
Assessment and Plan Assessment and plan: Patient is 63 years old female with history of diabetes, COPD and arthritis. Patient brought to the emergency room via EMS for evaluation of generalized weakness for the last 3 days. Patient found to be febrile with a temperature of 102.3 and tachycardic. The patient was admitted with diagnosis of sepsis and found to have etiology secondary to Escherichia coli bacteremia from pyelonephritis/UTI. Sepsis. Etiology secondary to Escherichia coli bacteremia. Escherichia coli bacteremia. ID following. Acute kidney injury. Improved. Etiology secondary to vasomotor nephropathy. Nephrology following. Renal ultrasound with no hydronephrosis, angiolipoma noted. Pyelonephritis/UTI. Hypokalemia. Replete potassium. Metabolic acidosis. Bicarbonate drip discontinued per nephrology. Diabetes mellitus type 2. Continue Accu-Cheks and sliding scale as. Hypertension. Monitor BP Disposition. awaiting placement in acute rehab. medically stable for discharge Discussed with family caseworker History Interval history: Feels better, No fever Hospitalist Physical - Physical exam Narrative exam: Gen: Not in acute distress, lying in bed, morbidly obese HEENT: Normocephalic, atraumatic Neck: supple, no JVD Heart: S1 and S2 reg, no murmurs, rubs or gallop Lungs: Clear, no crackles, no wheeze Abd: soft, non tender, non distended, normal BS Ext: No edema, no clubbing, no cyanosis, Neuro: Awake,alert, oriented x 3, moves all ext, non focal Psych:Normal mood - Constitutional Vitals: Temp Pulse Resp BP Pulse Ox 98.4 F 77 20 152/66 94 10/10/18 05:12 10/10/18 05:10 10/10/18 05:10 10/10/18 05:10 10/10/18 05:10 General appearance: Present: no acute distress Results - Labs CBC & Chem 7: 10/03/18 04:43 10/09/18 04:52 Labs: Laboratory Last Values WBC 11.8 K/mm3 (4.5-11.0) H 10/03/18 04:43 RBC 4.59 M/mm3 (3.65-5.03) 10/03/18 04:43 Hgb 12.9 gm/dl (10.1-14.3) 10/03/18 04:43 Hct 37.0 % (30.3-42.9) 10/03/18 04:43 MCV 81 fl (79-97) 10/03/18 04:43 MCH 28 pg (28-32) 10/03/18 04:43 MCHC 35 % (30-34) H 10/03/18 04:43 RDW 16.5 % (13.2-15.2) H 10/03/18 04:43 Plt Count 177 K/mm3 (140-440) 10/03/18 04:43 Add Manual Diff Complete 10/03/18 04:43 Total Counted 100 10/03/18 04:43 Seg Neutrophils % Silk Screen Operator 10/02/18 04:17 Seg Neuts % (Manual) 87.0 % (40.0-70.0) H 10/03/18 04:43 0 % 10/03/18 04:43 6.0 % (13.4-35.0) L 10/03/18 04:43 Reactive Lymphs % (Man) 1.0 % 10/03/18 04:43 6.0 % (0.0-7.3) 10/03/18 04:43 0 % (0.0-4.3) 10/03/18 04:43 0 % (0.0-1.8) 10/03/18 04:43 0 % 10/03/18 04:43 0 % 10/03/18 04:43 0 % 10/03/18 04:43 0 % 10/03/18 04:43 Nucleated RBC % Not Reportable 10/03/18 04:43 Seg Neutrophils # Man 10.3 K/mm3 (1.8-7.7) H 10/03/18 04:43 Band Neutrophils # 0.0 K/mm3 10/03/18 04:43 0.7 K/mm3 (1.2-5.4) L 10/03/18 04:43 Abs React Lymphs (Man) 0.1 K/mm3 10/03/18 04:43 0.7 K/mm3 (0.0-0.8) 10/03/18 04:43 0.0 K/mm3 (0.0-0.4) 10/03/18 04:43 0.0 K/mm3 (0.0-0.1) 10/03/18 04:43 0.0 K/mm3 10/03/18 04:43 0.0 K/mm3 10/03/18 04:43 0.0 K/mm3 10/03/18 04:43 Blast Cells # 0.0 K/mm3 10/03/18 04:43 WBC Morphology Not Reportable 10/03/18 04:43 Hypersegmented Neuts Not Reportable 10/03/18 04:43 Hyposegmented Neuts Not Reportable 10/03/18 04:43 Hypogranular Neuts Not Reportable 10/03/18 04:43 Not Reportable 10/03/18 04:43 Not Reportable 10/03/18 04:43 Not Reportable 10/03/18 04:43 Not Reportable 10/03/18 04:43 Not Reportable 10/03/18 04:43 Not Reportable 10/03/18 04:43 Consistent w auto 10/03/18 04:43 Not Reportable 10/03/18 04:43 Plt Clumps, EDTA Not Reportable 10/03/18 04:43 Few 10/03/18 04:43 Not Reportable 10/03/18 04:43 Not Reportable 10/03/18 04:43 Plt Morphology Comment Not Reportable 10/03/18 04:43 RBC Morphology Not Reportable 10/03/18 04:43 Dimorphic RBCs Not Reportable 10/03/18 04:43 Not Reportable 10/03/18 04:43 Not Reportable 10/03/18 04:43 1+ 10/03/18 04:43 1+ 10/03/18 04:43 Not Reportable 10/03/18 04:43 Not Reportable 10/03/18 04:43 Not Reportable 10/03/18 04:43 Not Reportable 10/03/18 04:43 Not Reportable 10/03/18 04:43 1+ 10/03/18 04:43 Not Reportable 10/03/18 04:43 Not Reportable 10/03/18 04:43 Not Reportable 10/03/18 04:43 Not Reportable 10/03/18 04:43 Not Reportable 10/03/18 04:43 Not Reportable 10/03/18 04:43 Not Reportable 10/03/18 04:43 Not Reportable 10/03/18 04:43 Not Reportable 10/03/18 04:43 Acanthocytes (Spur) Not Reportable 10/03/18 04:43 Rouleaux Not Reportable 10/03/18 04:43 Not Reportable 10/03/18 04:43 Not Reportable 10/03/18 04:43 Not Reportable 10/03/18 04:43 Not Reportable 10/03/18 04:43 Hem Pathologist Commnt No 10/03/18 04:43 PT 14.4 Sec. (12.2-14.9) 10/02/18 04:36 INR 1.05 (0.87-1.13) 10/02/18 04:36 VBG pH 7.304 (7.320-7.420) L 10/02/18 04:36 Sodium 140 mmol/L (137-145) 10/09/18 04:52 Potassium 4.3 mmol/L (3.6-5.0) 10/09/18 04:52 Chloride 99.7 mmol/L (98-107) 10/09/18 04:52 Carbon Dioxide 29 mmol/L (22-30) 10/09/18 04:52 16 mmol/L 10/09/18 04:52 BUN 10 mg/dL (7-17) 10/09/18 04:52 1.0 mg/dL (0.7-1.2) 10/09/18 04:52 Estimated GFR > 60 ml/min 10/09/18 04:52 10 % 10/09/18 04:52 Glucose 162 mg/dL (65-100) H 10/09/18 04:52 POC Glucose 158 (70-105) H 10/10/18 07:30 Lactic Acid 1.90 mmol/L (0.7-2.0) 10/02/18 07:33 Calcium 8.9 mg/dL (8.4-10.2) 10/09/18 04:52 Magnesium 1.90 mg/dL (1.7-2.3) 10/06/18 15:55 0.70 mg/dL (0.1-1.2) 10/02/18 04:17 AST 58 units/L (5-40) H 10/02/18 04:17 ALT 26 units/L (7-56) 10/02/18 04:17 146 units/L (35-129) H 10/02/18 04:17 NT-Pro-B Natriuret Pep 1081 pg/mL (0-900) H 10/02/18 04:17 8.6 g/dL (6.3-8.2) H 10/02/18 04:17 2.9 g/dL (3.9-5) L 10/02/18 04:17 0.5 % 10/02/18 04:17 Teresa (Yellow) 10/02/18 04:44 Turbid (Clear) 10/02/18 04:44 5.0 (5.0-7.0) 10/02/18 04:44 Ur Specific [place] 1.015 (1.003-1.030) 10/02/18 04:44 >500 mg/dL (Negative) 10/02/18 04:44 >=500 mg/dL (Negative) 10/02/18 04:44 20 mg/dL (Negative) 10/02/18 04:44 Lg (Negative) 10/02/18 04:44 Neg (Negative) 10/02/18 04:44 Neg (Negative) 10/02/18 04:44 < 2.0 mg/dL (<2.0) 10/02/18 04:44 Ur Leukocyte Esterase Lg (Negative) 10/02/18 04:44 > 182.0 /HPF (0.0-6.0) H 10/02/18 04:44 66.0 /HPF (0.0-6.0) 10/02/18 04:44 U Epithel Cells (Auto) 2.0 /HPF (0-13.0) 10/02/18 04:44 3+ /HPF (Negative) 10/02/18 04:44 3+ /HPF 10/02/18 04:44 2+ /HPF 10/02/18 04:44 108.0 mg/dL (0.1-20.0) H 10/02/18 06:43 Protein/Creatinin Ratio 2.27 10/02/18 06:43 32 mmol/L 10/02/18 06:43 245 mg/dL (5-11.8) H 10/02/18 06:43 Active Medications - Current Medications Current Medications: Generic Name Dose Route Start Last Admin Trade Name Freq PRN Reason Stop Dose Admin Acetaminophen 650 mg 10/02/18 05:42 10/04/18 21:53 Tylenol PO 650 mg Q4H PRN Administration Pain MILD(1-3)/Fever >100.5/[place] Albuterol 2.5 mg 10/02/18 05:42 Proventil IH Q3HRT PRN Shortness Of Breath Amlodipine Besylate 10 mg 10/08/18 10:00 10/09/18 09:37 Norvasc PO 10 mg DAILY KATHY Administration Atorvastatin Calcium 20 mg 10/08/18 22:00 10/09/18 22:27 Lipitor PO 20 mg QHS KATHY Administration Dextrose 50 ml 10/02/18 06:04 D50w (25gm) Syringe IV PRN PRN Hypoglycemia Famotidine 20 mg 10/03/18 10:00 10/09/18 22:28 Pepcid PO 20 mg BID KATHY Administration Gabapentin 100 mg 10/08/18 14:00 10/10/18 05:51 Neurontin PO 100 mg Q8HR KATHY Administration Glimepiride 4 mg 10/08/18 08:00 10/09/18 09:37 Amaryl PO 4 mg QDDIAB KATHY Administration Heparin Sodium (Porcine) 5,000 unit 10/02/18 10:00 10/09/18 22:33 Heparin SUB-Q 5,000 unit Q12HR KATHY Administration Hydralazine HCl 10 mg 10/08/18 10:00 10/09/18 05:23 Apresoline IV 10 mg Q4HR PRN Administration Blood Pressure Insulin Glargine 15 units 10/05/18 22:00 10/09/18 22:26 Lantus SUB-Q 15 units QHS KATHY Administration Insulin Human Lispro 0 unit 10/02/18 07:30 10/09/18 22:33 Humalog SUB-Q 3 unit ACHS KATHY Administration Protocol Metformin HCl 1,000 mg 10/08/18 09:00 10/09/18 17:17 Glucophage PO 1,000 mg BIDDIAB KATHY Administration Ondansetron HCl 4 mg 10/02/18 05:42 Zofran IV Q8H PRN Nausea And Vomiting Sodium Chloride 10 ml 10/02/18 10:00 10/09/18 22:28 Sodium Chloride Flush Syringe 10 Ml IV 10 ml BID KATHY Administration Sodium Chloride 10 ml 10/02/18 05:42 Sodium Chloride Flush Syringe 10 Ml IV PRN PRN LINE FLUSH Spironolactone 25 mg 10/08/18 22:00 10/09/18 22:27 Aldactone PO 25 mg BID KATHY Administration Nutrition/Malnutrition Assess - Dietary Evaluation Nutrition/Malnutrition Findings: Nutrition Notes Start: 10/02/18 15:44 Freq: Status: Active Protocol: Document 10/09/18 15:13 RM (Rec: 10/09/18 15:19 RM [id number]) Nutrition Notes Initial or Follow up Reassessment Current Diagnosis Acute Kidney Injury,Diabetes, Hypertension,Hyperlipidemia Other Pertinent Diagnosis Urosepsis, Generalized weakness, Dehydration Current Diet Renal/Cardiac, Mech soft w/ ground meat Labs/Tests Reviewed Pertinent Medications Reviewed Height 5 ft 8 in Weight 170.3 kg [place] Body Weight (kg) 63.63 BMI 57.0 Subjective/Other Information Noted lunch at bedside with bites eaten. Pt stated that is how much she has eaten of all her meals here. Atttempted to teach carbohydrate counting. Pt stated that she is unable to read the print on nutrition labels. Acting Professor provided pt with vendette as visual guide for portioning of protein and carbohydrate. #1 Nutrition Diagnosis Inadequate oral intake Diagnosis Progress(for reassessment Continues documentation) Is patient on ventilator? No Is Patient Ambulatory and/or Out of Bed No REE-([facility]-confined to bed) 2777.712 Kcal/Kg value to use for calculation 11 Approximate Energy Requirements Using 1873 kcal/Kg Calculation Used for Recommendations Kcal/kg Additional Notes Pro needs: 117-152g (1-1.3g/kg 117 kg adjBW ) Fluid needs per MD Nutrition Intervention Change Diet Order: Continue current Add Supplement/Snack (indicate name/kcal Glucerna Chocolate or /protein ) [place] 1 daily Provides kCal: 220 Provides Protein (gm) 10 Goal #1 Meet at least 75% of calorie and protein needs via PO intakes Follow-Up By: 10/11/18 Additional Comments Follow for PO and ONS intakes
[2018-10-10] MEDS: HumaLOG SUB-Q SCH ×4 (10:51→22:51)
[2018-10-10] MEDS: HEPARIN SUB-Q SCH ×2 (10:53→22:45)
[2018-10-10] MEDS: GLUCOPHAGE PO SCH ×2 (10:54→18:05)
[2018-10-10] MEDS: PEPCID PO SCH ×2 (10:54→22:44)
[2018-10-10] MEDS: ALDACTONE PO SCH ×2 (10:54→22:44)
[2018-10-10] MEDS: AMARYL PO SCH (10:54)
[2018-10-10] MEDS: SODIUM CHLORIDE FLUSH SYRINGE 10 ML IV SCH ×2 (10:56→22:45)
[2018-10-10] MEDS: NORVASC PO SCH (11:07)
[2018-10-10] MEDS: LANTUS SUB-Q SCH (23:51)
[2018-10-11] MEDS: NEURONTIN PO SCH ×3 (05:00→22:25)
[2018-10-11] MEDS: APRESOLINE IV PRN (05:00)
--- NOTE | 2018-10-11 09:54 | Progress Note ---
Assessment and Plan Assessment and plan: Patient is 63 years old female with history of diabetes, COPD and arthritis. Patient brought to the emergency room via EMS for evaluation of generalized weakness for the last 3 days. Patient found to be febrile with a temperature of 102.3 and tachycardic. The patient was admitted with diagnosis of sepsis and found to have etiology secondary to Escherichia coli bacteremia from pyelonephritis/UTI. Sepsis. Etiology secondary to Escherichia coli bacteremia. Escherichia coli bacteremia. ID following. Acute kidney injury. Improved. Etiology secondary to vasomotor nephropathy. Nephrology following. Renal ultrasound with no hydronephrosis, angiolipoma noted. Pyelonephritis/UTI. Hypokalemia. Replete potassium. Metabolic acidosis. Bicarbonate drip discontinued per nephrology. Diabetes mellitus type 2. Continue Accu-Cheks and sliding scale as. Hypertension. Monitor BP Disposition. awaiting placement in acute rehab. medically stable for discharge Discussed with porter sample case History Interval history: Feels better, No fever No new complaints Hospitalist Physical - Physical exam Narrative exam: Gen: Not in acute distress, lying in bed, morbidly obese HEENT: Normocephalic, atraumatic Neck: supple, no JVD Heart: S1 and S2 reg, no murmurs, rubs or gallop Lungs: Clear, no crackles, no wheeze Abd: soft, non tender, non distended, normal BS Ext: No edema, no clubbing, no cyanosis, Neuro: Awake,alert, oriented x 3, moves all ext, non focal Psych:Normal mood - Constitutional Vitals: Temp Pulse Resp BP Pulse Ox 98.5 F 102 H 20 171/74 91 10/11/18 07:38 10/11/18 05:00 10/11/18 03:57 10/11/18 07:38 10/11/18 03:57 General appearance: Present: no acute distress Results - Labs CBC & Chem 7: 10/03/18 04:43 10/09/18 04:52 Labs: Laboratory Last Values WBC 11.8 K/mm3 (4.5-11.0) H 10/03/18 04:43 RBC 4.59 M/mm3 (3.65-5.03) 10/03/18 04:43 Hgb 12.9 gm/dl (10.1-14.3) 10/03/18 04:43 Hct 37.0 % (30.3-42.9) 10/03/18 04:43 MCV 81 fl (79-97) 10/03/18 04:43 MCH 28 pg (28-32) 10/03/18 04:43 MCHC 35 % (30-34) H 10/03/18 04:43 RDW 16.5 % (13.2-15.2) H 10/03/18 04:43 Plt Count 177 K/mm3 (140-440) 10/03/18 04:43 Add Manual Diff Complete 10/03/18 04:43 Total Counted 100 10/03/18 04:43 Seg Neutrophils % [employer] 10/02/18 04:17 Seg Neuts % (Manual) 87.0 % (40.0-70.0) H 10/03/18 04:43 0 % 10/03/18 04:43 6.0 % (13.4-35.0) L 10/03/18 04:43 Reactive Lymphs % (Man) 1.0 % 10/03/18 04:43 6.0 % (0.0-7.3) 10/03/18 04:43 0 % (0.0-4.3) 10/03/18 04:43 0 % (0.0-1.8) 10/03/18 04:43 0 % 10/03/18 04:43 0 % 10/03/18 04:43 0 % 10/03/18 04:43 0 % 10/03/18 04:43 Nucleated RBC % Not Reportable 10/03/18 04:43 Seg Neutrophils # Man 10.3 K/mm3 (1.8-7.7) H 10/03/18 04:43 Band Neutrophils # 0.0 K/mm3 10/03/18 04:43 0.7 K/mm3 (1.2-5.4) L 10/03/18 04:43 Abs React Lymphs (Man) 0.1 K/mm3 10/03/18 04:43 0.7 K/mm3 (0.0-0.8) 10/03/18 04:43 0.0 K/mm3 (0.0-0.4) 10/03/18 04:43 0.0 K/mm3 (0.0-0.1) 10/03/18 04:43 0.0 K/mm3 10/03/18 04:43 0.0 K/mm3 10/03/18 04:43 0.0 K/mm3 10/03/18 04:43 Blast Cells # 0.0 K/mm3 10/03/18 04:43 WBC Morphology Not Reportable 10/03/18 04:43 Hypersegmented Neuts Not Reportable 10/03/18 04:43 Hyposegmented Neuts Not Reportable 10/03/18 04:43 Hypogranular Neuts Not Reportable 10/03/18 04:43 Not Reportable 10/03/18 04:43 Not Reportable 10/03/18 04:43 Not Reportable 10/03/18 04:43 Not Reportable 10/03/18 04:43 Not Reportable 10/03/18 04:43 Not Reportable 10/03/18 04:43 Consistent w auto 10/03/18 04:43 Not Reportable 10/03/18 04:43 Plt Clumps, EDTA Not Reportable 10/03/18 04:43 Few 10/03/18 04:43 Not Reportable 10/03/18 04:43 Not Reportable 10/03/18 04:43 Plt Morphology Comment Not Reportable 10/03/18 04:43 RBC Morphology Not Reportable 10/03/18 04:43 Dimorphic RBCs Not Reportable 10/03/18 04:43 Not Reportable 10/03/18 04:43 Not Reportable 10/03/18 04:43 1+ 10/03/18 04:43 1+ 10/03/18 04:43 Not Reportable 10/03/18 04:43 Not Reportable 10/03/18 04:43 Not Reportable 10/03/18 04:43 Not Reportable 10/03/18 04:43 Not Reportable 10/03/18 04:43 1+ 10/03/18 04:43 Not Reportable 10/03/18 04:43 Not Reportable 10/03/18 04:43 Not Reportable 10/03/18 04:43 Not Reportable 10/03/18 04:43 Not Reportable 10/03/18 04:43 Not Reportable 10/03/18 04:43 Not Reportable 10/03/18 04:43 Not Reportable 10/03/18 04:43 Not Reportable 10/03/18 04:43 Acanthocytes (Spur) Not Reportable 10/03/18 04:43 Rouleaux Not Reportable 10/03/18 04:43 Not Reportable 10/03/18 04:43 Not Reportable 10/03/18 04:43 Not Reportable 10/03/18 04:43 Not Reportable 10/03/18 04:43 Hem Pathologist Commnt No 10/03/18 04:43 PT 14.4 Sec. (12.2-14.9) 10/02/18 04:36 INR 1.05 (0.87-1.13) 10/02/18 04:36 VBG pH 7.304 (7.320-7.420) L 10/02/18 04:36 Sodium 140 mmol/L (137-145) 10/09/18 04:52 Potassium 4.3 mmol/L (3.6-5.0) 10/09/18 04:52 Chloride 99.7 mmol/L (98-107) 10/09/18 04:52 Carbon Dioxide 29 mmol/L (22-30) 10/09/18 04:52 16 mmol/L 10/09/18 04:52 BUN 10 mg/dL (7-17) 10/09/18 04:52 1.0 mg/dL (0.7-1.2) 10/09/18 04:52 Estimated GFR > 60 ml/min 10/09/18 04:52 10 % 10/09/18 04:52 Glucose 162 mg/dL (65-100) H 10/09/18 04:52 POC Glucose 184 (70-105) H 10/11/18 08:43 Lactic Acid 1.90 mmol/L (0.7-2.0) 10/02/18 07:33 Calcium 8.9 mg/dL (8.4-10.2) 10/09/18 04:52 Magnesium 1.90 mg/dL (1.7-2.3) 10/06/18 15:55 0.70 mg/dL (0.1-1.2) 10/02/18 04:17 AST 58 units/L (5-40) H 10/02/18 04:17 ALT 26 units/L (7-56) 10/02/18 04:17 146 units/L (35-129) H 10/02/18 04:17 NT-Pro-B Natriuret Pep 1081 pg/mL (0-900) H 10/02/18 04:17 8.6 g/dL (6.3-8.2) H 10/02/18 04:17 2.9 g/dL (3.9-5) L 10/02/18 04:17 0.5 % 10/02/18 04:17 Teresa (Yellow) 10/02/18 04:44 Turbid (Clear) 10/02/18 04:44 5.0 (5.0-7.0) 10/02/18 04:44 Ur Specific [place] 1.015 (1.003-1.030) 10/02/18 04:44 >500 mg/dL (Negative) 10/02/18 04:44 >=500 mg/dL (Negative) 10/02/18 04:44 20 mg/dL (Negative) 10/02/18 04:44 Lg (Negative) 10/02/18 04:44 Neg (Negative) 10/02/18 04:44 Neg (Negative) 10/02/18 04:44 < 2.0 mg/dL (<2.0) 10/02/18 04:44 Ur Leukocyte Esterase Lg (Negative) 10/02/18 04:44 > 182.0 /HPF (0.0-6.0) H 10/02/18 04:44 66.0 /HPF (0.0-6.0) 10/02/18 04:44 U Epithel Cells (Auto) 2.0 /HPF (0-13.0) 10/02/18 04:44 3+ /HPF (Negative) 10/02/18 04:44 3+ /HPF 10/02/18 04:44 2+ /HPF 10/02/18 04:44 108.0 mg/dL (0.1-20.0) H 10/02/18 06:43 Protein/Creatinin Ratio 2.27 10/02/18 06:43 32 mmol/L 10/02/18 06:43 245 mg/dL (5-11.8) H 10/02/18 06:43 Active Medications - Current Medications Current Medications: Generic Name Dose Route Start Last Admin Trade Name Freq PRN Reason Stop Dose Admin Acetaminophen 650 mg 10/02/18 05:42 10/04/18 21:53 Tylenol PO 650 mg Q4H PRN Administration Pain MILD(1-3)/Fever >100.5/MUHAMMAD Albuterol 2.5 mg 10/02/18 05:42 Proventil IH Q3HRT PRN Shortness Of Breath Amlodipine Besylate 10 mg 10/08/18 10:00 10/10/18 11:07 Norvasc PO 10 mg DAILY KATHY Administration Atorvastatin Calcium 20 mg 10/08/18 22:00 10/10/18 22:43 Lipitor PO 20 mg QHS KATHY Administration Dextrose 50 ml 10/02/18 06:04 D50w (25gm) Syringe IV PRN PRN Hypoglycemia Famotidine 20 mg 10/03/18 10:00 10/10/18 22:44 Pepcid PO 20 mg BID KATHY Administration Gabapentin 100 mg 10/08/18 14:00 10/11/18 05:00 Neurontin PO 100 mg Q8HR KATHY Administration Glimepiride 4 mg 10/08/18 08:00 10/10/18 10:54 Amaryl PO 4 mg QDDIAB KATHY Administration Heparin Sodium (Porcine) 5,000 unit 10/02/18 10:00 10/10/18 22:45 Heparin SUB-Q 5,000 unit Q12HR KATHY Administration Hydralazine HCl 10 mg 10/08/18 10:00 10/11/18 05:00 Apresoline IV 10 mg Q4HR PRN Administration Blood Pressure Insulin Glargine 15 units 10/05/18 22:00 10/10/18 23:51 Lantus SUB-Q 15 units QHS KATHY Administration Insulin Human Lispro 0 unit 10/02/18 07:30 10/10/18 22:51 Humalog SUB-Q Not Given [facility] Protocol Metformin HCl 1,000 mg 10/08/18 09:00 10/10/18 18:05 Glucophage PO 1,000 mg BIDDIAB KATHY Administration Ondansetron HCl 4 mg 10/02/18 05:42 Zofran IV Q8H PRN Nausea And Vomiting Sodium Chloride 10 ml 10/02/18 10:00 10/10/18 22:45 Sodium Chloride Flush Syringe 10 Ml IV 10 ml BID KATHY Administration Sodium Chloride 10 ml 10/02/18 05:42 Sodium Chloride Flush Syringe 10 Ml IV PRN PRN LINE FLUSH Spironolactone 25 mg 06/03/19 22:00 10/10/18 22:44 Aldactone PO 25 mg BID KATHY Administration Nutrition/Malnutrition Assess - Dietary Evaluation Nutrition/Malnutrition Findings: Nutrition Notes Start: 10/02/18 15:44 Freq: Status: Active Protocol: Document 10/09/18 15:13 RM (Rec: 10/09/18 15:19 RM [id number]) Nutrition Notes Initial or Follow up Reassessment Current Diagnosis Acute Kidney Injury,Diabetes, Hypertension,Hyperlipidemia Other Pertinent Diagnosis Urosepsis, Generalized weakness, Dehydration Current Diet Renal/Cardiac, Mech soft w/ ground meat Labs/Tests Reviewed Pertinent Medications Reviewed Height 5 ft 8 in Weight 170.3 kg [place] Body Weight (kg) 63.63 BMI 57.0 Subjective/Other Information Noted lunch at bedside with bites eaten. Pt stated that is how much she has eaten of all her meals here. Atttempted to teach carbohydrate counting. Pt stated that she is unable to read the print on nutrition labels. Credit Risk Manager provided pt with vp cardiovascular as visual guide for portioning of protein and carbohydrate. #1 Nutrition Diagnosis Inadequate oral intake Diagnosis Progress(for reassessment Continues documentation) Is patient on ventilator? No Is Patient Ambulatory and/or Out of Bed No REE-([facility] [place]-confined to bed) 2777.712 Kcal/Kg value to use for calculation 11 Approximate Energy Requirements Using 1873 kcal/Kg Calculation Used for Recommendations Kcal/kg Additional Notes Pro needs: 117-152g (1-1.3g/kg 117 kg adjBW ) Fluid needs per MD Nutrition Intervention Change Diet Order: Continue current Add Supplement/Snack (indicate name/kcal Glucerna Chocolate or /protein ) [place] 1 daily Provides kCal: 220 Provides Protein (gm) 10 Goal #1 Meet at least 75% of calorie and protein needs via PO intakes Follow-Up By: 10/11/18 Additional Comments Follow for PO and ONS intakes
[2018-10-11] MEDS: NORVASC PO SCH (12:12)
[2018-10-11] MEDS: ALDACTONE PO SCH ×2 (12:12→22:25)
[2018-10-11] MEDS: AMARYL PO SCH (12:13)
[2018-10-11] MEDS: HEPARIN SUB-Q SCH ×2 (12:13→22:28)
[2018-10-11] MEDS: PEPCID PO SCH ×2 (12:13→22:25)
[2018-10-11] MEDS: GLUCOPHAGE PO SCH ×2 (12:13→18:09)
[2018-10-11] MEDS: HumaLOG SUB-Q SCH ×3 (16:14→22:28)
[2018-10-11] MEDS: SODIUM CHLORIDE FLUSH SYRINGE 10 ML IV SCH ×2 (16:15→22:29)
[2018-10-11] MEDS: LANTUS SUB-Q SCH (22:29)
[2018-10-12] MEDS: APRESOLINE IV PRN ×2 (04:31→18:42)
[2018-10-12] MEDS: NEURONTIN PO SCH ×3 (05:32→21:00)
[2018-10-12] MEDS: HumaLOG SUB-Q SCH ×4 (09:53→21:13)
[2018-10-12] MEDS: ALDACTONE PO SCH ×2 (09:53→21:00)
[2018-10-12] MEDS: GLUCOPHAGE PO SCH ×2 (09:53→18:42)
[2018-10-12] MEDS: AMARYL PO SCH (09:53)
[2018-10-12] MEDS: PEPCID PO SCH ×2 (09:53→21:00)
[2018-10-12] MEDS: NORVASC PO SCH (09:54)
[2018-10-12] MEDS: HEPARIN SUB-Q SCH ×2 (09:55→21:01)
[2018-10-12] MEDS: SODIUM CHLORIDE FLUSH SYRINGE 10 ML IV SCH ×2 (13:00→21:04)
--- NOTE | 2018-10-12 16:47 | Progress Note ---
Assessment and Plan Assessment and plan: Patient is 63 years old female with history of diabetes, COPD and arthritis. Patient brought to the emergency room via EMS for evaluation of generalized weakness for the last 3 days. Patient found to be febrile with a temperature of 102.3 and tachycardic. The patient was admitted with diagnosis of sepsis and found to have etiology secondary to Escherichia coli bacteremia from pyelonephritis/UTI. Sepsis. Etiology secondary to Escherichia coli bacteremia. Escherichia coli bacteremia. ID following. Acute kidney injury. Improved. Etiology secondary to vasomotor nephropathy. Nephrology following. Renal ultrasound with no hydronephrosis, angiolipoma noted. Pyelonephritis/UTI. Hypokalemia. Replete potassium. Metabolic acidosis. Bicarbonate drip discontinued per nephrology. Diabetes mellitus type 2. Continue Accu-Cheks and sliding scale as. Hypertension. Monitor BP Disposition. awaiting placement in acute rehab. medically stable for discharge Discussed with outsole caser History Interval history: Feels better, No fever No new complaints Hospitalist Physical - Physical exam Narrative exam: Gen: Not in acute distress, lying in bed, morbidly obese HEENT: Normocephalic, atraumatic Neck: supple, no JVD Heart: S1 and S2 reg, no murmurs, rubs or gallop Lungs: Clear, no crackles, no wheeze Abd: soft, non tender, non distended, normal BS Ext: No edema, no clubbing, no cyanosis, Neuro: Awake,alert, oriented x 3, moves all ext, non focal Psych:Normal mood - Constitutional Vitals: Temp Pulse Resp BP Pulse Ox 98.8 F 87 20 173/77 100 10/12/18 11:06 10/12/18 11:07 10/12/18 11:06 10/12/18 11:06 10/12/18 11:07 General appearance: Present: no acute distress Results - Labs CBC & Chem 7: 10/03/18 04:43 10/09/18 04:52 Labs: Laboratory Last Values WBC 11.8 K/mm3 (4.5-11.0) H 10/03/18 04:43 RBC 4.59 M/mm3 (3.65-5.03) 10/03/18 04:43 Hgb 12.9 gm/dl (10.1-14.3) 10/03/18 04:43 Hct 37.0 % (30.3-42.9) 10/03/18 04:43 MCV 81 fl (79-97) 10/03/18 04:43 MCH 28 pg (28-32) 10/03/18 04:43 MCHC 35 % (30-34) H 10/03/18 04:43 RDW 16.5 % (13.2-15.2) H 10/03/18 04:43 Plt Count 177 K/mm3 (140-440) 10/03/18 04:43 Add Manual Diff Complete 10/03/18 04:43 Total Counted 100 10/03/18 04:43 Seg Neutrophils % Mobility Engineer 10/02/18 04:17 Seg Neuts % (Manual) 87.0 % (40.0-70.0) H 10/03/18 04:43 0 % 10/03/18 04:43 6.0 % (13.4-35.0) L 10/03/18 04:43 Reactive Lymphs % (Man) 1.0 % 10/03/18 04:43 6.0 % (0.0-7.3) 10/03/18 04:43 0 % (0.0-4.3) 10/03/18 04:43 0 % (0.0-1.8) 10/03/18 04:43 0 % 10/03/18 04:43 0 % 10/03/18 04:43 0 % 10/03/18 04:43 0 % 10/03/18 04:43 Nucleated RBC % Not Reportable 10/03/18 04:43 Seg Neutrophils # Man 10.3 K/mm3 (1.8-7.7) H 10/03/18 04:43 Band Neutrophils # 0.0 K/mm3 10/03/18 04:43 0.7 K/mm3 (1.2-5.4) L 10/03/18 04:43 Abs React Lymphs (Man) 0.1 K/mm3 10/03/18 04:43 0.7 K/mm3 (0.0-0.8) 10/03/18 04:43 0.0 K/mm3 (0.0-0.4) 10/03/18 04:43 0.0 K/mm3 (0.0-0.1) 10/03/18 04:43 0.0 K/mm3 10/03/18 04:43 0.0 K/mm3 10/03/18 04:43 0.0 K/mm3 10/03/18 04:43 Blast Cells # 0.0 K/mm3 10/03/18 04:43 WBC Morphology Not Reportable 10/03/18 04:43 Hypersegmented Neuts Not Reportable 10/03/18 04:43 Hyposegmented Neuts Not Reportable 10/03/18 04:43 Hypogranular Neuts Not Reportable 10/03/18 04:43 Not Reportable 10/03/18 04:43 Not Reportable 10/03/18 04:43 Not Reportable 10/03/18 04:43 Not Reportable 10/03/18 04:43 Not Reportable 10/03/18 04:43 Not Reportable 10/03/18 04:43 Consistent w auto 10/03/18 04:43 Not Reportable 10/03/18 04:43 Plt Clumps, EDTA Not Reportable 10/03/18 04:43 Few 10/03/18 04:43 Not Reportable 10/03/18 04:43 Not Reportable 10/03/18 04:43 Plt Morphology Comment Not Reportable 10/03/18 04:43 RBC Morphology Not Reportable 10/03/18 04:43 Dimorphic RBCs Not Reportable 10/03/18 04:43 Not Reportable 10/03/18 04:43 Not Reportable 10/03/18 04:43 1+ 10/03/18 04:43 1+ 10/03/18 04:43 Not Reportable 10/03/18 04:43 Not Reportable 10/03/18 04:43 Not Reportable 10/03/18 04:43 Not Reportable 10/03/18 04:43 Not Reportable 10/03/18 04:43 1+ 10/03/18 04:43 Not Reportable 10/03/18 04:43 Not Reportable 10/03/18 04:43 Not Reportable 10/03/18 04:43 Not Reportable 10/03/18 04:43 Not Reportable 10/03/18 04:43 Not Reportable 10/03/18 04:43 Not Reportable 10/03/18 04:43 Not Reportable 10/03/18 04:43 Not Reportable 10/03/18 04:43 Acanthocytes (Spur) Not Reportable 10/03/18 04:43 Rouleaux Not Reportable 10/03/18 04:43 Not Reportable 10/03/18 04:43 Not Reportable 10/03/18 04:43 Not Reportable 10/03/18 04:43 Not Reportable 10/03/18 04:43 Hem Pathologist Commnt No 10/03/18 04:43 PT 14.4 Sec. (12.2-14.9) 10/02/18 04:36 INR 1.05 (0.87-1.13) 10/02/18 04:36 VBG pH 7.304 (7.320-7.420) L 10/02/18 04:36 Sodium 140 mmol/L (137-145) 10/09/18 04:52 Potassium 4.3 mmol/L (3.6-5.0) 10/09/18 04:52 Chloride 99.7 mmol/L (98-107) 10/09/18 04:52 Carbon Dioxide 29 mmol/L (22-30) 10/09/18 04:52 16 mmol/L 10/09/18 04:52 BUN 10 mg/dL (7-17) 10/09/18 04:52 1.0 mg/dL (0.7-1.2) 10/09/18 04:52 Estimated GFR > 60 ml/min 10/09/18 04:52 10 % 10/09/18 04:52 Glucose 162 mg/dL (65-100) H 10/09/18 04:52 POC Glucose 177 (70-105) H 10/12/18 11:10 Lactic Acid 1.90 mmol/L (0.7-2.0) 10/02/18 07:33 Calcium 8.9 mg/dL (8.4-10.2) 10/09/18 04:52 Magnesium 1.90 mg/dL (1.7-2.3) 10/06/18 15:55 0.70 mg/dL (0.1-1.2) 10/02/18 04:17 AST 58 units/L (5-40) H 10/02/18 04:17 ALT 26 units/L (7-56) 10/02/18 04:17 146 units/L (35-129) H 10/02/18 04:17 NT-Pro-B Natriuret Pep 1081 pg/mL (0-900) H 10/02/18 04:17 8.6 g/dL (6.3-8.2) H 10/02/18 04:17 2.9 g/dL (3.9-5) L 10/02/18 04:17 0.5 % 10/02/18 04:17 Teresa (Yellow) 10/02/18 04:44 Turbid (Clear) 10/02/18 04:44 5.0 (5.0-7.0) 10/02/18 04:44 Ur Specific [place] 1.015 (1.003-1.030) 10/02/18 04:44 >500 mg/dL (Negative) 10/02/18 04:44 >=500 mg/dL (Negative) 10/02/18 04:44 20 mg/dL (Negative) 10/02/18 04:44 Lg (Negative) 10/02/18 04:44 Neg (Negative) 10/02/18 04:44 Neg (Negative) 10/02/18 04:44 < 2.0 mg/dL (<2.0) 10/02/18 04:44 Ur Leukocyte Esterase Lg (Negative) 10/02/18 04:44 > 182.0 /HPF (0.0-6.0) H 10/02/18 04:44 66.0 /HPF (0.0-6.0) 10/02/18 04:44 U Epithel Cells (Auto) 2.0 /HPF (0-13.0) 10/02/18 04:44 3+ /HPF (Negative) 10/02/18 04:44 3+ /HPF 10/02/18 04:44 2+ /HPF 10/02/18 04:44 108.0 mg/dL (0.1-20.0) H 10/02/18 06:43 Protein/Creatinin Ratio 2.27 10/02/18 06:43 32 mmol/L 10/02/18 06:43 245 mg/dL (5-11.8) H 10/02/18 06:43 Active Medications - Current Medications Current Medications: Generic Name Dose Route Start Last Admin Trade Name Freq PRN Reason Stop Dose Admin Acetaminophen 650 mg 10/02/18 05:42 10/04/18 21:53 Tylenol PO 650 mg Q4H PRN Administration Pain MILD(1-3)/Fever >100.5/[place]UHAMMAD Albuterol 2.5 mg 10/02/18 05:42 Proventil IH Q3HRT PRN Shortness Of Breath Amlodipine Besylate 10 mg 10/08/18 10:00 10/12/18 09:54 Norvasc PO 10 mg DAILY KATHY Administration Atorvastatin Calcium 20 mg 10/08/18 22:00 10/11/18 22:25 Lipitor PO 20 mg QHS KTAHY Administration Dextrose 50 ml 10/02/18 06:04 D50w (25gm) Syringe IV PRN PRN Hypoglycemia Famotidine 20 mg 10/03/18 10:00 10/12/18 09:53 Pepcid PO 20 mg BID KATHY Administration Gabapentin 100 mg 10/08/18 14:00 10/12/18 13:07 Neurontin PO 100 mg Q8HR KATHY Administration Glimepiride 4 mg 10/08/18 08:00 10/12/18 09:53 Amaryl PO 4 mg QDDIAB KATHY Administration Heparin Sodium (Porcine) 5,000 unit 10/02/18 10:00 10/12/18 09:55 Heparin SUB-Q 5,000 unit Q12HR KATHY Administration Hydralazine HCl 10 mg 10/08/18 10:00 10/12/18 04:31 Apresoline IV 10 mg Q4HR PRN Administration Blood Pressure Insulin Glargine 15 units 10/05/18 22:00 10/11/18 22:29 Lantus SUB-Q 15 units QHS KATHY Administration Insulin Human Lispro 0 unit 10/02/18 07:30 10/12/18 12:59 Humalog SUB-Q 3 unit ACHS KATHY Administration Protocol Metformin HCl 1,000 mg 10/08/18 09:00 10/12/18 09:53 Glucophage PO 1,000 mg BIDDIAB KATHY Administration Ondansetron HCl 4 mg 10/02/18 05:42 Zofran IV Q8H PRN Nausea And Vomiting Sodium Chloride 10 ml 10/02/18 10:00 10/12/18 13:00 Sodium Chloride Flush Syringe 10 Ml IV 10 ml BID KATHY Administration Sodium Chloride 10 ml 10/02/18 05:42 Sodium Chloride Flush Syringe 10 Ml IV PRN PRN LINE FLUSH Spironolactone 25 mg 06/03/19 22:00 10/12/18 09:53 Aldactone PO 25 mg BID KATHY Administration Nutrition/Malnutrition Assess - Dietary Evaluation Nutrition/Malnutrition Findings: Nutrition Notes Start: 10/02/18 15:44 Freq: Status: Active Protocol: Document 10/11/18 15:34 RM (Rec: 10/11/18 15:39 RM [id number]) Nutrition Notes Initial or Follow up Reassessment Current Diagnosis Acute Kidney Injury,Diabetes, Hypertension,Hyperlipidemia Other Pertinent Diagnosis Urosepsis, Generalized weakness, Dehydration, Vagina skin tear Current Diet Renal/Cardiac, Mech soft w/ ground meat and Glucerna 1 daily Labs/Tests Reviewed Pertinent Medications Reviewed Height 5 ft 8 in Weight 171 kg [place] Body Weight (kg) 63.63 BMI 57.3 Subjective/Other Information Pt stated that she ate most of her breakfast and the peaches from her lunch. Also stated that she drinks the Glucerna. Stated she gets full from breakfast and that is why she eats less of the lunch and dinner. Declined offer to increase Glucerna to BID. Percent of energy/protein needs met: 40%/25% Burn Absent Trauma Absent #1 Nutrition Diagnosis Inadequate oral intake As Evidenced by Signs and Symptoms pt meeting 40% of calorie and 25% of protein needs Diagnosis Progress(for reassessment Improved documentation) Is patient on ventilator? No Is Patient Ambulatory and/or Out of Bed No REE-([facility]-confined to bed) 2786.100 Kcal/Kg value to use for calculation 11 Approximate Energy Requirements Using 1881 kcal/Kg Calculation Used for Recommendations Kcal/kg Additional Notes Pro needs: 117-152g (1-1.3g/kg 117 kg adjBW ) Fluid needs per MD Nutrition Intervention Change Diet Order: Continue current Add Supplement/Snack (indicate name/kcal Glucerna Chocolate or /protein ) [place] 1 daily Provides kCal: 220 Provides Protein (gm) 10 Goal #1 Meet at least 75% of calorie and protein needs via PO intakes Follow-Up By: 10/17/18 Additional Comments Follow for PO and ONS intakes
[2018-10-12] MEDS ORDERED: DIFLUCAN PO ONE (18:48)
[2018-10-12] MEDS: LANTUS SUB-Q SCH (21:01)
[2018-10-13] MEDS: NEURONTIN PO SCH ×3 (05:16→22:11)
[2018-10-13 05:43] LABS: Hematocrit 30.2 % (30.3-42.9); Hemoglobin 10.5 gm/dl (10.1-14.3); Mean Corpuscular HGB Conc 35 % (30-34); Mean Corpuscular Volume 82 fl (79-97); Platelet Count 453 K/mm3 (140-440); Red Blood Count 3.71 M/mm3 (3.65-5.03); Red Cell Distribution Width 16.5 % (13.2-15.2)
[2018-10-13 06:09] LABS: Calcium 9.2 mg/dL (8.4-10.2)
[2018-10-13] MEDS: HumaLOG SUB-Q SCH ×4 (08:20→22:08)
[2018-10-13] MEDS: AMARYL PO SCH (08:48)
[2018-10-13] MEDS: GLUCOPHAGE PO SCH ×2 (08:48→17:43)
--- NOTE | 2018-10-13 09:46 | Progress Note ---
Assessment and Plan Assessment and plan: Patient is 63 years old female with history of diabetes, COPD and arthritis. Patient brought to the emergency room via EMS for evaluation of generalized weakness for the last 3 days. Patient found to be febrile with a temperature of 102.3 and tachycardic. The patient was admitted with diagnosis of sepsis and found to have etiology secondary to Escherichia coli bacteremia from pyelonephritis/UTI. Sepsis. Etiology secondary to Escherichia coli bacteremia. Escherichia coli bacteremia. ID following. Acute kidney injury due to vasomotor nephropathy Was improved, but now Cr elevated at 1.5 Re-sume ivf NS @ 75 Pyelonephritis/UTI. Hypokalemia. Replete potassium. Metabolic acidosis. Bicarbonate drip discontinued per nephrology. Diabetes mellitus type 2. Continue Accu-Cheks and sliding scale as. Hypertension. Monitor BP Disposition. awaiting placement in acute rehab. medically stable for discharge Discussed with high risk case manager History Interval history: Feels better, No fever No new complaints Hospitalist Physical - Physical exam Narrative exam: Gen: Not in acute distress, lying in bed, morbidly obese HEENT: Normocephalic, atraumatic Neck: supple, no JVD Heart: S1 and S2 reg, no murmurs, rubs or gallop Lungs: Clear, no crackles, no wheeze Abd: soft, non tender, non distended, normal BS Ext: No edema, no clubbing, no cyanosis, Neuro: Awake,alert, oriented x 3, moves all ext, non focal Psych:Normal mood - Constitutional Vitals: Temp Pulse Resp BP Pulse Ox 98.5 F 82 20 145/63 91 10/13/18 05:25 10/13/18 05:25 10/13/18 05:25 10/13/18 05:25 10/13/18 05:25 General appearance: Present: no acute distress Results - Labs CBC & Chem 7: 10/13/18 05:15 10/13/18 05:15 Labs: Laboratory Last Values WBC 8.7 K/mm3 (4.5-11.0) 10/13/18 05:15 RBC 3.71 M/mm3 (3.65-5.03) 10/13/18 05:15 Hgb 10.5 gm/dl (10.1-14.3) 10/13/18 05:15 Hct 30.2 % (30.3-42.9) L 10/13/18 05:15 MCV 82 fl (79-97) 10/13/18 05:15 MCH 28 pg (28-32) 10/13/18 05:15 MCHC 35 % (30-34) H 10/13/18 05:15 RDW 16.5 % (13.2-15.2) H 10/13/18 05:15 Plt Count 453 K/mm3 (140-440) H 10/13/18 05:15 Add Manual Diff Complete 10/03/18 04:43 Total Counted 100 10/03/18 04:43 Seg Neutrophils % Utility Tender [place] 10/02/18 04:17 Seg Neuts % (Manual) 87.0 % (40.0-70.0) H 10/03/18 04:43 0 % 10/03/18 04:43 6.0 % (13.4-35.0) L 10/03/18 04:43 Reactive Lymphs % (Man) 1.0 % 10/03/18 04:43 6.0 % (0.0-7.3) 10/03/18 04:43 0 % (0.0-4.3) 10/03/18 04:43 0 % (0.0-1.8) 10/03/18 04:43 0 % 10/03/18 04:43 0 % 10/03/18 04:43 0 % 10/03/18 04:43 0 % 10/03/18 04:43 Nucleated RBC % Not Reportable 10/03/18 04:43 Seg Neutrophils # Man 10.3 K/mm3 (1.8-7.7) H 10/03/18 04:43 Band Neutrophils # 0.0 K/mm3 10/03/18 04:43 0.7 K/mm3 (1.2-5.4) L 10/03/18 04:43 Abs React Lymphs (Man) 0.1 K/mm3 10/03/18 04:43 0.7 K/mm3 (0.0-0.8) 10/03/18 04:43 0.0 K/mm3 (0.0-0.4) 10/03/18 04:43 0.0 K/mm3 (0.0-0.1) 10/03/18 04:43 0.0 K/mm3 10/03/18 04:43 0.0 K/mm3 10/03/18 04:43 0.0 K/mm3 10/03/18 04:43 Blast Cells # 0.0 K/mm3 10/03/18 04:43 WBC Morphology Not Reportable 10/03/18 04:43 Hypersegmented Neuts Not Reportable 10/03/18 04:43 Hyposegmented Neuts Not Reportable 10/03/18 04:43 Hypogranular Neuts Not Reportable 10/03/18 04:43 Not Reportable 10/03/18 04:43 Not Reportable 10/03/18 04:43 Not Reportable 10/03/18 04:43 Not Reportable 10/03/18 04:43 Not Reportable 10/03/18 04:43 Not Reportable 10/03/18 04:43 Consistent w auto 10/03/18 04:43 Not Reportable 10/03/18 04:43 Plt Clumps, EDTA Not Reportable 10/03/18 04:43 Few 10/03/18 04:43 Not Reportable 10/03/18 04:43 Not Reportable 10/03/18 04:43 Plt Morphology Comment Not Reportable 10/03/18 04:43 RBC Morphology Not Reportable 10/03/18 04:43 Dimorphic RBCs Not Reportable 10/03/18 04:43 Not Reportable 10/03/18 04:43 Not Reportable 10/03/18 04:43 1+ 10/03/18 04:43 1+ 10/03/18 04:43 Not Reportable 10/03/18 04:43 Not Reportable 10/03/18 04:43 Not Reportable 10/03/18 04:43 Not Reportable 10/03/18 04:43 Not Reportable 10/03/18 04:43 1+ 10/03/18 04:43 Not Reportable 10/03/18 04:43 Not Reportable 10/03/18 04:43 Not Reportable 10/03/18 04:43 Not Reportable 10/03/18 04:43 Not Reportable 10/03/18 04:43 Not Reportable 10/03/18 04:43 Not Reportable 10/03/18 04:43 Not Reportable 10/03/18 04:43 Not Reportable 10/03/18 04:43 Acanthocytes (Spur) Not Reportable 10/03/18 04:43 Rouleaux Not Reportable 10/03/18 04:43 Not Reportable 10/03/18 04:43 Not Reportable 10/03/18 04:43 Not Reportable 10/03/18 04:43 Not Reportable 10/03/18 04:43 Hem Pathologist Commnt No 10/03/18 04:43 PT 14.4 Sec. (12.2-14.9) 10/02/18 04:36 INR 1.05 (0.87-1.13) 10/02/18 04:36 VBG pH 7.304 (7.320-7.420) L 10/02/18 04:36 Sodium 140 mmol/L (137-145) 10/13/18 05:15 Potassium 4.0 mmol/L (3.6-5.0) 10/13/18 05:15 Chloride 101.0 mmol/L (98-107) 10/13/18 05:15 Carbon Dioxide 26 mmol/L (22-30) 10/13/18 05:15 17 mmol/L 10/13/18 05:15 BUN 14 mg/dL (7-17) 10/13/18 05:15 1.5 mg/dL (0.7-1.2) H 10/13/18 05:15 Estimated GFR 43 ml/min 10/13/18 05:15 9 % 10/13/18 05:15 Glucose 110 mg/dL (65-100) H 10/13/18 05:15 POC Glucose 82 (70-105) 10/13/18 07:54 Lactic Acid 1.90 mmol/L (0.7-2.0) 10/02/18 07:33 Calcium 9.2 mg/dL (8.4-10.2) 10/13/18 05:15 Magnesium 1.90 mg/dL (1.7-2.3) 10/06/18 15:55 0.70 mg/dL (0.1-1.2) 10/02/18 04:17 AST 58 units/L (5-40) H 10/02/18 04:17 ALT 26 units/L (7-56) 10/02/18 04:17 146 units/L (35-129) H 10/02/18 04:17 NT-Pro-B Natriuret Pep 1081 pg/mL (0-900) H 10/02/18 04:17 8.6 g/dL (6.3-8.2) H 10/02/18 04:17 2.9 g/dL (3.9-5) L 10/02/18 04:17 0.5 % 10/02/18 04:17 Teresa (Yellow) 10/02/18 04:44 Turbid (Clear) 10/02/18 04:44 5.0 (5.0-7.0) 10/02/18 04:44 Ur Specific [place] 1.015 (1.003-1.030) 10/02/18 04:44 >500 mg/dL (Negative) 10/02/18 04:44 >=500 mg/dL (Negative) 10/02/18 04:44 20 mg/dL (Negative) 10/02/18 04:44 Lg (Negative) 10/02/18 04:44 Neg (Negative) 10/02/18 04:44 Neg (Negative) 10/02/18 04:44 < 2.0 mg/dL (<2.0) 10/02/18 04:44 Ur Leukocyte Esterase Lg (Negative) 10/02/18 04:44 > 182.0 /HPF (0.0-6.0) H 10/02/18 04:44 66.0 /HPF (0.0-6.0) 10/02/18 04:44 U Epithel Cells (Auto) 2.0 /HPF (0-13.0) 10/02/18 04:44 3+ /HPF (Negative) 10/02/18 04:44 3+ /HPF 10/02/18 04:44 2+ /HPF 10/02/18 04:44 108.0 mg/dL (0.1-20.0) H 10/02/18 06:43 Protein/Creatinin Ratio 2.27 10/02/18 06:43 32 mmol/L 10/02/18 06:43 245 mg/dL (5-11.8) H 10/02/18 06:43 Active Medications - Current Medications Current Medications: Generic Name Dose Route Start Last Admin Trade Name Freq PRN Reason Stop Dose Admin Acetaminophen 650 mg 10/02/18 05:42 10/04/18 21:53 Tylenol PO 650 mg Q4H PRN Administration Pain MILD(1-3)/Fever >100.5/[place]AD Albuterol 2.5 mg 10/02/18 05:42 Proventil IH Q3HRT PRN Shortness Of Breath Amlodipine Besylate 10 mg 10/08/18 10:00 10/12/18 09:54 Norvasc PO 10 mg DAILY KATHY Administration Atorvastatin Calcium 20 mg 10/08/18 22:00 10/12/18 21:00 Lipitor PO 20 mg QHS KATHY Administration Dextrose 50 ml 10/02/18 06:04 D50w (25gm) Syringe IV PRN PRN Hypoglycemia Famotidine 20 mg 10/03/18 10:00 10/12/18 21:00 Pepcid PO 20 mg BID KATHY Administration Gabapentin 100 mg 10/08/18 14:00 10/13/18 05:16 Neurontin PO 100 mg Q8HR KATHY Administration Glimepiride 4 mg 10/08/18 08:00 10/13/18 08:48 Amaryl PO 4 mg QDDIAB KATHY Administration Heparin Sodium (Porcine) 5,000 unit 10/02/18 10:00 10/12/18 21:01 Heparin SUB-Q Not Given Q12HR [facility] Hydralazine HCl 10 mg 10/08/18 10:00 10/12/18 18:42 Apresoline IV 10 mg Q4HR PRN Administration Blood Pressure Sodium Chloride 1,000 mls @ 75 mls/hr 10/13/18 09:00 Nacl 0.9% 1000 Ml IV DIRECT [facility] Insulin Glargine 15 units 10/05/18 22:00 10/12/18 21:01 Lantus SUB-Q 15 units QHS KATHY Administration Insulin Human Lispro 0 unit 10/02/18 07:30 10/13/18 08:20 Humalog SUB-Q Not Given ACHS [facility] Protocol Metformin HCl 1,000 mg 10/08/18 09:00 10/13/18 08:48 Glucophage PO 1,000 mg BIDDIAB KATHY Administration Ondansetron HCl 4 mg 10/02/18 05:42 Zofran IV Q8H PRN Nausea And Vomiting Sodium Chloride 10 ml 10/02/18 10:00 10/12/18 21:04 Sodium Chloride Flush Syringe 10 Ml IV 10 ml BID KATHY Administration Sodium Chloride 10 ml 10/02/18 05:42 Sodium Chloride Flush Syringe 10 Ml IV PRN PRN LINE FLUSH Spironolactone 25 mg 10/08/18 22:00 10/12/18 21:00 Aldactone PO 25 mg BID KATHY Administration Nutrition/Malnutrition Assess - Dietary Evaluation Nutrition/Malnutrition Findings: Nutrition Notes Start: 10/02/18 15:44 Freq: Status: Active Protocol: Document 10/11/18 15:34 RM (Rec: 10/11/18 15:[id number]) Nutrition Notes Initial or Follow up Reassessment Current Diagnosis Acute Kidney Injury,Diabetes, Hypertension,Hyperlipidemia Other Pertinent Diagnosis Urosepsis, Generalized weakness, Dehydration, Vagina skin tear Current Diet Renal/Cardiac, Mech soft w/ ground meat and Glucerna 1 daily Labs/Tests Reviewed Pertinent Medications Reviewed Height 5 ft 8 in Weight 171 kg [place] Body Weight (kg) 63.63 BMI 57.3 Subjective/Other Information Pt stated that she ate most of her breakfast and the peaches from her lunch. Also stated that she drinks the Glucerna. Stated she gets full from breakfast and that is why she eats less of the lunch and dinner. Declined offer to increase Glucerna to BID. Percent of energy/protein needs met: 40%/25% Burn Absent Trauma Absent #1 Nutrition Diagnosis Inadequate oral intake As Evidenced by Signs and Symptoms pt meeting 40% of calorie and 25% of protein needs Diagnosis Progress(for reassessment Improved documentation) Is patient on ventilator? No Is Patient Ambulatory and/or Out of Bed No REE-([facility]-confined to bed) 2786.100 Kcal/Kg value to use for calculation 11 Approximate Energy Requirements Using 1881 kcal/Kg Calculation Used for Recommendations Kcal/kg Additional Notes Pro needs: 117-152g (1-1.3g/kg 117 kg adjBW ) Fluid needs per MD Nutrition Intervention Change Diet Order: Continue current Add Supplement/Snack (indicate name/kcal Glucerna Chocolate or /protein ) [place] 1 daily Provides kCal: 220 Provides Protein (gm) 10 Goal #1 Meet at least 75% of calorie and protein needs via PO intakes Follow-Up By: 10/17/18 Additional Comments Follow for PO and ONS intakes
[2018-10-13] MEDS: PEPCID PO SCH ×2 (10:14→22:11)
[2018-10-13] MEDS: NORVASC PO SCH (10:14)
[2018-10-13] MEDS: ALDACTONE PO SCH ×2 (10:14→22:12)
[2018-10-13] MEDS: SODIUM CHLORIDE FLUSH SYRINGE 10 ML IV SCH ×2 (10:15→22:11)
[2018-10-13] MEDS: HEPARIN SUB-Q SCH ×2 (10:17→22:56)
[2018-10-13] MEDS: NACL 0.9% 1000 ML 1,000 ML IV SCH (12:49)
[2018-10-13] MEDS ORDERED: IMODIUM PO PRN (18:37)
[2018-10-13] MEDS: LANTUS SUB-Q SCH (22:09)
[2018-10-14] MEDS: NACL 0.9% 1000 ML 1,000 ML IV SCH ×2 (01:10→14:20)
[2018-10-14] MEDS: NEURONTIN PO SCH ×3 (06:30→22:21)
[2018-10-14 07:43] LABS: Calcium 8.6 mg/dL (8.4-10.2)
[2018-10-14] MEDS: HumaLOG SUB-Q SCH ×4 (08:29→22:19)
[2018-10-14] MEDS: GLUCOPHAGE PO SCH ×2 (08:33→17:50)
[2018-10-14] MEDS: AMARYL PO SCH (08:33)
--- NOTE | 2018-10-14 09:34 | Progress Note ---
Assessment and Plan Assessment and plan: Patient is 63 years old female with history of diabetes, COPD and arthritis. Patient brought to the emergency room via EMS for evaluation of generalized weakness for the last 3 days. Patient found to be febrile with a temperature of 102.3 and tachycardic. The patient was admitted with diagnosis of sepsis and found to have etiology secondary to Escherichia coli bacteremia from pyelonephritis/UTI. Sepsis. Etiology secondary to Escherichia coli bacteremia. Escherichia coli bacteremia. ID following. Acute kidney injury due to vasomotor nephropathy Cr 1.4 today, better Cont ivf NS @ 75 diarrhea resolved imodium prn Pyelonephritis/UTI. Hypokalemia. Replete potassium. Metabolic acidosis. Bicarbonate drip discontinued per nephrology. Diabetes mellitus type 2. Continue Accu-Cheks and sliding scale as. Hypertension. Monitor BP Disposition. awaiting placement in acute rehab. medically stable for discharge Discussed with supportive employment case manager History Interval history: Feels better, No fever diarrhea, resolved Hospitalist Physical - Physical exam Narrative exam: Gen: Not in acute distress, lying in bed, morbidly obese HEENT: Normocephalic, atraumatic Neck: supple, no JVD Heart: S1 and S2 reg, no murmurs, rubs or gallop Lungs: Clear, no crackles, no wheeze Abd: soft, non tender, non distended, normal BS Ext: No edema, no clubbing, no cyanosis, Neuro: Awake,alert, oriented x 3, moves all ext, non focal Psych:Normal mood - Constitutional Vitals: Temp Pulse Resp BP Pulse Ox 98.9 F 80 18 146/55 93 10/14/18 04:45 10/14/18 04:45 10/14/18 08:55 10/14/18 04:45 10/14/18 04:45 General appearance: Present: no acute distress Results - Labs CBC & Chem 7: 10/13/18 05:15 10/14/18 06:15 Labs: Laboratory Last Values WBC 8.7 K/mm3 (4.5-11.0) 10/13/18 05:15 RBC 3.71 M/mm3 (3.65-5.03) 10/13/18 05:15 Hgb 10.5 gm/dl (10.1-14.3) 10/13/18 05:15 Hct 30.2 % (30.3-42.9) L 10/13/18 05:15 MCV 82 fl (79-97) 10/13/18 05:15 MCH 28 pg (28-32) 10/13/18 05:15 MCHC 35 % (30-34) H 10/13/18 05:15 RDW 16.5 % (13.2-15.2) H 10/13/18 05:15 Plt Count 453 K/mm3 (140-440) H 10/13/18 05:15 Add Manual Diff Complete 10/03/18 04:43 Total Counted 100 10/03/18 04:43 Seg Neutrophils % Global Transportation Manager 10/02/18 04:17 Seg Neuts % (Manual) 87.0 % (40.0-70.0) H 10/03/18 04:43 0 % 10/03/18 04:43 6.0 % (13.4-35.0) L 10/03/18 04:43 Reactive Lymphs % (Man) 1.0 % 10/03/18 04:43 6.0 % (0.0-7.3) 10/03/18 04:43 0 % (0.0-4.3) 10/03/18 04:43 0 % (0.0-1.8) 10/03/18 04:43 0 % 10/03/18 04:43 0 % 10/03/18 04:43 0 % 10/03/18 04:43 0 % 10/03/18 04:43 Nucleated RBC % Not Reportable 10/03/18 04:43 Seg Neutrophils # Man 10.3 K/mm3 (1.8-7.7) H 10/03/18 04:43 Band Neutrophils # 0.0 K/mm3 10/03/18 04:43 0.7 K/mm3 (1.2-5.4) L 10/03/18 04:43 Abs React Lymphs (Man) 0.1 K/mm3 10/03/18 04:43 0.7 K/mm3 (0.0-0.8) 10/03/18 04:43 0.0 K/mm3 (0.0-0.4) 10/03/18 04:43 0.0 K/mm3 (0.0-0.1) 10/03/18 04:43 0.0 K/mm3 10/03/18 04:43 0.0 K/mm3 10/03/18 04:43 0.0 K/mm3 10/03/18 04:43 Blast Cells # 0.0 K/mm3 10/03/18 04:43 WBC Morphology Not Reportable 10/03/18 04:43 Hypersegmented Neuts Not Reportable 10/03/18 04:43 Hyposegmented Neuts Not Reportable 10/03/18 04:43 Hypogranular Neuts Not Reportable 10/03/18 04:43 Not Reportable 10/03/18 04:43 Not Reportable 10/03/18 04:43 Not Reportable 10/03/18 04:43 Not Reportable 10/03/18 04:43 Not Reportable 10/03/18 04:43 Not Reportable 10/03/18 04:43 Consistent w auto 10/03/18 04:43 Not Reportable 10/03/18 04:43 Plt Clumps, EDTA Not Reportable 10/03/18 04:43 Few 10/03/18 04:43 Not Reportable 10/03/18 04:43 Not Reportable 10/03/18 04:43 Plt Morphology Comment Not Reportable 10/03/18 04:43 RBC Morphology Not Reportable 10/03/18 04:43 Dimorphic RBCs Not Reportable 10/03/18 04:43 Not Reportable 10/03/18 04:43 Not Reportable 10/03/18 04:43 1+ 10/03/18 04:43 1+ 10/03/18 04:43 Not Reportable 10/03/18 04:43 Not Reportable 10/03/18 04:43 Not Reportable 10/03/18 04:43 Not Reportable 10/03/18 04:43 Not Reportable 10/03/18 04:43 1+ 10/03/18 04:43 Not Reportable 10/03/18 04:43 Not Reportable 10/03/18 04:43 Not Reportable 10/03/18 04:43 Not Reportable 10/03/18 04:43 Not Reportable 10/03/18 04:43 Not Reportable 10/03/18 04:43 Not Reportable 10/03/18 04:43 Not Reportable 10/03/18 04:43 Not Reportable 10/03/18 04:43 Acanthocytes (Spur) Not Reportable 10/03/18 04:43 Rouleaux Not Reportable 10/03/18 04:43 Not Reportable 10/03/18 04:43 Not Reportable 10/03/18 04:43 Not Reportable 10/03/18 04:43 Not Reportable 10/03/18 04:43 Hem Pathologist Commnt No 10/03/18 04:43 PT 14.4 Sec. (12.2-14.9) 10/02/18 04:36 INR 1.05 (0.87-1.13) 10/02/18 04:36 VBG pH 7.304 (7.320-7.420) L 10/02/18 04:36 Sodium 141 mmol/L (137-145) 10/14/18 06:15 Potassium 4.1 mmol/L (3.6-5.0) 10/14/18 06:15 Chloride 100.7 mmol/L (98-107) 10/14/18 06:15 Carbon Dioxide 26 mmol/L (22-30) 10/14/18 06:15 18 mmol/L 10/14/18 06:15 BUN 15 mg/dL (7-17) 10/14/18 06:15 1.4 mg/dL (0.7-1.2) H 10/14/18 06:15 Estimated GFR 46 ml/min 10/14/18 06:15 11 % 10/14/18 06:15 Glucose 88 mg/dL (65-100) 10/14/18 06:15 POC Glucose 93 (70-105) 10/14/18 07:58 Lactic Acid 1.90 mmol/L (0.7-2.0) 10/02/18 07:33 Calcium 8.6 mg/dL (8.4-10.2) 10/14/18 06:15 Magnesium 1.90 mg/dL (1.7-2.3) 10/06/18 15:55 0.70 mg/dL (0.1-1.2) 10/02/18 04:17 AST 58 units/L (5-40) H 10/02/18 04:17 ALT 26 units/L (7-56) 10/02/18 04:17 146 units/L (35-129) H 10/02/18 04:17 NT-Pro-B Natriuret Pep 1081 pg/mL (0-900) H 10/02/18 04:17 8.6 g/dL (6.3-8.2) H 10/02/18 04:17 2.9 g/dL (3.9-5) L 10/02/18 04:17 0.5 % 10/02/18 04:17 Teresa (Yellow) 10/02/18 04:44 Turbid (Clear) 10/02/18 04:44 5.0 (5.0-7.0) 10/02/18 04:44 Ur Specific [place] 1.015 (1.003-1.030) 10/02/18 04:44 >500 mg/dL (Negative) 10/02/18 04:44 >=500 mg/dL (Negative) 10/02/18 04:44 20 mg/dL (Negative) 10/02/18 04:44 Lg (Negative) 10/02/18 04:44 Neg (Negative) 10/02/18 04:44 Neg (Negative) 10/02/18 04:44 < 2.0 mg/dL (<2.0) 10/02/18 04:44 Ur Leukocyte Esterase Lg (Negative) 10/02/18 04:44 > 182.0 /HPF (0.0-6.0) H 10/02/18 04:44 66.0 /HPF (0.0-6.0) 10/02/18 04:44 U Epithel Cells (Auto) 2.0 /HPF (0-13.0) 10/02/18 04:44 3+ /HPF (Negative) 10/02/18 04:44 3+ /HPF 10/02/18 04:44 2+ /HPF 10/02/18 04:44 108.0 mg/dL (0.1-20.0) H 10/02/18 06:43 Protein/Creatinin Ratio 2.27 10/02/18 06:43 32 mmol/L 10/02/18 06:43 245 mg/dL (5-11.8) H 10/02/18 06:43 Active Medications - Current Medications Current Medications: Generic Name Dose Route Start Last Admin Trade Name Freq PRN Reason Stop Dose Admin Acetaminophen 650 mg 10/02/18 05:42 10/04/18 21:53 Tylenol PO 650 mg Q4H PRN Administration Pain MILD(1-3)/Fever >100.5/[place] Albuterol 2.5 mg 10/02/18 05:42 Proventil IH Q3HRT PRN Shortness Of Breath Amlodipine Besylate 10 mg 10/08/18 10:00 10/13/18 10:14 Norvasc PO 10 mg DAILY KATHY Administration Atorvastatin Calcium 20 mg 10/08/18 22:00 10/13/18 22:11 Lipitor PO 20 mg QHS KATHY Administration Dextrose 50 ml 10/02/18 06:04 D50w (25gm) Syringe IV PRN PRN Hypoglycemia Famotidine 20 mg 10/03/18 10:00 10/13/18 22:11 Pepcid PO 20 mg BID KATHY Administration Gabapentin 100 mg 10/08/18 14:00 10/14/18 06:30 Neurontin PO 100 mg Q8HR KATHY Administration Glimepiride 4 mg 10/08/18 08:00 10/14/18 08:33 Amaryl PO 4 mg QDDIAB KATHY Administration Heparin Sodium (Porcine) 5,000 unit 10/02/18 10:00 10/13/18 22:56 Heparin SUB-Q Not Given Q12HR [facility] Hydralazine HCl 10 mg 10/08/18 10:00 10/12/18 18:42 Apresoline IV 10 mg Q4HR PRN Administration Blood Pressure Sodium Chloride 1,000 mls @ 75 mls/hr 10/13/18 09:00 10/14/18 01:10 Nacl 0.9% 1000 Ml IV 75 mls/hr DIRECT KATHY Administration Insulin Glargine 15 units 10/05/18 22:00 10/13/18 22:09 Lantus SUB-Q 15 units QHS KATHY Administration Insulin Human Lispro 0 unit 10/02/18 07:30 10/14/18 08:29 Humalog SUB-Q Not Given ACHS [facility] Protocol Loperamide HCl 2 mg 10/13/18 18:37 10/13/18 19:09 Imodium PO 2 mg Q2H PRN Administration Diarrhea Metformin HCl 1,000 mg 10/08/18 09:00 10/14/18 08:33 Glucophage PO 1,000 mg BIDDIAB KATHY Administration Ondansetron HCl 4 mg 10/02/18 05:42 Zofran IV Q8H PRN Nausea And Vomiting Sodium Chloride 10 ml 10/02/18 10:00 10/13/18 22:11 Sodium Chloride Flush Syringe 10 Ml IV 10 ml BID KATHY Administration Sodium Chloride 10 ml 10/02/18 05:42 Sodium Chloride Flush Syringe 10 Ml IV PRN PRN LINE FLUSH Spironolactone 25 mg 10/08/18 22:00 10/13/18 22:12 Aldactone PO 25 mg BID KATHY Administration Nutrition/Malnutrition Assess - Dietary Evaluation Nutrition/Malnutrition Findings: Nutrition Notes Start: 10/02/18 15:44 Freq: Status: Active Protocol: Document 10/11/18 15:34 RM (Rec: 10/11/18 15:39 RM [id number]) Nutrition Notes Initial or Follow up Reassessment Current Diagnosis Acute Kidney Injury,Diabetes, Hypertension,Hyperlipidemia Other Pertinent Diagnosis Urosepsis, Generalized weakness, Dehydration, Vagina skin tear Current Diet Renal/Cardiac, Mech soft w/ ground meat and Glucerna 1 daily Labs/Tests Reviewed Pertinent Medications Reviewed Height 5 ft 8 in Weight 171 kg [place] Body Weight (kg) 63.63 BMI 57.3 Subjective/Other Information Pt stated that she ate most of her breakfast and the peaches from her lunch. Also stated that she drinks the Glucerna. Stated she gets full from breakfast and that is why she eats less of the lunch and dinner. Declined offer to increase Glucerna to BID. Percent of energy/protein needs met: 40%/25% Burn Absent Trauma Absent #1 Nutrition Diagnosis Inadequate oral intake As Evidenced by Signs and Symptoms pt meeting 40% of calorie and 25% of protein needs Diagnosis Progress(for reassessment Improved documentation) Is patient on ventilator? No Is Patient Ambulatory and/or Out of Bed No REE-([facility]-confined to bed) 2786.100 Kcal/Kg value to use for calculation 11 Approximate Energy Requirements Using 1881 kcal/Kg Calculation Used for Recommendations Kcal/kg Additional Notes Pro needs: 117-152g (1-1.3g/kg 117 kg adjBW ) Fluid needs per MD Nutrition Intervention Change Diet Order: Continue current Add Supplement/Snack (indicate name/kcal Glucerna Chocolate or /protein ) [place] 1 daily Provides kCal: 220 Provides Protein (gm) 10 Goal #1 Meet at least 75% of calorie and protein needs via PO intakes Follow-Up By: 10/17/18 Additional Comments Follow for PO and ONS intakes
[2018-10-14] MEDS: NORVASC PO SCH (10:13)
[2018-10-14] MEDS: PEPCID PO SCH ×2 (10:13→22:21)
[2018-10-14] MEDS: HEPARIN SUB-Q SCH ×2 (10:13→21:58)
[2018-10-14] MEDS: ALDACTONE PO SCH ×2 (10:13→22:21)
[2018-10-14] MEDS: SODIUM CHLORIDE FLUSH SYRINGE 10 ML IV SCH ×2 (10:14→22:20)
[2018-10-14] MEDS: LANTUS SUB-Q SCH (22:20)
[2018-10-15] MEDS: NACL 0.9% 1000 ML 1,000 ML IV SCH ×2 (02:19→14:37)
[2018-10-15 05:49] LABS: Hematocrit 29.2 % (30.3-42.9); Hemoglobin 10.2 gm/dl (10.1-14.3); Mean Corpuscular HGB Conc 35 % (30-34); Mean Corpuscular Volume 82 fl (79-97); Platelet Count 463 K/mm3 (140-440); Red Blood Count 3.55 M/mm3 (3.65-5.03); Red Cell Distribution Width 16.7 % (13.2-15.2)
[2018-10-15 06:11] LABS: Calcium 8.8 mg/dL (8.4-10.2)
[2018-10-15] MEDS: NEURONTIN PO SCH ×3 (07:13→21:58)
[2018-10-15] MEDS ORDERED: D50W (25GM) Vial IV STA (08:18)
[2018-10-15] MEDS ORDERED: HumuLIN R IV ONE (08:18)
[2018-10-15] MEDS ORDERED: D50W (25GM) Syringe IV STA (08:26)
[2018-10-15] MEDS: HumaLOG SUB-Q SCH ×4 (08:30→22:28)
[2018-10-15] MEDS: GLUCOPHAGE PO SCH ×2 (09:12→18:32)
[2018-10-15] MEDS: AMARYL PO SCH (09:12)
[2018-10-15] MEDS: NORVASC PO SCH (09:25)
[2018-10-15] MEDS: ALDACTONE PO SCH ×2 (09:25→22:26)
[2018-10-15] MEDS: PEPCID PO SCH ×2 (09:25→21:57)
[2018-10-15] MEDS: SODIUM CHLORIDE FLUSH SYRINGE 10 ML IV SCH ×2 (09:26→23:56)
--- NOTE | 2018-10-15 09:35 | Progress Note ---
Subjective Principal diagnosis: jose Interval history: Patient was seen today for follow-up on multiple renal related issues Events of this hospitalization noted Patient denies having any chest pain pressure or shortness of breath Vitals labs intake output medications were reviewed Social history: Reviewed Allergies: Reviewed Family history: Reviewed Physical examination HEENT: Oral mucosa moist no pallor or icterus Neck: Supple no JVD Chest: Clear to auscultation anteriorly CVS: Regular rate and rhythm S1 and S2 heard Abdomen: Soft nontender no suprapubic masses no organomegaly appreciable Extremity: Dry skin less than 1+ peripheral edema Musculoskeletal: No joint effusion noted in knees and ankle Neurological: Alert awake Dermatology: No petechial rashes Psychiatry: No evidence of any agitation and aggression noted Assessment and plan; Acute kidney injury, renal function appears to have stabilized patient was advised to make an appointment in the office for follow-up Patient may have underlying chronic kidney disease her current creatinine is stable around 1.4 Mild anemia hemoglobin is currently 10.2 Urinary tract infection counseling and education was done Patient does have multiple risk factor for underlying chronic kidney disease Possible renal mass? Angiolipoma, please consider a urology evaluation, this can be arranged for an outpatient follow-up as well Hypertension: Continue to monitor and follow mild hyperkalemia potassium 5.2 Adequately counseled and educated this patient in regards to all the renal related issues Will need to make an appointment in the office for follow-up Will sign off for now Objective - Vital Signs Vital signs: Vital Signs - 12hr 10/14/18 10/14/18 10/14/18 21:42 22:00 22:21 Temperature 99.2 F Pulse Rate 80 24 L Pulse Rate [ 80 Right Radial] Respiratory 24 24 Rate Blood Pressure 136/65 136/65 O2 Sat by Pulse 97 97 Oximetry 10/15/18 10/15/18 05:10 09:25 Temperature 98.8 F Pulse Rate 79 82 Pulse Rate [ Right Radial] Respiratory 18 Rate Blood Pressure 128/66 137/61 O2 Sat by Pulse 95 Oximetry - Lab 10/15/18 05:01 10/15/18 05:01 Most recent lab results Calcium 8.8 mg/dL (8.4-10.2) 10/15/18 05:01 Magnesium 1.90 mg/dL (1.7-2.3) 10/06/18 15:55 108.0 mg/dL (0.1-20.0) H 05/28/19 06:43 32 mmol/L 10/02/18 06:43 245 mg/dL (5-11.8) H 10/02/18 06:43 Medications & Allergies - Medications Allergies/Adverse Reactions: Allergies No Known Allergies Allergy (Verified 10/02/18 04:22) Home Medications: Home Medications Medication Instructions Recorded Confirmed Last Taken Type AtorvaSTATin [Lipitor] 20 mg PO QHS 10/03/18 10/03/18 10/01/18 History Gabapentin [Neurontin] 100 mg PO Q8HR 10/03/18 10/03/18 10/01/18 History Glimepiride [Amaryl] 4 mg PO QAM 10/03/18 10/03/18 10/01/18 History Metformin HCl [metFORMIN] 1,000 mg PO BIDAC 10/03/18 10/03/18 10/01/18 History Omeprazole 40 mg PO QAM 10/03/18 10/03/18 10/01/18 History amLODIPine [Norvasc] 10 mg PO DAILY 10/03/18 10/03/18 10/01/18 History Active Medications: Generic Name Dose Route Start Last Admin Trade Name Freq PRN Reason Stop Dose Admin Acetaminophen 650 mg 10/02/18 05:42 10/04/18 21:53 Tylenol PO 650 mg Q4H PRN Administration Pain MILD(1-3)/Fever >100.5/MUHAMMAD Albuterol 2.5 mg 10/02/18 05:42 Proventil IH Q3HRT PRN Shortness Of Breath Amlodipine Besylate 10 mg 10/08/18 10:00 10/15/18 09:25 Norvasc PO 10 mg DAILY KATHY Administration Atorvastatin Calcium 20 mg 10/08/18 22:00 10/14/18 22:21 Lipitor PO 20 mg QHS KATHY Administration Dextrose 50 ml 10/02/18 06:04 D50w (25gm) Syringe IV PRN PRN Hypoglycemia Famotidine 20 mg 10/03/18 10:00 10/15/18 09:25 Pepcid PO 20 mg BID KATHY Administration Gabapentin 100 mg 10/08/18 14:00 10/15/18 07:13 Neurontin PO 100 mg Q8HR KATHY Administration Heparin Sodium (Porcine) 5,000 unit 10/02/18 10:00 10/14/18 21:58 Heparin SUB-Q Not Given Q12HR [facility] Hydralazine HCl 10 mg 10/08/18 10:00 10/12/18 18:42 Apresoline IV 10 mg Q4HR PRN Administration Blood Pressure Sodium Chloride 1,000 mls @ 75 mls/hr 10/13/18 09:00 10/15/18 02:19 Nacl 0.9% 1000 Ml IV 75 mls/hr DIRECT KATHY Administration Insulin Glargine 15 units 10/05/18 22:00 10/14/18 22:20 Lantus SUB-Q 15 units QHS KATHY Administration Insulin Human Lispro 0 unit 10/02/18 07:30 10/15/18 08:30 Humalog SUB-Q Not Given ACHS [facility] Protocol Loperamide HCl 2 mg 10/13/18 18:37 10/13/18 19:09 Imodium PO 2 mg Q2H PRN Administration Diarrhea Metformin HCl 1,000 mg 10/08/18 09:00 10/15/18 09:12 Glucophage PO Not Given BIDDIAB [facility] Ondansetron HCl 4 mg 10/02/18 05:42 Zofran IV Q8H PRN Nausea And Vomiting Sodium Chloride 10 ml 10/02/18 10:00 10/15/18 09:26 Sodium Chloride Flush Syringe 10 Ml IV 10 ml BID KATHY Administration Sodium Chloride 10 ml 10/02/18 05:42 Sodium Chloride Flush Syringe 10 Ml IV PRN PRN LINE FLUSH Spironolactone 25 mg 10/08/18 22:00 10/15/18 09:25 Aldactone PO 25 mg BID KATHY Administration
--- NOTE | 2018-10-15 13:19 | Progress Note ---
Assessment and Plan Assessment and plan: Patient is 63 years old female with history of diabetes, COPD and arthritis. Patient was brought to the emergency room via EMS for evaluation of generalized weakness for 3 days. Patient found to be febrile with a temperature of 102.3 and tachycardic. The patient was admitted with diagnosis of sepsis and found to have etiology secondary to Escherichia coli bacteremia from pyelonephritis/UTI. She also had acute kidney injury due to vasomotor nephropathy with a creatinine of 1.9 on admission, hyperkalemia. She was put on IV fluids IV , antibiotics and she improved. She was evaluated by physical therapy and subacute rehabilitation recommended. She was medically stable, Cr 1.0 and awaiting tra nsfer to subacute rehabilitation. Her labs done on 10/13/2018 showed increasing creatinine to 1.5 therefore started on iv fluids again. Potassium 5.2 today given Insulin dextrose. Nephrology following. To go to acute rehab when Cr and Potassium normal. Sepsis. secondary to Escherichia coli. Completed Abx Zosyn and Ceftriaxone. ID signed off Escherichia coli bacteremia. Completed Abx Acute kidney injury due to vasomotor nephropathy Cr 1.4 today, slightly better Cont ivf NS @ 75 diarrhea resolved imodium prn Pyelonephritis/UTI. Hyperkalemia. Insulin and 50% Dextrose repeat in am Metabolic acidosis, resolved Diabetes mellitus type 2. Continue Accu-Cheks and sliding scale Hypertension. Monitor BP Disposition. awaiting placement in Subacute Rehab. Discussed with rn case manager hospice History Interval history: Feels better, No fever diarrhea, resolved Hospitalist Physical - Physical exam Narrative exam: Gen: Not in acute distress, lying in bed, morbidly obese HEENT: Normocephalic, atraumatic Neck: supple, no JVD Heart: S1 and S2 reg, no murmurs, rubs or gallop Lungs: Clear, no crackles, no wheeze Abd: soft, non tender, non distended, normal BS Ext: No edema, no clubbing, no cyanosis, Neuro: Awake,alert, oriented x 3, moves all ext, non focal Psych:Normal mood - Constitutional Vitals: Temp Pulse Resp BP Pulse Ox 98.8 F 77 20 148/67 95 10/15/18 11:12 10/15/18 11:12 10/15/18 11:12 10/15/18 11:12 10/15/18 11:12 General appearance: Present: no acute distress Results - Labs CBC & Chem 7: 10/15/18 05:01 10/15/18 05:01 Labs: Laboratory Last Values WBC 7.7 K/mm3 (4.5-11.0) 10/15/18 05:01 RBC 3.55 M/mm3 (3.65-5.03) L 10/15/18 05:01 Hgb 10.2 gm/dl (10.1-14.3) 10/15/18 05:01 Hct 29.2 % (30.3-42.9) L 10/15/18 05:01 MCV 82 fl (79-97) 10/15/18 05:01 MCH 29 pg (28-32) 10/15/18 05:01 MCHC 35 % (30-34) H 10/15/18 05:01 RDW 16.7 % (13.2-15.2) H 10/15/18 05:01 Plt Count 463 K/mm3 (140-440) H 10/15/18 05:01 Add Manual Diff Complete 10/03/18 04:43 Total Counted 100 10/03/18 04:43 Seg Neutrophils % Senior Behavior[employer]ist 10/02/18 04:17 Seg Neuts % (Manual) 87.0 % (40.0-70.0) H 10/03/18 04:43 0 % 10/03/18 04:43 6.0 % (13.4-35.0) L 10/03/18 04:43 Reactive Lymphs % (Man) 1.0 % 10/03/18 04:43 6.0 % (0.0-7.3) 10/03/18 04:43 0 % (0.0-4.3) 10/03/18 04:43 0 % (0.0-1.8) 10/03/18 04:43 0 % 10/03/18 04:43 0 % 10/03/18 04:43 0 % 10/03/18 04:43 0 % 10/03/18 04:43 Nucleated RBC % Not Reportable 10/03/18 04:43 Seg Neutrophils # Man 10.3 K/mm3 (1.8-7.7) H 10/03/18 04:43 Band Neutrophils # 0.0 K/mm3 10/03/18 04:43 0.7 K/mm3 (1.2-5.4) L 10/03/18 04:43 Abs React Lymphs (Man) 0.1 K/mm3 10/03/18 04:43 0.7 K/mm3 (0.0-0.8) 10/03/18 04:43 0.0 K/mm3 (0.0-0.4) 10/03/18 04:43 0.0 K/mm3 (0.0-0.1) 10/03/18 04:43 0.0 K/mm3 10/03/18 04:43 0.0 K/mm3 10/03/18 04:43 0.0 K/mm3 10/03/18 04:43 Blast Cells # 0.0 K/mm3 10/03/18 04:43 WBC Morphology Not Reportable 10/03/18 04:43 Hypersegmented Neuts Not Reportable 10/03/18 04:43 Hyposegmented Neuts Not Reportable 10/03/18 04:43 Hypogranular Neuts Not Reportable 10/03/18 04:43 Not Reportable 10/03/18 04:43 Not Reportable 10/03/18 04:43 Not Reportable 10/03/18 04:43 Not Reportable 10/03/18 04:43 Not Reportable 10/03/18 04:43 Not Reportable 10/03/18 04:43 Consistent w auto 10/03/18 04:43 Not Reportable 10/03/18 04:43 Plt Clumps, EDTA Not Reportable 10/03/18 04:43 Few 10/03/18 04:43 Not Reportable 10/03/18 04:43 Not Reportable 10/03/18 04:43 Plt Morphology Comment Not Reportable 10/03/18 04:43 RBC Morphology Not Reportable 10/03/18 04:43 Dimorphic RBCs Not Reportable 10/03/18 04:43 Not Reportable 10/03/18 04:43 Not Reportable 10/03/18 04:43 1+ 10/03/18 04:43 1+ 10/03/18 04:43 Not Reportable 10/03/18 04:43 Not Reportable 10/03/18 04:43 Not Reportable 10/03/18 04:43 Not Reportable 10/03/18 04:43 Not Reportable 10/03/18 04:43 1+ 10/03/18 04:43 Not Reportable 10/03/18 04:43 Not Reportable 10/03/18 04:43 Not Reportable 10/03/18 04:43 Not Reportable 10/03/18 04:43 Not Reportable 10/03/18 04:43 Not Reportable 10/03/18 04:43 Not Reportable 10/03/18 04:43 Not Reportable 10/03/18 04:43 Not Reportable 10/03/18 04:43 Acanthocytes (Spur) Not Reportable 10/03/18 04:43 Rouleaux Not Reportable 10/03/18 04:43 Not Reportable 10/03/18 04:43 Not Reportable 10/03/18 04:43 Not Reportable 10/03/18 04:43 Not Reportable 10/03/18 04:43 Hem Pathologist Commnt No 10/03/18 04:43 PT 14.4 Sec. (12.2-14.9) 10/02/18 04:36 INR 1.05 (0.87-1.13) 10/02/18 04:36 VBG pH 7.304 (7.320-7.420) L 10/02/18 04:36 Sodium 142 mmol/L (137-145) 10/15/18 05:01 Potassium 5.2 mmol/L (3.6-5.0) H D 10/15/18 05:01 Chloride 102.4 mmol/L (98-107) 10/15/18 05:01 Carbon Dioxide 24 mmol/L (22-30) 10/15/18 05:01 21 mmol/L 10/15/18 05:01 BUN 14 mg/dL (7-17) 10/15/18 05:01 1.4 mg/dL (0.7-1.2) H 10/15/18 05:01 Estimated GFR 46 ml/min 10/15/18 05:01 10 % 10/15/18 05:01 Glucose 78 mg/dL (65-100) 10/15/18 05:01 POC Glucose 140 (70-105) H 10/15/18 11:16 9.2 % (4-6) H 10/15/18 05:41 Lactic Acid 1.90 mmol/L (0.7-2.0) 10/02/18 07:33 Calcium 8.8 mg/dL (8.4-10.2) 10/15/18 05:01 Magnesium 1.90 mg/dL (1.7-2.3) 10/06/18 15:55 0.70 mg/dL (0.1-1.2) 10/02/18 04:17 AST 58 units/L (5-40) H 10/02/18 04:17 ALT 26 units/L (7-56) 10/02/18 04:17 146 units/L (35-129) H 10/02/18 04:17 NT-Pro-B Natriuret Pep 1081 pg/mL (0-900) H 10/02/18 04:17 8.6 g/dL (6.3-8.2) H 10/02/18 04:17 2.9 g/dL (3.9-5) L 10/02/18 04:17 0.5 % 10/02/18 04:17 Teresa (Yellow) 10/02/18 04:44 Turbid (Clear) 10/02/18 04:44 5.0 (5.0-7.0) 10/02/18 04:44 Ur Specific [place] 1.015 (1.003-1.030) 10/02/18 04:44 >500 mg/dL (Negative) 10/02/18 04:44 >=500 mg/dL (Negative) 10/02/18 04:44 20 mg/dL (Negative) 10/02/18 04:44 Lg (Negative) 10/02/18 04:44 Neg (Negative) 10/02/18 04:44 Neg (Negative) 10/02/18 04:44 < 2.0 mg/dL (<2.0) 10/02/18 04:44 Ur Leukocyte Esterase Lg (Negative) 10/02/18 04:44 > 182.0 /HPF (0.0-6.0) H 10/02/18 04:44 66.0 /HPF (0.0-6.0) 10/02/18 04:44 U Epithel Cells (Auto) 2.0 /HPF (0-13.0) 10/02/18 04:44 3+ /HPF (Negative) 10/02/18 04:44 3+ /HPF 10/02/18 04:44 2+ /HPF 10/02/18 04:44 108.0 mg/dL (0.1-20.0) H 10/02/18 06:43 Protein/Creatinin Ratio 2.27 10/02/18 06:43 32 mmol/L 10/02/18 06:43 245 mg/dL (5-11.8) H 10/02/18 06:43 Active Medications - Current Medications Current Medications: Generic Name Dose Route Start Last Admin Trade Name Freq PRN Reason Stop Dose Admin Acetaminophen 650 mg 10/02/18 05:42 10/04/18 21:53 Tylenol PO 650 mg Q4H PRN Administration Pain MILD(1-3)/Fever >100.5/[place]UHAMMAD Albuterol 2.5 mg 10/02/18 05:42 Proventil IH Q3HRT PRN Shortness Of Breath Amlodipine Besylate 10 mg 10/08/18 10:00 10/15/18 09:25 Norvasc PO 10 mg DAILY KATHY Administration Atorvastatin Calcium 20 mg 10/08/18 22:00 10/14/18 22:21 Lipitor PO 20 mg QHS KATHY Administration Dextrose 50 ml 10/02/18 06:04 D50w (25gm) Syringe IV PRN PRN Hypoglycemia Famotidine 20 mg 10/03/18 10:00 10/15/18 09:25 Pepcid PO 20 mg BID KATHY Administration Gabapentin 100 mg 10/08/18 14:00 10/15/18 07:13 Neurontin PO 100 mg Q8HR KATHY Administration Heparin Sodium (Porcine) 5,000 unit 10/02/18 10:00 10/14/18 21:58 Heparin SUB-Q Not Given Q12HR KATHY Hydralazine HCl 10 mg 10/08/18 10:00 10/12/18 18:42 Apresoline IV 10 mg Q4HR PRN Administration Blood Pressure Sodium Chloride 1,000 mls @ 75 mls/hr 10/13/18 09:00 10/15/18 02:19 Nacl 0.9% 1000 Ml IV 75 mls/hr DIRECT KATHY Administration Insulin Glargine 15 units 10/05/18 22:00 10/14/18 22:20 Lantus SUB-Q 15 units QHS KATHY Administration Insulin Human Lispro 0 unit 10/02/18 07:30 10/15/18 08:30 Humalog SUB-Q Not Given ACHS [facility] Protocol Loperamide HCl 2 mg 10/13/18 18:37 10/13/18 19:09 Imodium PO 2 mg Q2H PRN Administration Diarrhea Metformin HCl 1,000 mg 10/08/18 09:00 10/15/18 09:12 Glucophage PO Not Given BIDDIAB [facility] Ondansetron HCl 4 mg 10/02/18 05:42 Zofran IV Q8H PRN Nausea And Vomiting Sodium Chloride 10 ml 10/02/18 10:00 10/15/18 09:26 Sodium Chloride Flush Syringe 10 Ml IV 10 ml BID KATHY Administration Sodium Chloride 10 ml 10/02/18 05:42 Sodium Chloride Flush Syringe 10 Ml IV PRN PRN LINE FLUSH Spironolactone 25 mg 10/08/18 22:00 10/15/18 09:25 Aldactone PO 25 mg BID KATHY Administration Nutrition/Malnutrition Assess - Dietary Evaluation Nutrition/Malnutrition Findings: Nutrition Notes Start: 10/02/18 15:44 Freq: Status: Active Protocol: Document 10/11/18 15:34 RM (Rec: 10/11/18 15:39 RM [id number]) Nutrition Notes Initial or Follow up Reassessment Current Diagnosis Acute Kidney Injury,Diabetes, Hypertension,Hyperlipidemia Other Pertinent Diagnosis Urosepsis, Generalized weakness, Dehydration, Vagina skin tear Current Diet Renal/Cardiac, Mech soft w/ ground meat and Glucerna 1 daily Labs/Tests Reviewed Pertinent Medications Reviewed Height 5 ft 8 in Weight 171 kg [place] Body Weight (kg) 63.63 BMI 57.3 Subjective/Other Information Pt stated that she ate most of her breakfast and the peaches from her lunch. Also stated that she drinks the Glucerna. Stated she gets full from breakfast and that is why she eats less of the lunch and dinner. Declined offer to increase Glucerna to BID. Percent of energy/protein needs met: 40%/25% Burn Absent Trauma Absent #1 Nutrition Diagnosis Inadequate oral intake As Evidenced by Signs and Symptoms pt meeting 40% of calorie and 25% of protein needs Diagnosis Progress(for reassessment Improved documentation) Is patient on ventilator? No Is Patient Ambulatory and/or Out of Bed No REE-([facility]-confined to bed) 2786.100 Kcal/Kg value to use for calculation 11 Approximate Energy Requirements Using 1881 kcal/Kg Calculation Used for Recommendations Kcal/kg Additional Notes Pro needs: 117-152g (1-1.3g/kg 117 kg adjBW ) Fluid needs per MD Nutrition Intervention Change Diet Order: Continue current Add Supplement/Snack (indicate name/kcal Glucerna Chocolate or /protein ) [place] 1 daily Provides kCal: 220 Provides Protein (gm) 10 Goal #1 Meet at least 75% of calorie and protein needs via PO intakes Follow-Up By: 10/17/18 Additional Comments Follow for PO and ONS intakes
[2018-10-15] MEDS: HEPARIN SUB-Q SCH ×2 (14:36→22:06)
[2018-10-15 20:52] LABS: Aldo/Plasma Renin Act Ratio 2.8 Ratio (0.9-28.9)
[2018-10-15] MEDS: LANTUS SUB-Q SCH (22:31)
[2018-10-16] MEDS: ALDACTONE PO SCH ×2 (00:35→10:23)
[2018-10-16] MEDS: NEURONTIN PO SCH ×2 (05:54→16:24)
[2018-10-16] MEDS: HumaLOG SUB-Q SCH ×3 (07:56→17:53)
[2018-10-16 08:34] LABS: Calcium 9.2 mg/dL (8.4-10.2)
[2018-10-16] MEDS: GLUCOPHAGE PO SCH ×2 (08:46→17:53)
[2018-10-16] MEDS: PEPCID PO SCH (10:23)
[2018-10-16] MEDS: NORVASC PO SCH (10:23)
[2018-10-16] MEDS: HEPARIN SUB-Q SCH (10:26)
--- NOTE | 2018-10-16 11:10 | Discharge Summary ---
Providers - Providers Date of Admission: 10/02/18 05:42 Date of discharge: 10/16/18 Attending physician: KENYA RENEE 10/02/18 06:04 Consult to Dietitian/Nutrition [CONS] Routine Physician Instructions: Reason For Exam: Reason for Consult: Diet education 10/02/18 09:10 Consult to Physician [CONS] Routine Comment: Consulting Provider: GISSELL LAFLEUR Physician Instructions: Reason For Exam: ARF 10/03/18 11:49 Occupational Therapy Evaluate and Treat [CONS] Routine Comment: Reason For Exam: WEAKNESS Physical Therapy Evaluation and Treat [CONS] Routine Comment: Reason For Exam: WEAKNESS 10/04/18 12:14 Consult to Physician [CONS] Routine Comment: Consulting Provider: JOSELO NICHOLS Physician Instructions: Reason For Exam: GNR bacteremia 10/07/18 07:03 Consult to Wound/ET Nurse [CONS] Urgent Reason For Exam: wound eval at [facility] area. Primary care physician: INSURANCE PROFESSIONAL Hospitalization Reason for admission: sepsis Condition: Stable Hospital course: Patient is 63 years old female with history of diabetes, COPD and arthritis. Patient was brought to the emergency room via EMS for evaluation of generalized weakness for 3 days. Patient found to be febrile with a temperature of 102.3 and tachycardic. The patient was admitted with diagnosis of sepsis and found to have etiology secondary to Escherichia coli bacteremia from pyelonephritis/UTI. She also had acute kidney injury due to vasomotor nephropathy with a creatinine of 1.9 on admission, hyperkalemia. She was put on IV fluids IV , antibiotics and she improved. She was evaluated by physical therapy and subacute rehabilitation recommended. She was medically stable, Cr 1.0 and awaiting transfer to subacute rehabilitation. Her labs done on 10/13/2018 showed increasing creatinine to 1.5 therefore started on iv fluids again. The patient's kidney function eventually stabilized and she is felt to have received maximal hospital benefit for discharge. Dedicated discharge time of 32 minutes. Disposition: [id number] SN[facility] Time spent for discharge: 32 - Discharge Diagnoses (1) Acute hyperkalemia Status: Acute (2) Acute renal failure Status: Acute (3) Metabolic alkalosis Status: Acute (4) Sepsis Status: Acute (5) UTI (urinary tract infection) Status: Acute Core Measure Documentation - Palliative Care Palliative Care/ Comfort Measures: Not Applicable - Core Measures Any of the following diagnoses?: none Exam - Constitutional Vitals: Temp Pulse Resp BP Pulse Ox 98.8 F 76 20 173/76 92 10/15/18 23:09 10/16/18 10:23 10/15/18 23:09 10/16/18 10:23 10/15/18 23:09 General appearance: Present: no acute distress, well-nourished - EENT Eyes: Present: PERRL ENT: hearing intact, clear oral mucosa - Neck Neck: Present: supple, normal ROM - Respiratory Respiratory effort: normal Respiratory: bilateral: CTA - Cardiovascular Heart Sounds: Present: S1 & S2. Absent: rub, click - Extremities Extremities: pulses symmetrical, No edema Peripheral Pulses: within normal limits - Abdominal General gastrointestinal: Present: soft, non-tender, non-distended, normal bowel sounds Female genitourinary: Present: normal - Integumentary Integumentary: Present: clear, warm, dry - Musculoskeletal Musculoskeletal: gait normal, strength equal bilaterally - Psychiatric Psychiatric: appropriate mood/affect, intact judgment & insight - Neurologic Neurologic: CNII-XII intact, moves all extremities Plan Activity: advance as tolerated Weight Bearing Status: Weight Bear as Tolerated Diet: low fat, low cholesterol, low salt Follow up with: PRIMARY CARE, [Primary Care Provider] - 3-5 Days GISSELL LAFLEUR MD [Staff Physician] - 7 Days ISABEL KINNEY MD [Staff Physician] - 7 Days
[2018-10-16] MEDS: SODIUM CHLORIDE FLUSH SYRINGE 10 ML IV SCH (16:24)
[2018-10-17] MEDS: HumaLOG SUB-Q SCH ×3 (05:10→11:46)
[2018-10-17] MEDS: HEPARIN SUB-Q SCH ×2 (05:10→11:35)
[2018-10-17] MEDS: SODIUM CHLORIDE FLUSH SYRINGE 10 ML IV SCH ×2 (05:10→11:36)
[2018-10-17] MEDS: ALDACTONE PO SCH ×2 (05:10→11:35)
[2018-10-17] MEDS: NEURONTIN PO SCH ×2 (05:11→06:14)
[2018-10-17] MEDS: LANTUS SUB-Q SCH (05:11)
[2018-10-17] MEDS: PEPCID PO SCH ×2 (05:11→11:35)
--- NOTE | 2018-10-17 11:17 | Progress Note ---
Assessment and Plan Assessment and plan: Sepsis. secondary to Escherichia coli. Completed Abx Zosyn and Ceftriaxone. ID signed off Escherichia coli bacteremia. Completed Abx Acute kidney injury due to vasomotor nephropathy Cr 1.4 today, slightly better Cont ivf NS @ 75 diarrhea resolved imodium prn Pyelonephritis/UTI. Hyperkalemia. Insulin and 50% Dextrose repeat in am Metabolic acidosis, resolved Diabetes mellitus type 2. Continue Accu-Cheks and sliding scale Hypertension. Monitor BP Disposition. awaiting placement in Subacute Rehab. Discussed with caser - Patient Problems (1) Acute hyperkalemia Current Visit: Yes Status: Acute (2) Acute renal failure Current Visit: Yes Status: Acute (3) Metabolic alkalosis Current Visit: Yes Status: Acute (4) Sepsis Current Visit: Yes Status: Acute (5) UTI (urinary tract infection) Current Visit: Yes Status: Acute History Interval history: Patient is 63 years old female with history of diabetes, COPD and arthritis. Patient brought to the emergency room via EMS for evaluation of generalized weakness for the last 3 days. Patient found to be febrile with a temperature of 102.3 and tachycardic. The patient was admitted with diagnosis of sepsis and found to have etiology secondary to Escherichia coli bacteremia from probable UTI. Hospitalist Physical - Constitutional Vitals: Temp Pulse Resp BP Pulse Ox 99.0 F 83 20 169/69 93 10/17/18 05:13 10/17/18 05:13 10/17/18 05:13 10/17/18 05:13 10/17/18 05:13 General appearance: Present: no acute distress, well-nourished - EENT Eyes: Present: PERRL, EOM intact ENT: hearing intact, clear oral mucosa, dentition normal - Neck Neck: Present: supple, normal ROM - Respiratory Respiratory effort: normal Respiratory: bilateral: CTA - Cardiovascular Rhythm: regular Heart Sounds: Present: S1 & S2. Absent: gallop, rub - Extremities Extremities: no ischemia, No edema, Full ROM - Abdominal General gastrointestinal: soft, non-tender, non-distended, normal bowel sounds - Integumentary Integumentary: Present: clear, warm, dry - Neurologic Neurologic: CNII-XII intact, moves all extremities Results - Labs CBC & Chem 7: 10/15/18 05:01 10/16/18 07:42 Labs: Laboratory Last Values WBC 7.7 K/mm3 (4.5-11.0) 10/15/18 05:01 RBC 3.55 M/mm3 (3.65-5.03) L 10/15/18 05:01 Hgb 10.2 gm/dl (10.1-14.3) 10/15/18 05:01 Hct 29.2 % (30.3-42.9) L 10/15/18 05:01 MCV 82 fl (79-97) 10/15/18 05:01 MCH 29 pg (28-32) 10/15/18 05:01 MCHC 35 % (30-34) H 10/15/18 05:01 RDW 16.7 % (13.2-15.2) H 10/15/18 05:01 Plt Count 463 K/mm3 (140-440) H 10/15/18 05:01 Add Manual Diff Complete 10/03/18 04:43 Total Counted 100 10/03/18 04:43 Seg Neutrophils % Desk Top Publisher 10/02/18 04:17 Seg Neuts % (Manual) 87.0 % (40.0-70.0) H 10/03/18 04:43 0 % 10/03/18 04:43 6.0 % (13.4-35.0) L 10/03/18 04:43 Reactive Lymphs % (Man) 1.0 % 10/03/18 04:43 6.0 % (0.0-7.3) 10/03/18 04:43 0 % (0.0-4.3) 10/03/18 04:43 0 % (0.0-1.8) 10/03/18 04:43 0 % 10/03/18 04:43 0 % 10/03/18 04:43 0 % 10/03/18 04:43 0 % 10/03/18 04:43 Nucleated RBC % Not Reportable 10/03/18 04:43 Seg Neutrophils # Man 10.3 K/mm3 (1.8-7.7) H 10/03/18 04:43 Band Neutrophils # 0.0 K/mm3 10/03/18 04:43 0.7 K/mm3 (1.2-5.4) L 10/03/18 04:43 Abs React Lymphs (Man) 0.1 K/mm3 10/03/18 04:43 0.7 K/mm3 (0.0-0.8) 10/03/18 04:43 0.0 K/mm3 (0.0-0.4) 10/03/18 04:43 0.0 K/mm3 (0.0-0.1) 10/03/18 04:43 0.0 K/mm3 10/03/18 04:43 0.0 K/mm3 10/03/18 04:43 0.0 K/mm3 10/03/18 04:43 Blast Cells # 0.0 K/mm3 10/03/18 04:43 WBC Morphology Not Reportable 10/03/18 04:43 Hypersegmented Neuts Not Reportable 10/03/18 04:43 Hyposegmented Neuts Not Reportable 10/03/18 04:43 Hypogranular Neuts Not Reportable 10/03/18 04:43 Not Reportable 10/03/18 04:43 Not Reportable 10/03/18 04:43 Not Reportable 10/03/18 04:43 Not Reportable 10/03/18 04:43 Not Reportable 10/03/18 04:43 Not Reportable 10/03/18 04:43 Consistent w auto 10/03/18 04:43 Not Reportable 10/03/18 04:43 Plt Clumps, EDTA Not Reportable 10/03/18 04:43 Few 10/03/18 04:43 Not Reportable 10/03/18 04:43 Not Reportable 10/03/18 04:43 Plt Morphology Comment Not Reportable 10/03/18 04:43 RBC Morphology Not Reportable 10/03/18 04:43 Dimorphic RBCs Not Reportable 10/03/18 04:43 Not Reportable 10/03/18 04:43 Not Reportable 10/03/18 04:43 1+ 10/03/18 04:43 1+ 10/03/18 04:43 Not Reportable 10/03/18 04:43 Not Reportable 10/03/18 04:43 Not Reportable 10/03/18 04:43 Not Reportable 10/03/18 04:43 Not Reportable 10/03/18 04:43 1+ 10/03/18 04:43 Not Reportable 10/03/18 04:43 Not Reportable 10/03/18 04:43 Not Reportable 10/03/18 04:43 Not Reportable 10/03/18 04:43 Not Reportable 10/03/18 04:43 Not Reportable 10/03/18 04:43 Not Reportable 10/03/18 04:43 Not Reportable 10/03/18 04:43 Not Reportable 10/03/18 04:43 Acanthocytes (Spur) Not Reportable 10/03/18 04:43 Rouleaux Not Reportable 10/03/18 04:43 Not Reportable 10/03/18 04:43 Not Reportable 10/03/18 04:43 Not Reportable 10/03/18 04:43 Not Reportable 10/03/18 04:43 Hem Pathologist Commnt No 10/03/18 04:43 PT 14.4 Sec. (12.2-14.9) 10/02/18 04:36 INR 1.05 (0.87-1.13) 10/02/18 04:36 VBG pH 7.304 (7.320-7.420) L 10/02/18 04:36 Sodium 139 mmol/L (137-145) 10/16/18 07:42 Potassium 4.9 mmol/L (3.6-5.0) 10/16/18 07:42 Chloride 102.4 mmol/L (98-107) 10/16/18 07:42 Carbon Dioxide 25 mmol/L (22-30) 10/16/18 07:42 17 mmol/L 10/16/18 07:42 BUN 12 mg/dL (7-17) 10/16/18 07:42 1.2 mg/dL (0.7-1.2) 10/16/18 07:42 Estimated GFR 55 ml/min 10/16/18 07:42 10 % 10/16/18 07:42 Glucose 106 mg/dL (65-100) H 10/16/18 07:42 POC Glucose 133 (70-105) H 10/17/18 07:53 9.2 % (4-6) H 10/15/18 05:41 Lactic Acid 1.90 mmol/L (0.7-2.0) 10/02/18 07:33 Calcium 9.2 mg/dL (8.4-10.2) 10/16/18 07:42 Magnesium 1.90 mg/dL (1.7-2.3) 10/06/18 15:55 0.70 mg/dL (0.1-1.2) 10/02/18 04:17 AST 58 units/L (5-40) H 10/02/18 04:17 ALT 26 units/L (7-56) 10/02/18 04:17 146 units/L (35-129) H 10/02/18 04:17 NT-Pro-B Natriuret Pep 1081 pg/mL (0-900) H 10/02/18 04:17 8.6 g/dL (6.3-8.2) H 10/02/18 04:17 2.9 g/dL (3.9-5) L 10/02/18 04:17 0.5 % 10/02/18 04:17 0.72 ng/mL/h (0.25-5.82) 10/08/18 13:42 2 ng/dL () 10/08/18 13:42 Aldosterone/Renin Dir 2.8 Ratio (0.9-28.9) 10/08/18 13:42 Teresa (Yellow) 10/02/18 04:44 Turbid (Clear) 10/02/18 04:44 5.0 (5.0-7.0) 10/02/18 04:44 Ur Specific [place] 1.015 (1.003-1.030) 10/02/18 04:44 >500 mg/dL (Negative) 10/02/18 04:44 >=500 mg/dL (Negative) 10/02/18 04:44 20 mg/dL (Negative) 10/02/18 04:44 Lg (Negative) 10/02/18 04:44 Neg (Negative) 10/02/18 04:44 Neg (Negative) 10/02/18 04:44 < 2.0 mg/dL (<2.0) 10/02/18 04:44 Ur Leukocyte Esterase Lg (Negative) 10/02/18 04:44 > 182.0 /HPF (0.0-6.0) H 10/02/18 04:44 66.0 /HPF (0.0-6.0) 10/02/18 04:44 U Epithel Cells (Auto) 2.0 /HPF (0-13.0) 10/02/18 04:44 3+ /HPF (Negative) 10/02/18 04:44 3+ /HPF 10/02/18 04:44 2+ /HPF 10/02/18 04:44 108.0 mg/dL (0.1-20.0) H 10/02/18 06:43 Protein/Creatinin Ratio 2.27 10/02/18 06:43 32 mmol/L 10/02/18 06:43 245 mg/dL (5-11.8) H 10/02/18 06:43 Active Medications - Current Medications Current Medications: Generic Name Dose Route Start Last Admin Trade Name Freq PRN Reason Stop Dose Admin Acetaminophen 650 mg 10/02/18 05:42 10/04/18 21:53 Tylenol PO 650 mg Q4H PRN Administration Pain MILD(1-3)/Fever >100.5/MUHAMMAD Albuterol 2.5 mg 10/02/18 05:42 Proventil IH Q3HRT PRN Shortness Of Breath Amlodipine Besylate 10 mg 10/08/18 10:00 10/16/18 10:23 Norvasc PO 10 mg DAILY KATHY Administration Atorvastatin Calcium 20 mg 10/08/18 22:00 10/17/18 05:11 Lipitor PO Not Given QHS KATHY Dextrose 50 ml 10/02/18 06:04 D50w (25gm) Syringe IV PRN PRN Hypoglycemia Famotidine 20 mg 10/03/18 10:00 10/17/18 05:11 Pepcid PO Not Given BID KATHY Gabapentin 100 mg 10/08/18 14:00 10/17/18 06:14 Neurontin PO 100 mg Q8HR KATHY Administration Heparin Sodium (Porcine) 5,000 unit 10/02/18 10:00 10/17/18 05:10 Heparin SUB-Q Not Given Q12HR KATHY Hydralazine HCl 10 mg 10/08/18 10:00 10/12/18 18:42 Apresoline IV 10 mg Q4HR PRN Administration Blood Pressure Sodium Chloride 1,000 mls @ 75 mls/hr 10/13/18 09:00 10/15/18 14:37 Nacl 0.9% 1000 Ml IV 75 mls/hr DIRECT KATHY Administration Insulin Glargine 15 units 10/05/18 22:00 10/17/18 05:11 Lantus SUB-Q Not Given QHS [facility] Insulin Human Lispro 0 unit 10/02/18 07:30 10/17/18 08:26 Humalog SUB-Q Not Given ACHS [facility] Protocol Loperamide HCl 2 mg 10/13/18 18:37 10/13/18 19:09 Imodium PO 2 mg Q2H PRN Administration Diarrhea Metformin HCl 1,000 mg 10/08/18 09:00 10/16/18 17:53 Glucophage PO 1,000 mg BIDDIAB KATHY Administration Ondansetron HCl 4 mg 10/02/18 05:42 Zofran IV Q8H PRN Nausea And Vomiting Sodium Chloride 10 ml 10/02/18 10:00 10/17/18 05:10 Sodium Chloride Flush Syringe 10 Ml IV Not Given BID KATHY Sodium Chloride 10 ml 10/02/18 05:42 Sodium Chloride Flush Syringe 10 Ml IV PRN PRN LINE FLUSH Spironolactone 25 mg 10/08/18 22:00 10/17/18 05:10 Aldactone PO Not Given BID [facility] Nutrition/Malnutrition Assess - Dietary Evaluation Nutrition/Malnutrition Findings: Nutrition Notes Start: 10/02/18 15:44 Freq: Status: Active Protocol: Document 10/11/18 15:34 RM (Rec: 10/11/18 15:39 RM [id number]) Nutrition Notes Initial or Follow up Reassessment Current Diagnosis Acute Kidney Injury,Diabetes, Hypertension,Hyperlipidemia Other Pertinent Diagnosis Urosepsis, Generalized weakness, Dehydration, Vagina skin tear Current Diet Renal/Cardiac, Mech soft w/ ground meat and Glucerna 1 daily Labs/Tests Reviewed Pertinent Medications Reviewed Height 5 ft 8 in Weight 171 kg [place] Body Weight (kg) 63.63 BMI 57.3 Subjective/Other Information Pt stated that she ate most of her breakfast and the peaches from her lunch. Also stated that she drinks the Glucerna. Stated she gets full from breakfast and that is why she eats less of the lunch and dinner. Declined offer to increase Glucerna to BID. Percent of energy/protein needs met: 40%/25% Burn Absent Trauma Absent #1 Nutrition Diagnosis Inadequate oral intake As Evidenced by Signs and Symptoms pt meeting 40% of calorie and 25% of protein needs Diagnosis Progress(for reassessment Improved documentation) Is patient on ventilator? No Is Patient Ambulatory and/or Out of Bed No REE-([place]-confined to bed) 2786.100 Kcal/Kg value to use for calculation 11 Approximate Energy Requirements Using 1881 kcal/Kg Calculation Used for Recommendations Kcal/kg Additional Notes Pro needs: 117-152g (1-1.3g/kg 117 kg adjBW ) Fluid needs per MD Nutrition Intervention Change Diet Order: Continue current Add Supplement/Snack (indicate name/kcal Glucerna Chocolate or /protein ) [place] 1 daily Provides kCal: 220 Provides Protein (gm) 10 Goal #1 Meet at least 75% of calorie and protein needs via PO intakes Follow-Up By: 10/17/18 Additional Comments Follow for PO and ONS intakes
[2018-10-17] MEDS: NORVASC PO SCH (11:35)
[2018-10-17] MEDS: GLUCOPHAGE PO SCH (11:35)
[2018-10-17 13:49] VITALS: BP 143/74
== END 2018-10-17 15:15 | DRG 871 ==
LOC: SUATTDRO 03:49 → ED 03:49 → 4A 05:42 → 3A 10-12 10:42
PROVIDERS: ADMIT Internal Medicine; ATTEND Hospitalist
DX: A41.51 Sepsis due to Escherichia coli [E. coli] (principal); N17.0 Acute kidney failure with tubular necrosis; N10 Acute pyelonephritis; E87.1 Hypo-osmolality and hyponatremia; Z68.43 Body mass index [BMI] 50.0-59.9, adult; E87.5 Hyperkalemia; E11.9 Type 2 diabetes mellitus without complications; J44.9 Chronic obstructive pulmonary disease, unspecified; M19.90 Unspecified osteoarthritis, unspecified site; Z87.891 Personal history of nicotine dependence; Z71.3 Dietary counseling and surveillance; E78.5 Hyperlipidemia, unspecified; Z79.84 Long term (current) use of oral hypoglycemic drugs; I11.0 Hypertensive heart disease with heart failure; I50.9 Heart failure, unspecified; E86.0 Dehydration; Z83.3 Family history of diabetes mellitus; E66.01 Morbid (severe) obesity due to excess calories
CPT/HCPCS: 36415; 71045; 74177; 76770; 76857; 80048; 80053; 81001; 82088; 82140; 82570; 82805; 82962; 83036; 83735; 83880; 84156; 84300; 85007; 85025; 85027; 85610; 87040; 87076; 87086; 87186; 93005; 93010; 94760; G0378; A9270-GY; J0360; J0696; J1644; J1815; J2543; J7030; J7040; J7070; Q9967

== ENCOUNTER 2018-10-28 14:41 | Inpatient (IN) | payer BC ==
[2018-10-28 15:37] LABS: Basophils # (Auto) 0.1 K/mm3 (0.0-0.1); Basophils % (Auto) 1.5 % (0.0-1.8); Eosinophils # (Auto) 0.2 K/mm3 (0.0-0.4); Eosinophils % (Auto) 3.7 % (0.0-4.3); Hematocrit 31.9 % (30.3-42.9); Hemoglobin 10.8 gm/dl (10.1-14.3); Lymphocytes # (Auto) 1.2 K/mm3 (1.2-5.4); Lymphocytes % (Auto) 19.7 % (13.4-35.0); Mean Corpuscular HGB Conc 34 % (30-34); Mean Corpuscular Volume 85 fl (79-97); Monocytes # (Auto) 0.7 K/mm3 (0.0-0.8); Monocytes % (Auto) 11.5 % (0.0-7.3); Platelet Count 305 K/mm3 (140-440); Red Blood Count 3.76 M/mm3 (3.65-5.03); Red Cell Distribution Width 17.3 % (13.2-15.2)
[2018-10-28 16:08] LABS: Partial Thromboplastin Time 27.1 Sec. (24.2-36.6)
[2018-10-28] MEDS ORDERED: LOVENOX SUB-Q ONE (16:08)
--- NOTE | 2018-10-28 16:09 | Emergency Department Report ---
ED Extremity Problem HPI - General Chief complaint: Extremity Problem,Nontraumatic Stated complaint: DVT Time Seen by Provider: 10/28/18 15:01 Source: patient Mode of arrival: Stretcher Limitations: No Limitations - History of Present Illness Initial comments: 63-year-old female with a past medical history of COPD with when necessary oxygen use, diabetes, GERD, and hypertension presents to the hospital from [facility] with diagnoses of acute left leg dvt. Patient was in physical therapy and can actually complained of right leg pain at the rehabilitation center and had an outpt dvt study of both legs confirming left leg dvt of FV to PTV. Patient denies previous history of PE/DVT. She also denies left leg pain, shortness of breath, or chest pain. As per medical record review patient was just admitted here September 24 until October 16 for UTI with Escherichia coli bacteremia, acute renal insufficiency, and hyperkalemia. Severity scale (0 -10): 0 - Related Data Home Medications Medication Instructions Recorded Confirmed Last Taken AtorvaSTATin [Lipitor] 20 mg PO QHS 10/03/18 10/03/18 10/01/18 Gabapentin [Neurontin] 100 mg PO Q8HR 10/03/18 10/03/18 10/01/18 Glimepiride [Amaryl] 4 mg PO QAM 10/03/18 10/03/18 10/01/18 Metformin HCl [metFORMIN] 1,000 mg PO BIDAC 10/03/18 10/03/18 10/01/18 Omeprazole 40 mg PO QAM 10/03/18 10/03/18 10/01/18 amLODIPine [Norvasc] 10 mg PO DAILY 10/03/18 10/03/18 10/01/18 Previous Rx's Medication Instructions Recorded Last Taken Type ALBUTEROL NEB's [Proventil 0.083% 2.5 mg IH Q3HRT PRN nebu 10/16/18 Unknown Rx NEBS] Acetaminophen [Acetaminophen TAB] 650 mg PO Q4H PRN tablet 10/16/18 Unknown Rx Insulin Glargine [Lantus VIAL] 15 units SUB-Q QHS units 10/16/18 Unknown Rx Lispro Insulin [HumaLOG] 0 unit SUB-Q ACHS units 10/16/18 Unknown Rx Spironolactone [Aldactone] 25 mg PO BID tablet 10/16/18 Unknown Rx metFORMIN [Glucophage] 1,000 mg PO BIDDIAB tablet 10/16/18 Unknown Rx Allergies Allergy/AdvReac Type Severity Reaction Status Date / Time No Known Allergies Allergy Verified 10/02/18 04:22 ED Review of Systems ROS: Stated complaint: DVT Other details as noted in HPI Comment: All other systems reviewed and negative ED Past Medical Hx - Past Medical History Previous Medical History?: Yes Hx Hypertension: Yes Hx Diabetes: Yes (Type II) Hx GERD: Yes Hx COPD: Yes - Surgical History Past Surgical History?: Yes Additional Surgical History: Tonsillectomy - Social History Smoking Status: Former Smoker Substance Use Type: None - Medications Home Medications: Home Medications Medication Instructions Recorded Confirmed Last Taken Type AtorvaSTATin [Lipitor] 20 mg PO QHS 10/03/18 10/03/18 10/01/18 History Gabapentin [Neurontin] 100 mg PO Q8HR 10/03/18 10/03/18 10/01/18 History Glimepiride [Amaryl] 4 mg PO QAM 10/03/18 10/03/18 10/01/18 History Metformin HCl [metFORMIN] 1,000 mg PO BIDAC 10/03/18 10/03/18 10/01/18 History Omeprazole 40 mg PO QAM 10/03/18 10/03/18 10/01/18 History amLODIPine [Norvasc] 10 mg PO DAILY 10/03/18 10/03/18 10/01/18 History ALBUTEROL NEB's [Proventil 0.083% 2.5 mg IH Q3HRT PRN nebu 10/16/18 Unknown Rx NEBS] Acetaminophen [Acetaminophen TAB] 650 mg PO Q4H PRN tablet 10/16/18 Unknown Rx Insulin Glargine [Lantus VIAL] 15 units SUB-Q QHS units 10/16/18 Unknown Rx Lispro Insulin [HumaLOG] 0 unit SUB-Q ACHS units 10/16/18 Unknown Rx Spironolactone [Aldactone] 25 mg PO BID tablet 10/16/18 Unknown Rx metFORMIN [Glucophage] 1,000 mg PO BIDDIAB tablet 10/16/18 Unknown Rx ED Physical Exam - General Limitations: No Limitations - Other Other exam information: General: No limitations, patient is alert in no acute distress Head exam: Atraumatic, normocephalic Eyes exam: Normal appearance ENT: Moist mucous membrane Neck exam: Normal inspection Respiratory exam: Clear to auscultation bilateral, no wheezes, rales, crackles Cardiovascular: Normal rate and rhythm, normal heart sounds Abdomen: Soft, nondistended, and nontender, with normal bowel sounds, no rebound, or guarding Extremity: Bilateral lower extremity edema equal, no calf tenderness Back: Normal Inspection Neurologic: Alert, oriented x3, cranial nerves intact, no motor or sensory deficit Psychiatric: normal affect, normal mood Skin: Warm, dry, intact ED Course Vital Signs 10/28/18 10/28/18 15:06 15:09 Temperature 99.3 F Pulse Rate 79 Respiratory 20 20 Rate Blood Pressure 196/78 [Right] O2 Sat by Pulse 98 Oximetry ED Medical Decision Making - Lab Data Result diagrams: 10/28/18 15:10/28/18 15:09 Lab Results 10/28/18 10/28/18 10/28/18 Range/Units 15:09 15:09 15:09 WBC 6.1 (4.5-11.0) K/mm3 RBC 3.76 (3.65-5.03) M/mm3 Hgb 10.8 (10.1-14.3) gm/dl Hct 31.9 (30.3-42.9) % MCV 85 (79-97) fl MCH 29 (28-32) pg MCHC 34 (30-34) % RDW 17.3 H (13.2-15.2) % Plt Count 305 (140-440) K/mm3 Lymph % (Auto) 19.7 (13.4-35.0) % Wolfe % (Auto) 11.5 H (0.0-7.3) % Eos % (Auto) 3.7 (0.0-4.3) % Baso % (Auto) 1.5 (0.0-1.8) % Lymph # 1.2 (1.2-5.4) K/mm3 Wolfe # 0.7 (0.0-0.8) K/mm3 Eos # 0.2 (0.0-0.4) K/mm3 Baso # 0.1 (0.0-0.1) K/mm3 Seg Neutrophils % 63.6 (40.0-70.0) % Seg Neutrophils # 3.9 (1.8-7.7) K/mm3 PT 12.9 (12.2-14.9) Sec. INR 1.00 (0.87-1.13) APTT 27.1 (24.2-36.6) Sec. Sodium 144 (137-145) mmol/L Potassium 3.7 (3.6-5.0) mmol/L Chloride 104.4 (98-107) mmol/L Carbon Dioxide 26 (22-30) mmol/L Anion Gap 17 mmol/L BUN 12 (7-17) mg/dL Creatinine 1.0 (0.7-1.2) mg/dL Estimated GFR > 60 ml/min BUN/Creatinine Ratio 12 % Glucose 124 H (65-100) mg/dL Calcium 9.2 (8.4-10.2) mg/dL - EKG Data -: EKG Interpreted by Me EKG shows normal: sinus rhythm, axis (qrs 61), QRS complexes (qrsd 93) Rate: normal (79) - Medical Decision Making case d/w Dr Wilder plan to admit for dvt lovenox 1mg/kg given in ed. sinus rhythm on ekg - Differential Diagnosis DVT, PE, muscle strain Critical Care Time: No Critical care attestation.: If time is entered above; I have spent that time in minutes in the direct care of this critically ill patient, excluding procedure time. ED Disposition Clinical Impression: Acute deep vein thrombosis (DVT) of left lower extremity Disposition: OP ADMIT IP TO THIS HOSP Is pt being admited?: Yes Condition: Stable Time of Disposition: 16:09 (harriet
[2018-10-28 16:15] LABS: BUN/Creatinine Ratio 12; Blood Urea Nitrogen 12 mg/dL (7-17); Calcium 9.2 mg/dL (8.4-10.2); Hemolysis Index 0
[2018-10-29] MEDS ORDERED: TYLENOL PO PRN (01:06)
[2018-10-29] MEDS ORDERED: PROVENTIL IH PRN (01:07)
[2018-10-29] MEDS: ALDACTONE PO SCH ×3 (02:06→22:31)
[2018-10-29] MEDS ORDERED: APRESOLINE IV PRN (06:01)
[2018-10-29] MEDS: NEURONTIN PO SCH ×3 (07:41→22:32)
[2018-10-29] MEDS: PROTONIX PO SCH (10:08)
[2018-10-29] MEDS: GLUCOPHAGE PO SCH (10:08)
[2018-10-29] MEDS: LOVENOX SUB-Q SCH ×2 (10:09→22:32)
[2018-10-29] MEDS: NORVASC PO SCH (10:12)
[2018-10-29] MEDS: AMARYL PO SCH (10:13)
--- NOTE | 2018-10-29 21:03 | History and Physical Report ---
History of Present Illness Date of examination: 10/28/18 Date of admission: 10/28/18 16:33 Chief complaint: SOB/leg swelling/painful. History of present illness: Was called on this patient for B/L LE swelling, with erythema, and pain, she had Doppler venous US revealing DVT on both LE., patient was sent to the Er for evaluation. She was admitted for full w/up, and evaluation.Patient is started on anti coag with LMWH Sc. She is morbidly obese, and has hx of Dm -2, as well as COPD, and sedentary life styles.She stated Fhx of hyper coagulable. She will be eventually switched on Eliquis upon D/C. Past History Past Medical History: COPD Social history: no significant social history Family history: other (Hypercoagulable.) Medications and Allergies Allergies Allergy/AdvReac Type Severity Reaction Status Date / Time No Known Allergies Allergy Verified 10/02/18 04:22 Home Medications Medication Instructions Recorded Confirmed Last Taken Type AtorvaSTATin [Lipitor] 20 mg PO QHS 10/03/18 10/28/18 10/01/18 History Gabapentin [Neurontin] 100 mg PO Q8HR 10/03/18 10/28/18 10/01/18 History Glimepiride [Amaryl] 4 mg PO QAM 10/03/18 10/28/18 10/01/18 History Metformin HCl [metFORMIN] 500 mg PO DAILY 10/03/18 10/28/18 10/01/18 History Omeprazole 40 mg PO QAM 10/03/18 10/28/18 10/01/18 History amLODIPine [Norvasc] 10 mg PO DAILY 10/03/18 10/28/18 10/01/18 History ALBUTEROL NEB's [Proventil 0.083% 2.5 mg IH Q3HRT PRN nebu 10/16/18 10/28/18 Unknown Rx NEBS] Acetaminophen [Acetaminophen TAB] 650 mg PO Q4H PRN tablet 10/16/18 10/28/18 Unknown Rx Insulin Glargine [Lantus VIAL] 15 units SUB-Q QHS units 10/16/18 10/28/18 Unknown Rx Lispro Insulin [HumaLOG] 0 unit SUB-Q ACHS units 10/16/18 10/28/18 Unknown Rx Spironolactone [Aldactone] 25 mg PO BID tablet 10/16/18 10/28/18 Unknown Rx Active Meds: Active Medications Acetaminophen (Tylenol) 650 mg PO Q6H PRN PRN Reason: Pain, Mild (1-3) Albuterol (Proventil) 2.5 mg IH Q4HRT PRN PRN Reason: Shortness Of Breath Amlodipine Besylate (Norvasc) 10 mg PO QDAY [facility] Last Admin: 10/29/18 10:12 Dose: 10 mg Documented by: Atorvastatin Calcium (Lipitor) 20 mg PO QHS [facility] Enoxaparin Sodium (Lovenox) 170 mg SUB-Q Q12HR [facility] Last Admin: 10/29/18 10:09 Dose: 170 mg Documented by: Gabapentin (Neurontin) 100 mg PO Q8HR [facility] Last Admin: 10/29/18 14:09 Dose: 100 mg Documented by: Glimepiride (Amaryl) 4 mg PO QDDIAB [facility] Last Admin: 10/29/18 10:13 Dose: 4 mg Documented by: Hydralazine HCl (Apresoline) 10 mg IV Q4HR PRN PRN Reason: Blood Pressure Insulin Glargine (Lantus) 15 units SUB-Q QHS [facility] Metformin HCl (Glucophage) 500 mg PO QDDIAB [facility] Last Admin: 10/29/18 10:08 Dose: 500 mg Documented by: Pantoprazole Sodium (Protonix) 40 mg PO QDAY [facility] Last Admin: 10/29/18 10:08 Dose: 40 mg Documented by: Spironolactone (Aldactone) 25 mg PO BID [facility] Last Admin: 10/29/18 10:12 Dose: 25 mg Documented by: Review of Systems Constitutional: weight gain Breasts: deferred Cardiovascular: chest pain Respiratory: shortness of breath Exam - Constitutional Vitals: Temp Pulse Resp BP Pulse Ox 98.6 F 76 20 143/65 94 10/29/18 16:51 10/29/18 16:51 10/29/18 16:51 10/29/18 16:51 10/29/18 16:51 General appearance: Present: mild distress, well-nourished, obese - EENT Eyes: Present: PERRL ENT: hearing intact, clear oral mucosa - Neck Neck: Present: supple, normal ROM - Respiratory Respiratory: bilateral: diminished - Cardiovascular Heart Sounds: Present: S1 & S2. Absent: rub, click - Extremities Extremities: pulses symmetrical, No edema Peripheral Pulses: within normal limits - Abdominal General gastrointestinal: Present: soft, non-tender, non-distended, normal bowel sounds Female genitourinary: Present: deferred - Rectal Rectal Exam: deferred - Integumentary Integumentary: Present: clear, warm, dry - Musculoskeletal Musculoskeletal: strength equal bilaterally, other (bilateral LE pain.) - Psychiatric Psychiatric: appropriate mood/affect, intact judgment & insight - Neurologic Neurologic: CNII-XII intact, moves all extremities Results - Labs CBC & Chem 7: 10/28/18 15:09 10/28/18 15:09 Labs: Abnormal lab results 10/28/18 10/29/18 10/29/18 Range/Units 22:53 07:45 11:22 POC Glucose 178 H 147 H 172 H (70-105) 10/29/18 Range/Units 16:26 POC Glucose 106 H (70-105) Assessment and Plan - Patient Problems (1) Acute deep vein thrombosis (DVT) of left lower extremity Current Visit: Yes Status: Acute Plan to address problem: Full w/up , and anti coag. (2) Diabetes Current Visit: Yes Status: Acute Plan to address problem: tight control of BG. (3) Obesities, morbid Current Visit: Yes Status: Acute Plan to address problem: supportive care, (4) COPD (chronic obstructive pulmonary disease) Current Visit: Yes Status: Acute Plan to address problem: oxygen support.
[2018-10-29] MEDS: LANTUS SUB-Q SCH (23:30)
[2018-10-30] MEDS: NEURONTIN PO SCH ×2 (06:09→15:07)
--- NOTE | 2018-10-30 09:16 | XRay Report ---
AP CHEST: HISTORY: DVT Borderline to mild cardiomegaly and pulmonary venous congestion are suspected. There is poor penetration due to body habitus but the lungs appear grossly clear. The bony structures are unremarkable. IMPRESSION: Borderline to mild cardiomegaly and pulmonary venous congestion. Lungs grossly clear.
--- NOTE | 2018-10-30 09:19 | Nuclear Medicine Report ---
LUNG SCAN, VENTILATION AND PERFUSION: History: Left lower extremity DVT, coagulopathy, shortness of breath. Technique: 5mci of Tc99m MAA was infused for the perfusion images. 15mci XE 133 gas was inhaled for the ventilatory images. Correlation is made with a chest x-ray dated 10/30/18. Findings: Inhalation of Xenon gas demonstrates a normal distribution of the activity throughout both lungs. The wash out phases show mild retention of the radiotracer bilaterally consistent with mild obstructive pulmonary disease. After injection of Technetium 99m macroaggregated albumin gamma camera imaging of the lungs in multiple projections demonstrates normal pulmonary contours with a homogeneous distribution of activity. No focal areas of perfusion deficiency are identified. IMPRESSION: Low probability for pulmonary embolus. Findings suggestive of mild COPD.
[2018-10-30] MEDS: GLUCOPHAGE PO SCH (09:32)
[2018-10-30] MEDS: AMARYL PO SCH (09:32)
[2018-10-30] MEDS: PROTONIX PO SCH (11:36)
[2018-10-30] MEDS: NORVASC PO SCH (11:37)
[2018-10-30] MEDS: ALDACTONE PO SCH (11:37)
[2018-10-30] MEDS: LOVENOX SUB-Q SCH (11:41)
--- NOTE | 2018-10-30 19:23 | Progress Note ---
Assessment and Plan - Patient Problems (1) Acute deep vein thrombosis (DVT) of left lower extremity Current Visit: Yes Status: Acute Plan to address problem: continue anti coagulation. (2) Diabetes Current Visit: Yes Status: Chronic Plan to address problem: tight control of BG. (3) Obesities, morbid Current Visit: Yes Status: Acute Plan to address problem: supportive care, (4) COPD (chronic obstructive pulmonary disease) Current Visit: Yes Status: Acute Plan to address problem: oxygen support. Subjective Date of service: 10/30/18 Principal diagnosis: DVT Interval history: patient resting in bed, nad, still on LMWH, will start bridging her with eliquis,and plan d/c with Eliquis.V/Q scan with low probability for PE, d dimer elevated. Objective - Constitutional Vitals: Vital Signs - 12hr 10/30/18 10/30/18 10/30/18 10:00 11:35 11:37 Temperature 98.1 F Pulse Rate 74 74 Respiratory 18 Rate Blood Pressure 159/67 159/67 Blood Pressure [Right] O2 Sat by Pulse 94 94 Oximetry 10/30/18 18:45 Temperature 98.3 F Pulse Rate 74 Respiratory 20 Rate Blood Pressure Blood Pressure 171/78 [Right] O2 Sat by Pulse 93 Oximetry General appearance: Present: no acute distress, well-nourished - EENT Eyes: PERRL, EOM intact ENT: hearing intact, clear oral mucosa Ears: bilateral: normal - Neck Neck: supple, normal ROM - Respiratory Respiratory: bilateral: diminished - Breasts Breasts: deferred - Cardiovascular Rhythm: regular Heart Sounds: Present: S1 & S2. Absent: gallop, rub Extremities: pulses intact, No edema, normal color, Full ROM - Gastrointestinal General gastrointestinal: Present: soft, non-tender, non-distended, normal bowel sounds Rectal Exam: deferred - Genitourinary Female genitourinary: deferred - Integumentary Integumentary: clear, warm, dry - Musculoskeletal Musculoskeletal: 1, strength equal bilaterally - Neurologic Neurologic: moves all extremities - Psychiatric Psychiatric: memory intact, appropriate mood/affect, intact judgment & insight - Labs CBC & Chem 7: 10/28/18 15:09 10/28/18 15:09 Labs: Abnormal lab results 10/29/18 10/30/18 10/30/18 Range/Units 21:37 07:49 09:37 D-Dimer 627.53 H (0-234) ng/mlDDU POC Glucose 150 H 156 H (70-105) 10/30/18 Range/Units 12:23 D-Dimer (0-234) ng/mlDDU POC Glucose 187 H (70-105) Medications & Allergies - Medications Allergies/Adverse Reactions: Allergies No Known Allergies Allergy (Verified 10/02/18 04:22) Home Medications: Home Medications Medication Instructions Recorded Confirmed Last Taken Type AtorvaSTATin [Lipitor] 20 mg PO QHS 10/03/18 10/28/18 10/01/18 History Gabapentin [Neurontin] 100 mg PO Q8HR 10/03/18 10/28/18 10/01/18 History Glimepiride [Amaryl] 4 mg PO QAM 10/03/18 10/28/18 10/01/18 History Metformin HCl [metFORMIN] 500 mg PO DAILY 10/03/18 10/28/18 10/01/18 History Omeprazole 40 mg PO QAM 10/03/18 10/28/18 10/01/18 History amLODIPine [Norvasc] 10 mg PO DAILY 10/03/18 10/28/18 10/01/18 History ALBUTEROL NEB's [Proventil 0.083% 2.5 mg IH Q3HRT PRN nebu 10/16/18 10/28/18 Unknown Rx NEBS] Acetaminophen [Acetaminophen TAB] 650 mg PO Q4H PRN tablet 10/16/18 10/28/18 Unknown Rx Insulin Glargine [Lantus VIAL] 15 units SUB-Q QHS units 10/16/18 10/28/18 Unknown Rx Lispro Insulin [HumaLOG] 0 unit SUB-Q ACHS units 10/16/18 10/28/18 Unknown Rx Spironolactone [Aldactone] 25 mg PO BID tablet 10/16/18 10/28/18 Unknown Rx Active Medications: Generic Name Dose Route Start Last Admin Trade Name Freq PRN Reason Stop Dose Admin Acetaminophen 650 mg 10/29/18 01:06 Tylenol PO Q6H PRN Pain, Mild (1-3) Albuterol 2.5 mg 10/29/18 01:07 Proventil IH Q4HRT PRN Shortness Of Breath Amlodipine Besylate 10 mg 10/29/18 10:00 10/30/18 11:37 Norvasc PO 10 mg QDAY KATHY Administration Atorvastatin Calcium 20 mg 10/29/18 22:00 10/29/18 22:31 Lipitor PO 20 mg QHS KATHY Administration Enoxaparin Sodium 170 mg 10/29/18 10:00 10/30/18 11:41 Lovenox SUB-Q 170 mg Q12HR KATHY Administration Gabapentin 100 mg 10/29/18 06:00 10/30/18 15:07 Neurontin PO 100 mg Q8HR KATHY Administration Glimepiride 4 mg 10/29/18 08:00 10/30/18 09:32 Amaryl PO 4 mg QDDIAB KATHY Administration Hydralazine HCl 10 mg 10/29/18 06:01 Apresoline IV Q4HR PRN Blood Pressure Insulin Glargine 15 units 10/29/18 22:00 10/29/18 23:30 Lantus SUB-Q 15 units QHS KATHY Administration Insulin Human Lispro 0 unit 10/30/18 22:00 Humalog SUB-Q ACHS [facility] Protocol Metformin HCl 500 mg 10/29/18 08:00 10/30/18 09:32 Glucophage PO 500 mg QDDIAB KATHY Administration Pantoprazole Sodium 40 mg 10/29/18 10:00 10/30/18 11:36 Protonix PO 40 mg QDAY KATHY Administration Spironolactone 25 mg 10/29/18 01:30 10/30/18 11:37 Aldactone PO 25 mg BID KATHY Administration
[2018-10-31] MEDS: LANTUS SUB-Q SCH ×2 (00:35→22:59)
[2018-10-31] MEDS: ELIQUIS PO SCH ×3 (00:35→22:38)
[2018-10-31] MEDS: ALDACTONE PO SCH ×3 (00:35→22:45)
[2018-10-31] MEDS: LOVENOX SUB-Q SCH ×2 (00:36→11:27)
[2018-10-31] MEDS: NEURONTIN PO SCH ×4 (00:37→22:39)
[2018-10-31] MEDS: HumaLOG SUB-Q SCH ×5 (00:37→23:00)
[2018-10-31] MEDS: AMARYL PO SCH (09:07)
[2018-10-31] MEDS: GLUCOPHAGE PO SCH (09:07)
[2018-10-31] MEDS: NORVASC PO SCH (11:00)
[2018-10-31] MEDS: PROTONIX PO SCH (11:29)
--- NOTE | 2018-10-31 22:11 | Progress Note ---
Assessment and Plan - Patient Problems (1) Acute deep vein thrombosis (DVT) of left lower extremity Current Visit: Yes Status: Acute Plan to address problem: continue anti coagulation. (2) Diabetes Current Visit: Yes Status: Chronic Plan to address problem: tight control of BG. (3) Obesities, morbid Current Visit: Yes Status: Acute Plan to address problem: supportive care, (4) COPD (chronic obstructive pulmonary disease) Current Visit: Yes Status: Acute Plan to address problem: oxygen support. Subjective Date of service: 10/31/18 Principal diagnosis: DVT Interval history: patient resting in bed, nad, still on LMWH, will start bridging her with eliquis,and plan d/c with Eliquis.V/Q scan with low probability for PE, d dimer elevated. Patient seen/ examined, resting in bed, labs reviewed, no new issues at this time.Patient will be d/c on Eliquis tomorrow, back to the NH, if bed ready. case planner to follow up. Objective - Constitutional Vitals: Vital Signs - 12hr 10/31/18 10/31/18 10/31/18 11:00 11:35 16:49 Temperature 98.2 F 98.4 F Pulse Rate 68 74 Respiratory 22 24 Rate Blood Pressure 151/74 151/74 158/74 O2 Sat by Pulse 94 95 Oximetry General appearance: Present: mild distress, well-nourished - EENT Eyes: PERRL, EOM intact ENT: hearing intact, clear oral mucosa Ears: bilateral: normal - Neck Neck: supple, normal ROM - Respiratory Respiratory effort: normal Respiratory: bilateral: CTA - Breasts Breasts: deferred - Cardiovascular Rhythm: regular Heart Sounds: Present: S1 & S2. Absent: gallop, rub Extremities: pulses intact, No edema, normal color, Full ROM - Gastrointestinal General gastrointestinal: Present: soft, non-tender, non-distended, normal bowel sounds Rectal Exam: deferred - Genitourinary Female genitourinary: deferred - Integumentary Integumentary: clear, warm, dry - Musculoskeletal Musculoskeletal: 1, strength equal bilaterally - Neurologic Neurologic: moves all extremities - Psychiatric Psychiatric: appropriate mood/affect, intact judgment & insight, memory intact - Labs CBC & Chem 7: 10/28/18 15:09 10/28/18 15:09 Labs: Abnormal lab results 10/30/18 10/31/18 10/31/18 Range/Units 22:19 07:49 11:44 POC Glucose 152 H 136 H 171 H (70-105) 10/31/18 Range/Units 21:40 POC Glucose 143 H (70-105) Medications & Allergies - Medications Allergies/Adverse Reactions: Allergies No Known Allergies Allergy (Verified 10/02/18 04:22) Home Medications: Home Medications Medication Instructions Recorded Confirmed Last Taken Type AtorvaSTATin [Lipitor] 20 mg PO QHS 10/03/18 10/28/18 10/01/18 History Gabapentin [Neurontin] 100 mg PO Q8HR 10/03/18 10/28/18 10/01/18 History Glimepiride [Amaryl] 4 mg PO QAM 10/03/18 10/28/18 10/01/18 History Metformin HCl [metFORMIN] 500 mg PO DAILY 10/03/18 10/28/18 10/01/18 History Omeprazole 40 mg PO QAM 10/03/18 10/28/18 10/01/18 History amLODIPine [Norvasc] 10 mg PO DAILY 10/03/18 10/28/18 10/01/18 History ALBUTEROL NEB's [Proventil 0.083% 2.5 mg IH Q3HRT PRN nebu 10/16/18 10/28/18 Unknown Rx NEBS] Acetaminophen [Acetaminophen TAB] 650 mg PO Q4H PRN tablet 10/16/18 10/28/18 Unknown Rx Insulin Glargine [Lantus VIAL] 15 units SUB-Q QHS units 10/16/18 10/28/18 Unknown Rx Lispro Insulin [HumaLOG] 0 unit SUB-Q ACHS units 10/16/18 10/28/18 Unknown Rx Spironolactone [Aldactone] 25 mg PO BID tablet 10/16/18 10/28/18 Unknown Rx Active Medications: Generic Name Dose Route Start Last Admin Trade Name Freq PRN Reason Stop Dose Admin Acetaminophen 650 mg 10/29/18 01:06 Tylenol PO Q6H PRN Pain, Mild (1-3) Albuterol 2.5 mg 10/29/18 01:07 Proventil IH Q4HRT PRN Shortness Of Breath Amlodipine Besylate 10 mg 10/29/18 10:00 10/31/18 11:00 Norvasc PO 10 mg QDAY KATHY Administration Apixaban 10 mg 10/30/18 22:00 10/31/18 11:28 Eliquis PO 11/06/18 10:01 10 mg Q12HR KATHY Administration Apixaban 5 mg 11/06/18 22:00 Eliquis PO Q12HR KATHY Atorvastatin Calcium 20 mg 10/29/18 22:00 10/31/18 00:41 Lipitor PO 20 mg QHS KATHY Administration Gabapentin 100 mg 10/29/18 06:00 10/31/18 13:03 Neurontin PO 100 mg Q8HR KATHY Administration Glimepiride 4 mg 10/29/18 08:00 10/31/18 09:07 Amaryl PO 4 mg QDDIAB KATHY Administration Hydralazine HCl 10 mg 10/29/18 06:01 Apresoline IV Q4HR PRN Blood Pressure Insulin Glargine 15 units 10/29/18 22:00 10/31/18 00:35 Lantus SUB-Q 15 units QHS KATHY Administration Insulin Human Lispro 0 unit 10/30/18 22:00 10/31/18 16:30 Humalog SUB-Q Not Given [facility] Protocol Metformin HCl 500 mg 10/29/18 08:00 10/31/18 09:07 Glucophage PO 500 mg QDDIAB KATHY Administration Pantoprazole Sodium 40 mg 10/29/18 10:00 10/31/18 11:29 Protonix PO 40 mg QDAY KATHY Administration Spironolactone 25 mg 10/29/18 01:30 10/31/18 11:00 Aldactone PO 25 mg BID KAHTY Administration
[2018-11-01] MEDS ORDERED: LASIX IV ONE (05:36)
[2018-11-01] MEDS: NEURONTIN PO SCH ×2 (06:08→14:51)
[2018-11-01] MEDS: HumaLOG SUB-Q SCH ×3 (08:36→17:55)
[2018-11-01] MEDS: GLUCOPHAGE PO SCH (08:41)
[2018-11-01] MEDS: AMARYL PO SCH (08:41)
[2018-11-01] MEDS: NORVASC PO SCH (09:26)
[2018-11-01] MEDS: PROTONIX PO SCH (09:26)
[2018-11-01] MEDS: ELIQUIS PO SCH (09:26)
[2018-11-01] MEDS: ALDACTONE PO SCH (09:26)
[2018-11-01 13:01] LABS: Protein S, Free 147 % normal (50-147); Protein S, Total 145 % normal (70-140)
--- NOTE | 2018-11-01 16:19 | Discharge Summary ---
Providers - Providers Date of Admission: 10/28/18 16:33 Date of discharge: 11/01/18 Attending physician: MEHRAN VANN 10/30/18 10:36 Occupational Therapy Evaluate and Treat [CONS] Routine Comment: Reason For Exam: generalized weakness Physical Therapy Evaluation and Treat [CONS] Routine Comment: Reason For Exam: generalized weakness Primary care physician: EDWARD WELLS Hospitalization Reason for admission: Bilateral LE DVT Condition: Stable Pertinent studies: Venous doppler US, and v/Q scan Hospital course: Patient presented to the ER, withLE DVT, and SOB, Chest, also hx of COPD, and pulm vascular congestion.She was started on LMWH, and subsequently bridged with Eliquis. She had Doppler, and V/Q scans done.she tolerated tx fairly well. She has indicated/ wished to go home once d/d, and not back to the NH. the rn case manager hospice have set her up with home health.She is seen/ examined today, no new issues, patient is given prescription for eliquis 10mg Bid for the remaining 10 doses, then she will go on 5mg po bid ,hence forth. She will either follow up with her PCP, or me in the office.She will go to the ER if any issues.W/up lab results ,still pending. Disposition: [id number] HOME UNDER HOME HLTH - Discharge Diagnoses (1) Acute deep vein thrombosis (DVT) of left lower extremity Status: Acute (2) Diabetes Status: Chronic (3) Obesities, morbid Status: Chronic (4) COPD (chronic obstructive pulmonary disease) Status: Chronic Core Measure Documentation - Palliative Care Palliative Care/ Comfort Measures: Not Applicable - Core Measures Any of the following diagnoses?: DVT/PE - VTE Discharge Requirements Deep Vein Thrombosis/Pulmonary Embolism Present on Admission: Yes Has pt received <5 days of overlap therapy or INR<2.0: Yes Anticoagulant overlap therapy prescribed at discharge: Yes Exam - Constitutional Vitals: Temp Pulse Resp BP Pulse Ox 98.3 F 72 24 180/91 95 11/01/18 11:27 11/01/18 11:27 11/01/18 11:27 11/01/18 11:27 11/01/18 11:27 General appearance: Present: no acute distress, well-nourished - EENT Eyes: Present: PERRL ENT: hearing intact, clear oral mucosa - Neck Neck: Present: supple, normal ROM - Respiratory Respiratory: bilateral: CTA Details: she has COPD, and its sxs. - Cardiovascular Heart Sounds: Present: S1 & S2. Absent: rub, click - Extremities Extremities: pulses symmetrical, No edema Peripheral Pulses: within normal limits - Abdominal General gastrointestinal: Present: soft, non-tender, non-distended, normal bowel sounds Female genitourinary: Present: deferred - Rectal Rectal Exam: deferred - Integumentary Integumentary: Present: clear, warm, dry - Musculoskeletal Musculoskeletal: gait normal, strength equal bilaterally - Psychiatric Psychiatric: appropriate mood/affect, intact judgment & insight - Neurologic Neurologic: CNII-XII intact, moves all extremities Plan Activity: no restrictions Diet: diabetic Follow up with: EDWARD WELSL MD [Primary Care Provider] - 7 Days MEHRAN VANN DO [Staff Physician] - 7 Days
[2018-11-01 17:54] VITALS: BP 149/70
[2018-11-06] MEDS ORDERED: ELIQUIS PO SCH (22:00)
== END 2018-11-01 18:00 | disposition home health service (06) | DRG 300 ==
LOC: ED 14:41 → 3A 16:33
PROVIDERS: ADMIT Internal Medicine Hematology & Oncology; ATTEND Internal Medicine Hematology & Oncology
DX: I82.492 Acute embolism and thrombosis of other specified deep vein of left lower extremity (principal); Z68.43 Body mass index [BMI] 50.0-59.9, adult; K21.9 Gastro-esophageal reflux disease without esophagitis; E11.9 Type 2 diabetes mellitus without complications; J44.9 Chronic obstructive pulmonary disease, unspecified; E66.01 Morbid (severe) obesity due to excess calories; Z71.3 Dietary counseling and surveillance; Z79.899 Other long term (current) drug therapy; Z79.51 Long term (current) use of inhaled steroids; Z79.4 Long term (current) use of insulin; Z79.01 Long term (current) use of anticoagulants; Z87.891 Personal history of nicotine dependence; Z90.89 Acquired absence of other organs
CPT/HCPCS: 36415; 71045; 78582; 80048; 82962; 85025; 85220; 85305; 85307; 85379; 85610; 85730; 86140; 93005; 93010; G0378; A9270-GY; A9540; A9558; J0360; J1650; J1815; J1940